=== PATIENT | female | born 1940 | race Caucasian/White ===

== ENCOUNTER 2017-08-01 09:17 | Outpatient (CLI) | payer MEDICARE | END 2017-08-01 09:18 | disposition home or self-care (01) | LOC: BICMAMMO 09:17 | PROVIDERS: ATTEND Obstetrics & Gynecology | DX: Z12.31 Encounter for screening mammogram for malignant neoplasm of breast (principal); Z80.3 Family history of malignant neoplasm of breast; R92.1 Mammographic calcification found on diagnostic imaging of breast | CPT/HCPCS: 77063; 77067 ==

== ENCOUNTER 2018-01-22 16:10 | Inpatient (IN) | payer MEDICARE ==
[2018-01-22 17:01] LABS: Hemoglobin 14.6 g/dL (12.0-16.0); Mean Corpuscular HGB CONC 33.3 g/dL (32.0-36.0); Mean Corpuscular Hemoglobin 35.1 pg (27.0-31.0); Mean Platelet Volume 9.1 fL (7.4-10.4); Platelet Count 270 thou/uL (130-400); RBC Distribution Width 11.9 % (11.5-14.5); Red Blood Cell (RBC) Count 4.16 mill/uL (4.20-5.40); White Blood Cell (WBC) Count 9.6 thou/uL (4.8-10.8)
[2018-01-22 17:21] LABS: #Basophils 0.1 thou/uL (0.0-0.2); #Eosinphils 0.1 thou/uL (0.0-0.7); #Lymphocytes 1.8 thou/uL (1.20-3.40); #Monocytes 0.8 thou/uL (0.11-0.59); #Neutrophils 6.8 thou/uL (1.40-6.50); %Basophils 0.6 % (0.0-1.0); %Eosinophils 1.2 % (0.0-10.0); %Lymphocytes 18.6 % (21.0-51.0); %Monocytes 8.7 % (0.0-10.0); %Neutrophils 70.9 % (42.0-75.0); MDiff Complete? YES; Macrocytosis SLIGHT = 6-15 cells (100X) (0-5/hpf); PLT Morphology Comment Appears Adequate
[2018-01-22 17:29] LABS: ALT (SGPT) 20 U/L (8-55); AST (SGOT) 30 U/L (5-34); Albumin 4.2 g/dL (3.4-4.8); Alkaline Phosphatase 70 U/L (40-150); Anion Gap 12 mmol/L (10-20); BUN (Urea Nitrogen) 19 mg/dL (9.8-20.1); Bilirubin, Total 0.3 mg/dL (0.2-1.2); CK (CPK) 67 U/L (29-168); Calc. Creatinine Clearance 0 mL/min (70-130); Carbon Dioxide 27 mmol/L (23-31); Chloride 101 mmol/L (98-107); Estimated GFR-MDRD 58; Globulin 4.3 g/dL (2.4-3.5); Glucose 136 mg/dL (83-110); Lipase 39 U/L (8-78); Potassium 3.9 mmol/L (3.5-5.1); Protein, Total 8.5 g/dL (6.0-8.3); Sodium 136 mmol/L (136-145)
[2018-01-22 17:33] LABS: CKMB 1.6 ng/mL (0-6.6); Troponin I 0.011 ng/mL (< 0.028)
[2018-01-22] MEDS ORDERED: Metoprolol Tartrate 5 MG/5 ML VIAL ONE (17:43)
[2018-01-22] MEDS ORDERED: Digoxin 0.5 MG/2 ML AMP ONE (18:31)
[2018-01-22 22:18] VITALS: BMI 28.3
[2018-01-22] MEDS ORDERED: Ondansetron PF 4 MG/2 ML Vial IVP PRN (23:36)
[2018-01-22] MEDS ORDERED: Acetaminophen 325 MG TAB PO PRN (23:36)
[2018-01-22] MEDS ORDERED: Diltiazem 125 MG in Sodium Chloride 0.9% 100 ML IVPB SCH (23:45)
[2018-01-22] MEDS ORDERED: Enoxaparin Sodium 80 MG/0.8 ML SYRINGE SC SCH (23:45)
--- NOTE | 2018-01-23 00:13 | HP ---
PRIMARY CARE PROVIDER: Kesha Scott M.D. CHIEF COMPLAINT: Palpitations. HISTORY OF PRESENT ILLNESS: Ms. Fleming is a pleasant 77-year-old lady who was seen at [facility] on 01/22/2018. She reports that over the last month, she has had on and off episodes of palpitations. She denies an y chest pain. She denies any lightheadedness. She denies any fevers or chills. The episodes usually last about 5 minutes. The latest episode started today when she was sewing. It was continuous. She came to the emergency room because of ongoing palpitations. REVIEW OF SYSTEMS: All other systems reviewed and found to be negative. PAST MEDICAL HISTORY: Dyslipidemia and hypertension. PAST SURGICAL HISTORY: None. SOCIAL HISTORY: The patient denies tobacco use, alcohol use or recreational drug use. CODE STATUS: She is FULL CODE. ALLERGIES: No known drug allergies. CURRENT MEDICATIONS: Lisinopril/hydrochlorothiazide 20/25 mg daily, simvastatin 20 mg daily, metopro lol tartrate 50 mg 2 times a day, lisinopril 20 mg daily, and omeprazole 20 mg daily. PHYSICAL EXAMINATION: GENERAL: On examination, Ms. Fleming is awake and alert, not in acute distress. VITAL SIGNS: Blood pressure is 140/88, pulse 115, respiratory rate 16, and oxygen saturation 96% on room air. She is afebrile. EYES: No scleral icterus, no conjunctival pallor. ENT: Moist mucosal membranes, no oropharyngeal erythema or exudates. NECK: Supple, nontender. Trachea is midline. RESPIRATORY: Accessory muscles of breathing are not active. Chest wall movements are symmetric bila terally. LUNGS: Clear to auscultation without wheeze, rhonchi or crepitations. CARDIOVASCULAR: S1 and S2 are heard, tachycardic and irregular. Peripheral pulses palpable. No car otid bruit, no pericardial rub. ABDOMEN: Soft, nontender, bowel sounds heard, no hepatomegaly, no splenomegaly. NEUROLOGIC: Cranial nerves II-XII are intact, deep tendon reflexes 2+. MUSCULOSKELETAL: Power is 5/5 in all 4 extremities. Normal range of movement at all major extremity joints. SKIN: No rashes or subcutaneous nodules. LYMPHATIC: No cervical lymphadenopathy. PSYCHIATRIC: Normal mood, normal affect, patient is oriented to person, place, and time. LABORATORY DATA: Ms. Fleming's labs and investigations were reviewed. I reviewed her electrocardiogr am, which shows atrial fibrillation with rapid ventricular response. I also reviewed her chest x-ray done at [place], which does not show any pulmonary infiltrates. She has normal white count, no rmal hemoglobin, normal platelet count, normal electrolytes, normal creatinine, elevated serum total protein of 8.5, elevated globulin of 4.3, normal albumin, normal troponin I and normal lipase. ASSESSMENT AND PLAN: Ms. Fleming is a pleasant 77-year-old lady who was seen at [facility] on 01/22/2018. Her problem list includes: 1. Atrial fibrillation with rapid ventricular response: Ms. Fleming is presenting with atrial fibril lation with rapid ventricular response. She actually initially presented to the emergency room at [facility] earlier today. She was discharged home from [place], but started having symptoms pierre rtly after going home. She was then advised to go to the emergency room at [facility]. Her e, she has been started on a Cardizem drip. She will be on the Cardizem drip for now. We will consu lt Cardiology Service. We will also start her on therapeutic Lovenox. We will also check TSH. 2. Hypertension: We will monitor vital signs, titrate antihypertensives as needed. 3. Dyslipidemia: We will resume her statin. 4. Gastroesophageal reflux disease: Continue omeprazole, stable. Many thanks for allowing me to participate in your patient's care. Please feel free to contact me wi th any questions or concerns. LEVEL OF RISK: High. LEVEL OF COMPLEXITY: High.
[2018-01-23] MEDS ORDERED: Digoxin 0.5 MG/2 ML AMP SLOW IVP SCH ×4 (03:30→14:30)
[2018-01-23 05:24] LABS: #Basophils 0.1 thou/uL (0.0-0.2); #Eosinphils 0.3 thou/uL (0.0-0.7); #Monocytes 0.9 thou/uL (0.11-0.59); #Neutrophils 5.5 thou/uL (1.40-6.50); %Basophils 0.6 % (0.0-1.0); %Eosinophils 3.4 % (0.0-10.0); %Lymphocytes 22.6 % (21.0-51.0); %Monocytes 10.6 % (0.0-10.0); %Neutrophils 62.7 % (42.0-75.0); Hemoglobin 13.3 g/dL (12.0-16.0); Mean Corpuscular HGB CONC 31.8 g/dL (32.0-36.0); Mean Corpuscular Hemoglobin 33.9 pg (27.0-31.0); Mean Platelet Volume 9.5 fL (7.4-10.4); Platelet Count 267 thou/uL (130-400); RBC Distribution Width 11.9 % (11.5-14.5); Red Blood Cell (RBC) Count 3.93 mill/uL (4.20-5.40); White Blood Cell (WBC) Count 8.7 thou/uL (4.8-10.8)
[2018-01-23 05:44] LABS: Anion Gap 16 mmol/L (10-20); BUN (Urea Nitrogen) 16 mg/dL (9.8-20.1); Calc. Creatinine Clearance 74 mL/min (70-130); Calcium 10.4 mg/dL (7.8-10.44); Carbon Dioxide 26 mmol/L (23-31); Chloride 101 mmol/L (98-107); Estimated GFR-MDRD 70; Glucose 106 mg/dL (83-110); Potassium 3.5 mmol/L (3.5-5.1); Sodium 139 mmol/L (136-145)
[2018-01-23] MEDS ORDERED: Sodium Chloride 0.9% 500 ML IV SCH (07:30)
[2018-01-23] MEDS ORDERED: Potassium Chloride 10 MEQ TAB PO SCH ×2 (08:00→17:00)
[2018-01-23] MEDS: Metoprolol Tartrate 50 MG TAB PO SCH ×3 (08:30→21:30)
[2018-01-23] MEDS ORDERED: Enoxaparin Sodium 80 MG/0.8 ML SYRINGE SC SCH (09:00)
[2018-01-23] MEDS ORDERED: Nitroglycerin 0.4 MG TAB (25 Tab Bottle) PO PRN (09:22)
[2018-01-23] MEDS ORDERED: Diltiazem 125 MG in Sodium Chloride 0.9% 100 ML IVPB SCH (09:30)
[2018-01-23] MEDS ORDERED: Metoprolol Tartrate 25 MG TAB PO SCH ×2 (09:30→21:00)
[2018-01-23] MEDS ORDERED: Magnesium 2 GM/50 ML 2 GM in Premix Bag 1 BAG IVPB SCH (09:45)
[2018-01-23 11:07] LABS: Troponin I 0.024 ng/mL (< 0.028)
[2018-01-23] MEDS: NS 0.9% w/ 40 MEQ KCL 1,000 ML IV SCH (12:54)
[2018-01-23] MEDS ORDERED: diphenhydrAMINE 25 MG CAP PO PRN (14:38)
[2018-01-23] MEDS ORDERED: Melatonin 3 MG TAB PO PRN (14:38)
--- NOTE | 2018-01-23 17:27 | CON ---
DATE OF CONSULTATION: 01/23/2018 HISTORY OF PRESENT ILLNESS. The patient is a 77-year-old woman who presents for evaluation of palpit ations. The patient states for several months she has had brief palpitations these usually last a fe w minutes. She went to the [facility] was noted be in irregular heart rhythm. She received IV metoprolol and was subsequently released. She went back. She developed again recurrent palpitations that would not resolve and came to the [facility]. The patient denies patel ving any chest discomfort. She denies any chest discomfort or dyspnea. The patient reports having d yspnea only with significant exertion. She denies any PND or orthopnea. PAST MEDICAL HISTORY: Significant for; 1. Hypertension. 2. Dyslipidemia. PAST SURGICAL HISTORY: She had a hysterectomy and she has had skin surgery. SOCIAL HISTORY: Nonsmoker. ALLERGIES: No known drug allergies. MEDICATIONS ON ADMISSION: Lisinopril/HCTZ 20/25 daily, Zocor 20 at bedtime, metoprolol 50 b.i.d., li sinopril 20 every day, Prilosec 20 daily. FAMILY HISTORY: There is a positive family history of father had a myocardial infarction. PHYSICAL EXAMINATION: GENERAL: This is an obese woman, in no acute distress. VITAL SIGNS: Blood pressure was 107/61. NECK: Showed no jugular distention. LUNGS: Clear to auscultation. HEART: Regular rate and rhythm, normal S1, S2, no murmurs. ABDOMEN: Distended. EXTREMITIES: No edema. VASCULAR: Radial pulses 2+. LABORATORY DATA: White blood cell count 8.7, hemoglobin 13.3, hematocrit 41.9. Her platelets are 26 7. Sodium 139, potassium 3.5, chloride 101, bicarbonate 26, BUN 16, creatinine is 0.8, troponin 0.01 1. TSH was 1.07. Her EKG revealed her to have atrial tachycardia with a rapid ventricular response. IMPRESSION: 1. Atrial tachycardia. 2. Hypertension. 3. Dyslipidemia. 4. Obesity. This patient presents with atrial tachycardia. The patient has received IV Cardizem and digoxin. Sh e remains with a rapid heart rate. We will give the patient for supplemental IV digoxin. We will as k EP to evaluate. She may benefit from electrocardioversion. We will follow this patient with you t hrough her hospitalization.
--- NOTE | 2018-01-23 18:22 | CON ---
DATE OF SERVICE: 01/23/2018 REFERRING PHYSICIAN: Gaetano Reilly M.D. I am seeing Ms. Fleming at our [facility] as electrophysiology business process consultant. Her problem s are: 1. Paroxysmal atrial arrhythmias. 1A. Paroxysmal palpitations with admission today with persistent atrial flutter with rapid ventricul ar rates. 1B. The patient spontaneously transitioned to atrial fibrillation on IV diltiazem and digoxin alone. 1C. Dizziness, palpitation, high symptomatic rhythm present. 2. No prior history of heart disease or heart attacks. Cardiac workup pending. 3. Coronary artery risk factors including hypertension and dyslipidemia. ALLERGIES: None noted. MEDICATIONS AT HOME: Include lisinopril/hydrochlorothiazide 20/25 mg daily, simvastatin 20 mg daily, metoprolol tartrate 50 mg 2 times a day, lisinopril 20 mg a day, omeprazole 20 mg daily. SUBJECTIVE: Ms. Fleming is here with rapid palpitations. This happened over the last month on and of . She had mild lightheadedness and not feeling well while these episodes occurred. They were usual ly self terminating but eventually sustained since yesterday. She has rapid palpitations. She came to the ER, was evaluated initially, sent home, but then her palpitations recurred and she came back t o the hospital again. She was eventually admitted for rate control. She was placed on diltiazem. I V digoxin administered, and her rate has slowed down some but atrial flutter then continued. Later, she spontaneously converted into atrial fibrillation with now controlled rates at 70 beats per minute . Currently denies angina, CHF. No PND or orthopnea. No stroke-like symptoms. No neurological defici ts. REVIEW OF SYSTEMS: Twelve-point review of systems otherwise unremarkable. . PAST MEDICAL HISTORY: As above. She has no prior history of heart disease or heart attacks. SOCIAL HISTORY: The patient denies smoking, ETOH, or drug abuse. FAMILY HISTORY: Significant for stent placement of a sister. OBJECTIVE DATA: VITAL SIGNS: Blood pressure is 133/68, heart rate 116, respirations 16, temperature 98.3 degrees Fah renheit. GENERAL: She is alert and oriented woman, in no apparent distress. NECK: Supple. Jugular veins not distended. CHEST: Coarse without crackles. CARDIAC: Heart sounds are irregularly irregular. S1 is variable. No murmur or gallop. ABDOMEN: Benign. Bowel sounds positive. EXTREMITIES: Without edema, clubbing, or cyanosis. Pulses are adequate. NEUROLOGIC: Patient nonfocal. MUSCULOSKELETAL: No joint swelling or deformity. SKIN: Without rash. DATABASE: EKGs reviewed initially revealing an atrial flutter with 2:1 AV conduction. The telemetry strips also reviewed with better rate control and typical isthmus-dependent flutter waves are clearl y visible. Subsequently a followup EKG at 2:27 p.m. reveals atrial fibrillation and not typical for atrial flutter anymore. LABORATORY DATA: White count is 8.7, hemoglobin , platelet count is 267. Sodium 139, potassium 3.5, BUN is 16, creatinine 0.8. The chest x-ray from 10:44 a.m. reveals no acute process. ASSESSMENT AND PLAN: Ms. Fleming is a pleasant 77-year-old woman without prior cardiac disease. She has intermittent rapid palpitations which has eventually sustained, and she was admitted with 2:1 con ducted atrial flutter, appears to be typical isthmus-dependent. She received IV diltiazem and digoxi n for successfully rate controlling her and her symptoms have improved with that. Though later, she developed true atrial fibrillation. We discussed the mechanism of both atrial fibrillation and flutter with her. We also detailed the po tential treatment options which could include KECIA-guided cardioversion and possible antiarrhythmic th erapy in addition to that. We also detailed the pros and cons about both approaches and chances of p roarrhythmia and strokes were detailed. On the other hand, I think overall me and the patient both w ould prefer rhythm control over rate control at this time. We also detailed the option of future ablation procedure as well. After discussion with Dr. Reilly , we are planning to do KECIA guided cardioversion today, possibly starting flecainide if no intracardi ac thrombus is present and significant structural heart disease is present. I would like to see her back in the office in 4-6 weeks. In the meantime, she would benefit from oral anticoagulation. Thank you for allowing me to participate in the care of this patient.
--- NOTE | 2018-01-23 19:51 | PDOC.PN ---
- Subjective Encounter Start Date: 01/23/18 Encounter Start Time: 10:30 Patient seen and examined for new onset Afib with RVR. Off Cardizem drip due to hypotension. No new complaints. No overnight events - Objective Resuscitation Status: Resuscitation Status FULL:Full Resuscitation MAR Reviewed: Yes Vital Signs & Weight: Vital Signs (12 hours) Temp Pulse Resp BP Pulse Ox 01/23/18 16:18 98 F 105 H 16 160/73 H 95 01/23/18 14:37 118 H 01/23/18 12:55 118 H 01/23/18 12:00 98.3 F 116 H 16 133/68 95 01/23/18 08:27 118 H 107/61 01/23/18 08:00 94 L Weight Weight 170 lb 4.8 oz Result Diagrams: 01/23/18 04:48 01/23/18 04:48 Radiology Reviewed by me: Yes (CXR - Neg) EKG Reviewed by me: Yes (Tele Afib/Aflutter) Phys Exam - Physical Examination Constitutional: NAD Respiratory: no wheezing, no rales, no rhonchi, clear to auscultation bilateral Cardiovascular: no rub, irregular S1S2 +, No heaves/pulsations Gastrointestinal: soft, non-tender, no distention, positive bowel sounds Musculoskeletal: no edema, pulses present Neurological: non-focal, normal sensation, moves all 4 limbs Psychiatric: normal affect, A&O x 3 Dx/Plan - Plan DVT proph w/SCDs 1. New onset Afib/Aflutter with RVR 2. HTN 3. HLD 4. GERD 5. Chronic hypercalcemia - PCP to follow 6. Hypomagnesemia PLAN: Cont Anticoag - She understands the risk of anticoag Resume Metoprolol at low dose Restart Cardizem drip at 2.5 mg/hr Hold Lisinopril AM labs Replace Magnessium Cont other meds as below Review of Systems - Review of Systems Respiratory: negative: Cough, Dry, Shortness of Breath, Hemoptysis, SOB with Excertion, Pleuritic Pain, Sputum, Wheezing Cardiovascular: negative: chest pain, palpitations, orthopnea, paroxysmal nocturnal dyspnea, edema, light headedness, other - Medications/Allergies Allergies/Adverse Reactions: Allergies Allergy/AdvReac Type Severity Reaction Status Date / Time No Known Allergies Allergy Verified 01/22/18 23:54 Medications: Current Medications Acetaminophen (Tylenol) 650 mg PO Q4H PRN PRN Reason: Headache/Fever/Mild Pain (1-3) Apixaban (Eliquis) 5 mg PO BID [facility] Atorvastatin Calcium (Lipitor) 10 mg PO HS [facility] Diphenhydramine HCl (Benadryl) 25 mg PO Q6H PRN PRN Reason: Itching & Insomnia Flecainide Acetate (Tambocor) 50 mg PO Q12HR [facility] Potassium Chloride/Sodium Chloride (Ns 0.9% W/ 40 Meq Kcl) 1,000 mls @ 50 mls/ hr IV .Q20H [facility] Last Admin: 01/23/18 12:54 Dose: 1,000 mls Lisinopril (Zestril) 20 mg PO HS [facility] Melatonin (Melatonin) 3 mg PO HS PRN PRN Reason: Insomnia Metoprolol Tartrate (Lopressor) 50 mg PO BID [facility] Nitroglycerin (Nitrostat) 0.4 mg PO Q5MIN PRN PRN Reason: Chest Pain Ondansetron HCl (Zofran) 4 mg IVP Q6H PRN PRN Reason: Nausea/Vomiting Pantoprazole Sodium (Protonix) 40 mg PO DAILY [facility] Last Admin: 01/23/18 08:30 Dose: 40 mg Potassium Chloride (Klor-Con 10) 10 meq PO BID-[facility] Last Admin: 01/23/18 16:23 Dose: Not Given Sodium Chloride (Flush - Normal Saline) 10 ml IVF PRN PRN PRN Reason: Saline Flush
[2018-01-23] MEDS ORDERED: Atorvastatin Calcium 10 MG TAB PO SCH (21:00)
[2018-01-23] MEDS ORDERED: Lisinopril 20 MG TAB PO SCH (21:00)
[2018-01-23] MEDS: Apixaban 5 MG TAB PO SCH (21:29)
[2018-01-23] MEDS: Flecainide 50 MG TAB PO SCH (21:29)
[2018-01-24 05:46] LABS: Hemoglobin 11.9 g/dL (12.0-16.0); Platelet Count 240 thou/uL (130-400)
[2018-01-24 06:13] LABS: Anion Gap 11 mmol/L (10-20); BUN (Urea Nitrogen) 18 mg/dL (9.8-20.1); Calc. Creatinine Clearance 74 mL/min (70-130); Calcium 9.6 mg/dL (7.8-10.44); Carbon Dioxide 25 mmol/L (23-31); Chloride 107 mmol/L (98-107); Estimated GFR-MDRD 70; Glucose 90 mg/dL (83-110); Potassium 4.4 mmol/L (3.5-5.1); Sodium 139 mmol/L (136-145)
[2018-01-24] MEDS: NS 0.9% w/ 40 MEQ KCL 1,000 ML IV SCH (06:44)
[2018-01-24] MEDS: Metoprolol Tartrate 50 MG TAB PO SCH (08:59)
[2018-01-24] MEDS: Flecainide 50 MG TAB PO SCH (08:59)
[2018-01-24] MEDS: Apixaban 5 MG TAB PO SCH (08:59)
[2018-01-24] MEDS ORDERED: Enoxaparin Sodium 40 MG/0.4 ML SYRINGE SC SCH (09:00)
[2018-01-24 10:13] LABS: Hemoglobin 13.4 g/dL (12.0-16.0)
--- NOTE | 2018-01-24 13:01 | DIS ---
DATE OF ADMISSION: 01/22/2018 DATE OF DISCHARGE: 01/24/2018 DISCHARGE DISPOSITION: Home. FOLLOWUP: 1. Follow up with primary care physician, Dr. Kesha Scott in 1 week. 2. Follow up with Cardiology, Dr. Gaetano Reilly in 2 weeks. The patient was seen and examined on the day of discharge. Denies any new complaints, no chest pain, shortness of breath, palpitations reported. DISCHARGE MEDICATIONS: 1. Eliquis 5 mg b.i.d. 2. Flecainide 50 mg b.i.d. 3. All other home medications were left, unchanged. MEDICATION DISCONTINUED THIS ADMISSION: Lisinopril/HCTZ. However, the patient will continue taking Lisinopril 20 mg at bedtime. ALLERGIES: No known drug allergies. BRIEF HOSPITAL COURSE: The patient is a 77-year-old female with hypertension and hyperlipidemia who presented to the emergency room with palpitations. Her workup was consistent with atrial fibrillatio n with rapid ventricular response. She was admitted to the telemetry unit. She was started on antic oagulation along with Cardizem drip. Cardizem drip was later discontinued. She was scheduled for TE E cardioversion; however, prior to cardioversion, the patient converted to sinus rhythm without any i ntervention. She has been started on flecainide. Lovenox has been changed to Eliquis. Due to blood pressure in the lower range, lisinopril/HCTZ will be discontinued for now. Primary care physician a dvised to follow. She had brief period of hypotension while on Cardizem drip that improved. She has been cleared by Cardiology for discharge. FINAL DIAGNOSES: 1. New onset atrial flutter/fibrillation with rapid ventricular response. The patient converted to sinus rhythm without any intervention. The patient has been started on anticoagulation. Risks not l imited to life threatening bleeding has been discussed with the patient. She stated understanding. 2. Hypertension. 3. Hyperlipidemia. 4. Gastroesophageal reflux disease. 5. Chronic hypercalcemia with normal phosphorus. 6. Hypomagnesemia. Plan of care was discussed with the patient in detail. She stated understanding. DIAGNOSTIC TESTS: 1. TSH was 1.07. 2. Echocardiogram has been done, report pending at this time. Troponin negative.
[2018-01-24 14:31] VITALS: BP 120/59; TEMP 98
--- NOTE | 2018-01-26 16:57 | EKG ---
Test Reason : Blood Pressure : / mmHG Vent. Rate : 065 BPM Atrial Rate : 065 BPM P-R Int : 180 ms QRS Dur : 094 ms QT Int : 420 ms P-R-T Axes : 078 009 048 degrees QTc Int : 436 ms Normal sinus rhythm Normal ECG When compared with ECG of 23-JAN-2018 17:47, (Unconfirmed) Nonspecific T wave abnormality no longer evident in Inferior leads Confirmed by DR. Montez HERNANDEZ (3) on 01/26/2018 4:57:40 PM Referred By: GRISEL Confirmed By:DR. Montez HERNANDEZ
--- NOTE | 2018-01-26 16:57 | EKG ---
Test Reason : Blood Pressure : / mmHG Vent. Rate : 071 BPM Atrial Rate : 071 BPM P-R Int : 178 ms QRS Dur : 088 ms QT Int : 384 ms P-R-T Axes : 059 -26 027 degrees QTc Int : 417 ms Normal sinus rhythm Nonspecific ST-T changes Confirmed by DR. Montez HERNANDEZ (3) on 01/26/2018 4:56:51 PM Referred By: LORIN Confirmed By:DR. Montez HERNANDEZ
== END 2018-01-24 14:57 | disposition home or self-care (01) | DRG 310 ==
LOC: ERS 16:10 → 2NO 19:00
PROVIDERS: ADMIT Internal Medicine; ATTEND Internal Medicine
DX: I48.91 Unspecified atrial fibrillation (principal); E78.5 Hyperlipidemia, unspecified; I10 Essential (primary) hypertension; K21.9 Gastro-esophageal reflux disease without esophagitis; E83.52 Hypercalcemia; E83.42 Hypomagnesemia; I95.9 Hypotension, unspecified; I48.92 Unspecified atrial flutter; E66.9 Obesity, unspecified; Z68.28 Body mass index [BMI] 28.0-28.9, adult; Z82.49 Family history of ischemic heart disease and other diseases of the circulatory system
CPT/HCPCS: 36415; 80048; 83690; 83735; 84100; 84443; 84484; 85014; 85018; 85025; 85049; 93005; 93010; 93306; 94760; 96365; 96366; 96375; 96376; J1160; J1650; J7050

== ENCOUNTER 2018-02-28 12:40 | Emergency (ER) | payer MEDICARE ==
[2018-02-28 13:34] LABS: #Eosinphils 0.1 thou/uL (0.0-0.7); #Monocytes 0.6 thou/uL (0.11-0.59); %Basophils 0.7 % (0.0-1.0); %Eosinophils 1.5 % (0.0-10.0); %Lymphocytes 28.9 % (21.0-51.0); %Monocytes 9.4 % (0.0-10.0); %Neutrophils 59.5 % (42.0-75.0); Hemoglobin 13.6 g/dL (12.0-16.0); Mean Corpuscular HGB CONC 34.4 g/dL (32.0-36.0); Mean Platelet Volume 8.9 fL (7.4-10.4); Platelet Count 238 thou/uL (130-400); RBC Distribution Width 12.1 % (11.5-14.5); Red Blood Cell (RBC) Count 3.78 mill/uL (4.20-5.40); White Blood Cell (WBC) Count 6.8 thou/uL (4.8-10.8)
[2018-02-28 13:55] LABS: ALT (SGPT) 18 U/L (8-55); AST (SGOT) 26 U/L (5-34); Albumin 4.1 g/dL (3.4-4.8); Alkaline Phosphatase 58 U/L (40-150); Anion Gap 16 mmol/L (10-20); BUN (Urea Nitrogen) 21 mg/dL (9.8-20.1); Bilirubin, Total 0.4 mg/dL (0.2-1.2); CK (CPK) 65 U/L (29-168); Calc. Creatinine Clearance 0 mL/min (70-130); Carbon Dioxide 23 mmol/L (23-31); Chloride 101 mmol/L (98-107); Estimated GFR-MDRD 64; Glucose 108 mg/dL (83-110); Lipase 44 U/L (8-78); Potassium 3.7 mmol/L (3.5-5.1); Protein, Total 8.1 g/dL (6.0-8.3); Sodium 136 mmol/L (136-145)
--- NOTE | 2018-02-28 14:19 | RAD ---
SINGLE VIEW CHEST: Date: 02/28/18 COMPARISON: 01/22/18. HISTORY: Chest pain. FINDINGS: Single view of the chest shows a normal sized cardiomediastinal silhouette with atherosclerotic calci fications in the aorta. There is no evidence of consolidation, mass, or pleural effusion. Scoliotic c urvature and degenerative changes are seen in the spine. IMPRESSION: 1. No evidence of acute cardiopulmonary disease. 2. Atherosclerotic disease. POS: [facility]
--- NOTE | 2018-03-03 13:33 | EKG ---
Test Reason : TACHYCARDIA Blood Pressure : / mmHG Vent. Rate : 094 BPM Atrial Rate : 094 BPM P-R Int : 108 ms QRS Dur : 112 ms QT Int : 382 ms P-R-T Axes : 064 -33 027 degrees QTc Int : 477 ms Sinus rhythm with sinus arrhythmia with short VA Left axis deviation Nonspecific ST abnormality Abnormal ECG Confirmed by ELSA RUSSELL, TEO ([id number]), telegraph editor LAZ SILVA ([id number]) on 03/03/2018 1:32:55 PM Referred By: Confirmed By:TEO HUNTER MD
== END 2018-02-28 15:40 | disposition home or self-care (01) ==
LOC: ERS 12:40
DX: R00.0 Tachycardia, unspecified (principal); I48.91 Unspecified atrial fibrillation; E78.5 Hyperlipidemia, unspecified; I10 Essential (primary) hypertension; Z79.899 Other long term (current) drug therapy
CPT/HCPCS: 36415; 71045; 80053; 82550; 83690; 84484; 85025; 93005

== ENCOUNTER 2018-04-13 05:44 | Inpatient (IN) | payer MEDICARE ==
[2018-04-10 12:36] VITALS: BMI 26.1
[2018-04-13] MEDS ORDERED: Heparin 10,000 UNITS/1 ML VIAL ONE ×2 (06:54→09:02)
[2018-04-13 06:55] LABS: #Basophils 0.1 thou/uL (0.0-0.2); #Eosinphils 0.1 thou/uL (0.0-0.7); #Lymphocytes 2.2 thou/uL (1.20-3.40); #Monocytes 0.6 thou/uL (0.11-0.59); %Basophils 1.1 % (0.0-1.0); %Eosinophils 1.4 % (0.0-10.0); %Lymphocytes 37.1 % (21.0-51.0); %Monocytes 9.3 % (0.0-10.0); %Neutrophils 51.1 % (42.0-75.0); Hemoglobin 13.5 g/dL (12.0-16.0); Mean Corpuscular HGB CONC 33.9 g/dL (32.0-36.0); Mean Corpuscular Hemoglobin 36.4 pg (27.0-31.0); Mean Platelet Volume 8.5 fL (7.4-10.4); Platelet Count 217 thou/uL (130-400); RBC Distribution Width 12.2 % (11.5-14.5); White Blood Cell (WBC) Count 5.9 thou/uL (4.8-10.8)
[2018-04-13 06:59] LABS: INR-International Normal Ratio 1.2; Prothrombin Time 15.1 SEC (12.0-14.7)
[2018-04-13 07:00] LABS: PTT 35.1 SEC (22.9-36.1)
[2018-04-13 07:12] LABS: Anion Gap 19 mmol/L (10-20); BUN (Urea Nitrogen) 16 mg/dL (9.8-20.1); Calc. Creatinine Clearance 75 mL/min (70-130); Calcium 11.2 mg/dL (7.8-10.44); Carbon Dioxide 23 mmol/L (23-31); Chloride 102 mmol/L (98-107); Estimated GFR-MDRD 75; Glucose 97 mg/dL (83-110); Potassium 3.5 mmol/L (3.5-5.1); Sodium 140 mmol/L (136-145)
[2018-04-13] MEDS ORDERED: Heparin 25,000 units/D5W 500 ML ONE (10:13)
[2018-04-13] MEDS ORDERED: Isoproterenol 0.2 MG/1 ML AMP ONE (10:14)
[2018-04-13] MEDS ORDERED: Fentanyl 100 MCG/2 ML VIAL ONE (10:54)
[2018-04-13] MEDS ORDERED: Protamine Sulfate 50 MG/5 ML VIAL ONE (11:43)
[2018-04-13] MEDS ORDERED: Amlodipine 5 MG TAB PO PRN (12:27)
[2018-04-13] MEDS ORDERED: Furosemide 20 MG TAB PO PRN (12:28)
[2018-04-13] MEDS ORDERED: Acetaminophen/Codeine 30-300mg Tablet PO PRN (12:30)
[2018-04-13] MEDS ORDERED: Ondansetron PF 4 MG/2 ML Vial ONE (12:33)
[2018-04-13] MEDS ORDERED: Rocuronium Bromide 10 MG/ML (10ML VIAL) ONE (13:58)
[2018-04-13] MEDS ORDERED: PROPOFOL 200 MG/20 ML VIAL ONE (13:58)
[2018-04-13] MEDS ORDERED: Lidocaine 1% PF 5 ML VIAL ONE (13:58)
[2018-04-13] MEDS: Sucralfate 1 GM TAB PO SCH ×2 (18:19→23:55)
--- NOTE | 2018-04-13 20:09 | EKG ---
Test Reason : PREOP Blood Pressure : / mmHG Vent. Rate : 076 BPM Atrial Rate : 076 BPM P-R Int : 188 ms QRS Dur : 098 ms QT Int : 428 ms P-R-T Axes : 051 -14 021 degrees QTc Int : 481 ms Normal sinus rhythm Normal ECG When compared with ECG of 28-FEB-2018 12:51, No significant change was found Confirmed by BRENDA RUSSELL, SSamaria ([id number]) on 04/13/2018 8:08:56 PM Referred By: [facility] Confirmed By:DR. Olamide GUTIERREZ MD
--- NOTE | 2018-04-13 20:22 | EKG ---
Test Reason : POST ABLATION Blood Pressure : / mmHG Vent. Rate : 082 BPM Atrial Rate : 082 BPM P-R Int : 202 ms QRS Dur : 094 ms QT Int : 418 ms P-R-T Axes : 086 -04 020 degrees QTc Int : 488 ms Normal sinus rhythm Nonspecific T wave abnormality Prolonged QT Abnormal ECG When compared with ECG of 13-APR-2018 06:53, (Unconfirmed) No significant change was found Confirmed by BRENDA RUSSELL, DR. S. (4) on 04/13/2018 8:22:33 PM Referred By: ASMITA Confirmed By:DR. Olamide GUTIERREZ MD
[2018-04-13] MEDS: Metoprolol Tartrate 25 MG TAB PO SCH (20:44)
[2018-04-13] MEDS: Atorvastatin Calcium 10 MG TAB PO SCH (20:44)
[2018-04-13] MEDS: Calcium Carbonate + Vit D 1 TAB PO SCH (20:44)
[2018-04-13] MEDS: Apixaban 5 MG TAB PO SCH (20:44)
[2018-04-13] MEDS: Acetaminophen ER (8hr) 650 MG TAB PO PRN (20:44)
[2018-04-14] MEDS ORDERED: Diltiazem HCl 125 MG, Admixture Fee 1 EACH in Sodium Chloride 0.9% 100 ML IVPB SCH (04:00)
[2018-04-14] MEDS: Sucralfate 1 GM TAB PO SCH ×3 (06:05→18:52)
[2018-04-14 06:25] LABS: Platelet Count 202 thou/uL (130-400)
[2018-04-14] MEDS: Ascorbic Acid 500 mg Chewable Tablet PO SCH (09:07)
[2018-04-14] MEDS: Calcium Carbonate + Vit D 1 TAB PO SCH ×2 (09:07→20:28)
[2018-04-14] MEDS: Metoprolol Tartrate 25 MG TAB PO SCH ×2 (09:07→20:28)
[2018-04-14] MEDS: Ubidecarenone 50 MG CAP PO SCH (09:08)
[2018-04-14] MEDS: Loratadine 10 MG TAB PO SCH (09:08)
[2018-04-14] MEDS: Magnesium Oxide 250 MG TAB PO SCH (09:08)
[2018-04-14] MEDS: Apixaban 5 MG TAB PO SCH ×2 (09:09→20:34)
[2018-04-14] MEDS: Lisinopril/Hydrochlorothiazide 20/25 mg Tablet PO SCH (10:07)
--- NOTE | 2018-04-14 11:14 | OP ---
DATE OF PROCEDURE: 04/13/2018 ELECTROPHYSIOLOGY STUDY AND RADIOFREQUENCY ABLATION REPORT REFERRING PHYSICIAN: Dr. Reilly. REASON FOR PROCEDURE: Ms. Fleming is a 77-year-old woman, who has history of paroxysmal atrial fibrillation, hypertension, prior negative stress test, LVEF 52%. She had episodes of bradycardia on flecainide with prolonged pauses. Flecainide was stopped. She is here for a pulmonary venous isolation procedure and the EP study. DESCRIPTION OF PROCEDURE: The patient received propofol general anesthesia as per Anesthesia specialist. The right femoral venous area was prepped, draped, and anesthetized using subcutaneous lidocaine and both sites were accessed under ultrasound guidance x2. On the left side, an 11-Mohawk sheath was used to advance the ICE catheter, which was used to monitor the transseptal procedure as well as any effusion development throughout the case. Also on the left side, a Preface sheath was introduced which was used to advance a DuoDeca catheter in the right atrium and eventually CS position. From the right femoral veins, initially a ThermoCool SFST catheter was advanced to the right atrium and 3D map with right atrium was obtained. His bundle, CS, was delineated. Following that, the 8-Mohawk sheath on the right was exchanged to 2 SL1 transseptal sheaths, which were used with [employer] transseptal needle to perform transseptal puncture x2 under ICE catheter monitoring. At this point, heparin was introduced and heparin was monitored to keep the ACT over 350 throughout the case. Through the left atrial sheaths, a 20-pole deflectable Lasso catheter and the ThermoCool SFST catheter were advanced. The 3D map of the left atrium, left atrial appendage, and all four veins were obtained and pulmonary venous isolation procedures of all four veins were performed. High amount of scar was noted in the beginning of the procedure. The right-sided veins required relatively small amount of ablation for isolation. Left-sided veins were also isolated. The posterior wall was also isolated with the superior and an inferior line. During the case, the patient developed atrial fibrillation with catheter manipulation, but during ablation, we were able to terminate atrial fibrillation. Basic EP study was performed at this point with the following finding. Baseline cycle length 830 milliseconds, LA 210, QRS duration 112 milliseconds, QT 385 milliseconds, AH 72 milliseconds, HV 50 milliseconds. Sinus node recovery time was 1336 milliseconds. Corrected sinus node recovery time was 500 milliseconds, it is prolonged. The AV Wenckebach cycle length was 360 milliseconds. The ablation catheter was advanced through the LV and LV pacing was performed, yielding retrograde Wenckebach cycle length of 400 milliseconds. Concentric retrograde VA conduction was seen ruling out significant accessory pathway with 400/[address] and extrastimuli testing. We were able to reach ERP at 400/200ms. No dual AV laura physiology was seen. Isuprel was administered up to 10 mcg. The pulmonary veins were all checked as was a posterior wall checked for reconnection. No reconnection was seen. Burst atrial pacing induced atrial tachycardia, which appears a left atrial tachycardia. Cautery in the inferior portion of left atrium over CS roof was performed, which changed the morphology. Throughout the case, an esophageal temperature probe was used to monitor and avoid excessive heating of the esophagus. At this point, an atrial flutter with cycle length about 260 milliseconds with activation typical for the right atrial flutter was seen. The catheter was withdrawn to the right atrium and cavotricuspid isthmus ablation was performed. During the ablation, the morphology of the flutter changed, eventually atypical left-sided flutters were again seen and at this point, the cardioversion was performed. Following that, the patient maintained sinus rhythm. Total of 30 min ablation performend at 40W. At the end of the case, the KYRGYZ cardiac silhouette did not change significantly and ICE catheter revealed only trivial effusion. The patient remained stable throughout the case. No complications noted. Protamine 4 mg was administered, and the sheaths were removed in the laborer pullet farm. CONCLUSION: 1. Inducible atrial fibrillation as well as typical appearing atrial flutter during the case as well as atypical atrial flutter circuits also seen. 2. Successful pulmonary venous isolation and posterior wall isolation were performed. 3. Additional lesions basal left atrial at the CS roof were delivered. 4. Cavotricuspid isthmus ablation performed. 5. Abnormal sinus node recovery time with corrected SNRT is 500 milliseconds. 6. Normal AV laura and His-Purkinje function. 7. No evidence of accessory pathway with left ventricular pacing. PLAN: Resume anticoagulation. Monitor for recurrent arrhythmias. Consider pacing if symptomatic abimbola arrhtyhmias occur. Job ID: [id number] [facility]
--- NOTE | 2018-04-14 15:11 | PRG ---
DATE OF SERVICE: 04/14/2018 ELECTROPHYSIOLOGY FOLLOWUP NOTE SUBJECTIVE: Ms. Fleming had some palpitations last night around midnight, then she needed to be placed on diltiazem drip. She had a conversion pause, almost 8 seconds in duration, which she felt sitting on the side of a bed. She got near syncopal , but did not pass out completely. She had no PND or orthopnea. Blood pressure was slightly on the borderline in the morning, but has improved since then. Mild nausea occurred this morning. Occasional atypical pleuritic chest discomforts are felt. OBJECTIVE: VITAL SIGNS: Blood pressure is 103/72, heart rate 83, respirations 16, temperature is 97.5 degrees Fahrenheit. GENERAL: Reveals alert and oriented woman, in no apparent distress. NECK: Neck veins have minimal distention. CHEST: Coarse without crackles. HEART: Heart sounds are regular with ectopy. No murmur or gallop. ABDOMEN: Benign. Bowel sounds positive. EXTREMITIES: Lower extremities without edema, clubbing, or cyanosis. DATABASE: The telemetry strips reviewed, revealed an episode of atrial fibrillation/atypical flutter overnight. Subsequently, development of sinus rhythm with PACs are seen. There is up to 8-second pauses noted. Since then, sinus rhythm with PACs are seen. LABORATORY DATA: Hemoglobin 13 and platelet count is 202 this morning. ASSESSMENT AND PLAN: Ms. Fleming is a pleasant 77-year-old woman with prior history of sinus node disease and atrial fibrillation. She underwent an extensive left atrial and right atrial ablation procedure yesterday, but she still had episodes of recurrence of atrial fibrillation/atypical atrial flutter overnight. She also has more manifestation of sinus node disease while on diltiazem drip up to 8-second pause. Again, we discussed the treatment options. 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 I discussed with her the option of pacing and subsequent antiarrhythmic therapy. Pros and cons discussed. She will likely need to continue Eliquis and to a pacemaker and then resume OAC after that. Will start antiarrhythmic therapy with tikosyn. Risks and benefits discussed. She understands and willing to proceed. We will schedule her for possibly tomorrow. Job ID: [id number] [facility]
[2018-04-14] MEDS: Atorvastatin Calcium 10 MG TAB PO SCH (20:28)
[2018-04-14] MEDS: Dofetilide 0.125 MG CAP PO SCH (20:28)
[2018-04-14] MEDS ORDERED: Dofetilide 0.25 MG CAP PO SCH (21:00)
--- NOTE | 2018-04-14 21:33 | EKG ---
Test Reason : Blood Pressure : / mmHG Vent. Rate : 098 BPM Atrial Rate : 153 BPM P-R Int : 000 ms QRS Dur : 092 ms QT Int : 362 ms P-R-T Axes : 181 -17 -35 degrees QTc Int : 462 ms Unusual P axis, possible ectopic atrial tachycardia with 2nd degree A-V block (Mobitz I) Nonspecific ST and T wave abnormality Abnormal ECG When compared with ECG of 13-APR-2018 12:53, Ectopic atrial rhythm has replaced Sinus rhythm Confirmed by BRENDA RUSSELL, DR. Quiñonez (4) on 04/14/2018 9:32:46 PM Referred By: [facility] Confirmed By:DR. Olamide GUTIERREZ MD
[2018-04-15] MEDS: Sucralfate 1 GM TAB PO SCH ×5 (00:35→23:18)
[2018-04-15] MEDS: Acetaminophen ER (8hr) 650 MG TAB PO PRN (04:09)
[2018-04-15] MEDS: Apixaban 5 MG TAB PO SCH ×2 (09:02→20:35)
[2018-04-15] MEDS: Magnesium Oxide 250 MG TAB PO SCH (09:02)
[2018-04-15] MEDS: Calcium Carbonate + Vit D 1 TAB PO SCH ×2 (09:02→20:35)
[2018-04-15] MEDS: Ubidecarenone 50 MG CAP PO SCH (09:02)
[2018-04-15] MEDS: Ascorbic Acid 500 mg Chewable Tablet PO SCH (09:02)
[2018-04-15] MEDS: Potassium Chloride 8 MEQ TAB PO SCH (09:02)
[2018-04-15] MEDS: Lisinopril/Hydrochlorothiazide 20/25 mg Tablet PO SCH (09:17)
[2018-04-15] MEDS: Loratadine 10 MG TAB PO SCH (09:20)
[2018-04-15] MEDS: Metoprolol Tartrate 25 MG TAB PO SCH ×2 (09:21→20:35)
[2018-04-15] MEDS: Dofetilide 0.125 MG CAP PO SCH ×2 (09:23→20:36)
[2018-04-15] MEDS ORDERED: Fentanyl 100 MCG/2 ML VIAL ONE (14:12)
[2018-04-15] MEDS ORDERED: Midazolam HCl 2 mg/2 ml Vial ONE (14:12)
[2018-04-15] MEDS ORDERED: CEFAZOLIN 1 GM VIAL ONE (14:16)
[2018-04-15] MEDS ORDERED: Lidocaine 1% (PF) 30 ML VIAL ONE (14:44)
--- NOTE | 2018-04-15 16:02 | EKG ---
Test Reason : PRE TIKOSYN Blood Pressure : / mmHG Vent. Rate : 073 BPM Atrial Rate : 073 BPM P-R Int : 188 ms QRS Dur : 096 ms QT Int : 436 ms P-R-T Axes : 065 -03 023 degrees QTc Int : 480 ms Normal sinus rhythm Normal ECG When compared with ECG of 14-APR-2018 06:42, Sinus rhythm has replaced Ectopic atrial rhythm Nonspecific T wave abnormality, improved in Inferior leads Nonspecific T wave abnormality no longer evident in Anterior leads Confirmed by BRENDA RUSSELL, DR. Quiñonez (4) on 04/15/2018 4:01:23 PM Referred By: [facility] Confirmed By:DR. Olamide GUTIERREZ MD
[2018-04-15] MEDS: Acetaminophen/Codeine 30-300mg Tablet PO PRN ×2 (17:02→21:26)
[2018-04-15] MEDS: Atorvastatin Calcium 10 MG TAB PO SCH (20:35)
[2018-04-16] MEDS: Acetaminophen/Codeine 30-300mg Tablet PO PRN (03:10)
[2018-04-16] MEDS: Sucralfate 1 GM TAB PO SCH ×4 (05:17→23:53)
[2018-04-16] MEDS: Cephalexin 250 MG CAP PO SCH ×4 (05:17→23:53)
[2018-04-16 06:33] LABS: Hemoglobin 11.2 g/dL (12.0-16.0); Platelet Count 161 thou/uL (130-400)
[2018-04-16 06:51] LABS: Anion Gap 14 mmol/L (10-20); BUN (Urea Nitrogen) 8 mg/dL (9.8-20.1); Calc. Creatinine Clearance 84 mL/min (70-130); Calcium 10.1 mg/dL (7.8-10.44); Carbon Dioxide 26 mmol/L (23-31); Chloride 101 mmol/L (98-107); Estimated GFR-MDRD 83; Glucose 106 mg/dL (83-110); Potassium 3.3 mmol/L (3.5-5.1); Sodium 138 mmol/L (136-145)
--- NOTE | 2018-04-16 08:18 | RAD ---
CHEST 1 VIEW: Date: 04/16/18 INDICATION: Pacemaker placement. COMPARISON: Prior exam dated 02/28/18. FINDINGS: There is a new dual lead pacemaker overlying the left chest wall. Leads project in the expected posit ion. There is mild cardiomegaly. Pericardial fat pad along the right heart border is stable. Chronic lung changes are similar appearing. Osseous structures are unchanged. No pneumothorax is grossly evid ent. IMPRESSION: Pacemaker placement. No pneumothorax. POS: [facility]
[2018-04-16] MEDS: Ubidecarenone 50 MG CAP PO SCH (09:36)
[2018-04-16] MEDS: Potassium Chloride 8 MEQ TAB PO SCH (09:37)
[2018-04-16] MEDS: Lisinopril/Hydrochlorothiazide 20/25 mg Tablet PO SCH (09:37)
[2018-04-16] MEDS: Calcium Carbonate + Vit D 1 TAB PO SCH ×2 (09:37→20:18)
[2018-04-16] MEDS: Magnesium Oxide 250 MG TAB PO SCH (09:37)
[2018-04-16] MEDS: Ascorbic Acid 500 mg Chewable Tablet PO SCH (09:37)
[2018-04-16] MEDS: Apixaban 5 MG TAB PO SCH ×2 (09:37→20:18)
[2018-04-16] MEDS: Dofetilide 0.125 MG CAP PO SCH ×2 (09:38→20:18)
[2018-04-16] MEDS: Loratadine 10 MG TAB PO SCH (09:38)
[2018-04-16] MEDS: Metoprolol Tartrate 25 MG TAB PO SCH ×2 (09:39→20:17)
[2018-04-16] MEDS: Acetaminophen ER (8hr) 650 MG TAB PO PRN ×2 (10:21→15:35)
--- NOTE | 2018-04-16 13:16 | EKG ---
Test Reason : Blood Pressure : / mmHG Vent. Rate : 074 BPM Atrial Rate : 074 BPM P-R Int : 220 ms QRS Dur : 102 ms QT Int : 424 ms P-R-T Axes : 026 -12 008 degrees QTc Int : 470 ms Electronic atrial pacemaker When compared with ECG of 15-APR-2018 11:19, Electronic atrial pacemaker has replaced Sinus rhythm Confirmed by BRENDA RUSSELL, DR. Quiñonez (4) on 04/16/2018 1:16:47 PM Referred By: [facility] Confirmed By:DR. Olamide GUTIERREZ MD
--- NOTE | 2018-04-16 17:09 | EKG ---
Test Reason : 2 HR POST TIKOSYN Blood Pressure : / mmHG Vent. Rate : 075 BPM Atrial Rate : 075 BPM P-R Int : 192 ms QRS Dur : 096 ms QT Int : 418 ms P-R-T Axes : 000 -12 024 degrees QTc Int : 466 ms Electronic atrial pacemaker When compared with ECG of 16-APR-2018 08:36, (Unconfirmed) Electronic atrial pacemaker has replaced Sinus rhythm Confirmed by BRENDA RUSSELL, SSamaria (4) on 04/16/2018 5:09:32 PM Referred By: [facility] Confirmed By:DR. Olamide GUTIERREZ MD
[2018-04-16] MEDS: Atorvastatin Calcium 10 MG TAB PO SCH (20:18)
[2018-04-17] MEDS: Acetaminophen ER (8hr) 650 MG TAB PO PRN ×2 (00:10→09:12)
[2018-04-17] MEDS: Sucralfate 1 GM TAB PO SCH ×2 (06:08→12:33)
[2018-04-17] MEDS: Cephalexin 250 MG CAP PO SCH ×2 (06:08→12:33)
[2018-04-17 08:18] VITALS: TEMP 98.3
[2018-04-17] MEDS: Dofetilide 0.125 MG CAP PO SCH (09:12)
[2018-04-17] MEDS: Magnesium Oxide 250 MG TAB PO SCH (09:12)
[2018-04-17] MEDS: Ubidecarenone 50 MG CAP PO SCH (09:12)
[2018-04-17] MEDS: Apixaban 5 MG TAB PO SCH (09:13)
[2018-04-17] MEDS: Potassium Chloride 8 MEQ TAB PO SCH (09:13)
[2018-04-17] MEDS: Lisinopril/Hydrochlorothiazide 20/25 mg Tablet PO SCH (09:13)
[2018-04-17] MEDS: Ascorbic Acid 500 mg Chewable Tablet PO SCH (09:13)
[2018-04-17] MEDS: Loratadine 10 MG TAB PO SCH (09:14)
[2018-04-17] MEDS: Calcium Carbonate + Vit D 1 TAB PO SCH (09:14)
[2018-04-17] MEDS: Metoprolol Tartrate 25 MG TAB PO SCH (09:14)
[2018-04-17 11:07] VITALS: BP 144/65
--- NOTE | 2018-04-17 12:22 | EKG ---
Test Reason : ROUTINE Blood Pressure : / mmHG Vent. Rate : 075 BPM Atrial Rate : 075 BPM P-R Int : 208 ms QRS Dur : 098 ms QT Int : 428 ms P-R-T Axes : 059 -16 014 degrees QTc Int : 477 ms Atrial-paced rhythm Cannot rule out Anterior infarct , age undetermined Abnormal ECG When compared with ECG of 16-APR-2018 11:51, Minimal criteria for Anterior infarct are now Present Confirmed by BRENDA RUSSELL, SSamaria (4) on 04/17/2018 12:21:56 PM Referred By: [facility] Confirmed By:DR. Olamide GUTIERREZ MD
--- NOTE | 2018-04-17 12:30 | EKG ---
Test Reason : Blood Pressure : / mmHG Vent. Rate : 075 BPM Atrial Rate : 075 BPM P-R Int : 202 ms QRS Dur : 090 ms QT Int : 432 ms P-R-T Axes : 000 -14 007 degrees QTc Int : 482 ms Electronic atrial pacemaker When compared with ECG of 17-APR-2018 07:22, (Unconfirmed) No significant change was found Confirmed by BRENDA RUSSELL, SSamaria (4) on 04/17/2018 12:30:18 PM Referred By: [facility] Confirmed By:DR. Olamide GUTIERREZ MD
--- NOTE | 2018-04-20 09:40 | DIS ---
DATE OF ADMISSION: 04/17/2018 DATE OF DISCHARGE: 04/17/2018 SURGEON: Mariusz Bermudez MD DIAGNOSES: Paroxysmal atrial fibrillation, sinus node dysfunction, tachy-abimbola syndrome, near syncope and collapse. PROCEDURES PERFORMED: Comprehensive 3D mapping electrophysiology study with radiofrequency ablation for atrial fibrillation and dual-chamber pacemaker implantation. SUBJECTIVE: Ms. Fleming is a very pleasant 77-year-old woman with a prior history of hypertension and high cholesterol, who was noted to have atrial fibrillation during a hospitalization in January. At that point, she spontaneously converted back to sinus rhythm and was placed on Eliquis and flecainide in addition to metoprolol. She subsequently had near syncopal spells and monitor showed up to a 5-second pause. Her negative chronotropic agents were discontinued as was flecainide, which was contributing to her sinus node dysfunction. Ultimately, opting for pulmonary venous isolation in an attempt to eliminate future atrial arrhythmias and in the hopes of avoiding pacemaker. She underwent PVAI on 04/13/2018. At that time, she received a total of 30 minutes of RF energy delivered at 40 delgadillo. She was inducible for atrial fibrillation as well as for typical atrial flutter with atypical atrial flutter circuit seen as well. There was successful pulmonary venous isolation and posterior wall isolation performed. Additional lesions were placed at the basal left atria of the CS roof. Cavotricuspid isthmus ablation was performed. She had an abnormal sinus node recovery time with an SNRT of 500 milliseconds. She had normal AV laura and His-Purkinje function. There was no evidence of accessory pathway with LV pacing. Recommendation was for continued anticoagulation and for monitoring for arrhythmias and consider a pacemaker if symptomatic bradycardic arrhythmias occur. She was doing well postablation, but unfortunately began having palpitations postablation around midnight and was placed on a diltiazem drip. She had a conversion pause of nearly 8 seconds, in which she was near syncopal, but did not completely pass out. She had a clear presentation for tachy-abimbola syndrome with sinus node dysfunction worsened by necessary medical treatment for tachyarrhythmias and it was decided to move forward with a dual-chamber pacemaker implantation to avoid future bradycardic issues and she was also started on Tikosyn for arrhythmia suppression during her ablation recovery. Her baseline QTc was 440 milliseconds. On Tikosyn 250 mcg b.i.d., her QTc is stable at 466 milliseconds. Ms. Fleming is feeling well today. She is not having any cardiac concerns or complaints. Her only complaint today is she is having some mild tenderness at the pacemaker implant site where there is minimal bruising and no significant swelling. She also has chronic knee pain, which she feels has somewhat worsened since she has been mostly resting for this week. REVIEW OF SYSTEMS: Negative for heart racing, palpitations, chest pain, pressure, syncope, near syncope, stroke, or stroke-like symptoms. Tolerating p.o. intake. She is voiding normally. OBJECTIVE: VITAL SIGNS: Temperature 98.3, pulse 75, blood pressure is 135/60, respirations 16, and oxygen is 94% on room air. GENERAL: The patient is alert and oriented. Speech is clear. Affect is appropriate. NECK: Supple without jugular venous distention. LUNGS: Clear to auscultation bilaterally. HEART: Heart rate is regularly regular without murmur, rub, or gallop. CHEST: Incision to the left infraclavicular fossa is seen from the newly placed dual-chamber pacemaker. There is very mild bruising noted immediately surrounding the incision, but edges are well approximated without any oozing or drainage present. There is very minimal swelling present. PELVIC: Bilateral groin sites from her ablation are stable and do not show any signs of hematoma or bleeding complication. ABDOMEN: Hepatojugular reflux is negative. NEUROLOGIC: Grossly intact and nonfocal and her gait is stable. DIAGNOSTIC STUDIES: Telemetry and EKG, all reflect sinus rhythm. Baseline QTc 440 milliseconds. QTc on 04/17/2018 and 12-lead EKG 466 milliseconds. DISCHARGE INSTRUCTIONS: She is provided with Keflex post pacemaker implant to be taken for 7 days. She will also have the normal postablation discharge instructions of no lifting more than 5 to 10 pounds for 1 week. No soaking baths for 1 week. Contact [facility] with any postablation questions. Monitor for signs of fluid overload. She has p.r.n. Lasix at home that she may take for any sudden weight gain, shortness of breath, or swelling of the extremities. She is currently on omeprazole and was given a prescription for sucralfate for one additional week as she has been on this for the past week in the hospital. HOME MEDICATIONS: Resuming home medications as previously taken. She will monitor her blood pressure at home. If the systolic blood pressure drops below 110 mmHg, she is not to take her lisinopril/hydrochlorothiazide combination medication. Prescription was also sent in for Tikosyn 250 mcg p.o. b.i.d. to be continued during her postablation recovery course. Home medications include: 1. Simvastatin 20 mg q.p.m. 2. Potassium 99 mg daily. 3. Omeprazole 20 mg daily. 4. Metoprolol tartrate 25 mg b.i.d. 5. Magnesium 500 mg daily. 6. Loratadine 10 mg daily. 7. Lisinopril/hydrochlorothiazide 20/25 half tab daily. 8. Calcium with vitamin D p.o. b.i.d. 9. Ascorbic acid daily. 10. Apixaban 5 mg b.i.d. 11. Amlodipine 5 mg daily. 12. Acetaminophen 2 mg as directed. 13. Furosemide one tab as directed. 14. CoQ10 200 mg daily. New prescriptions; sucralfate 1 g p.o. q.6 x28 doses, Dofetilide 0.25 mg p.o. b.i.d., and cephalexin 500 mg p.o. q.6 x7 days were electronically submitted. CONDITION AT DISCHARGE: Stable. Job ID: [id number]
[2018-04-20] MEDS ORDERED: Iopamidol 370 76% 50 ML VIAL FS ONE (16:55)
== END 2018-04-17 13:04 | disposition home or self-care (01) | DRG 244 ==
LOC: CCL 05:44 → 2SW 14:16 → OBSVTOIN 04-17 11:05
PROVIDERS: ADMIT Internal Medicine Cardiovascular Disease; ATTEND Internal Medicine Cardiovascular Disease
PROC: 02583ZZ Destruction of Conduction Mechanism, Percutaneous Approach (ICD-10-PCS; principal; 2018-04-17)
PROC: 0JH606Z Insertion of Pacemaker, Dual Chamber into Chest Subcutaneous Tissue and Fascia, Open Approach (ICD-10-PCS; 2018-04-17)
PROC: 02HK3JZ Insertion of Pacemaker Lead into Right Ventricle, Percutaneous Approach (ICD-10-PCS; 2018-04-17)
PROC: 02H63JZ Insertion of Pacemaker Lead into Right Atrium, Percutaneous Approach (ICD-10-PCS; 2018-04-17)
PROC: 02K83ZZ Map Conduction Mechanism, Percutaneous Approach (ICD-10-PCS; 2018-04-17)
PROC: 4A023FZ Measurement of Cardiac Rhythm, Percutaneous Approach (ICD-10-PCS; 2018-04-17)
PROC: 4A0234Z Measurement of Cardiac Electrical Activity, Percutaneous Approach (ICD-10-PCS; 2018-04-17)
DX: I48.0 Paroxysmal atrial fibrillation (principal); I49.5 Sick sinus syndrome; I48.3 Typical atrial flutter; R55 Syncope and collapse; I10 Essential (primary) hypertension; E78.00 Pure hypercholesterolemia, unspecified; Z79.01 Long term (current) use of anticoagulants
CPT/HCPCS: 33208; 36005; 36415; 71045; 75820; 76942; 80048; 82565; 85014; 85018; 85025; 85049; 85347; 85610; 85730; 92960; 93005; 93010; 93306; 93613; 93623; 93655; 93656; 93662; 93798; 99152; 99153; C1730; C1731; C1732; C1759; C1769; C1785; C1898; J0690; J1644; J2001; J2250; J2405; J2704; J2720; J3010; J3490; J7050; J8499

== ENCOUNTER 2018-05-04 02:37 | Inpatient (IN) | payer MEDICARE ==
[2018-05-04] MEDS ORDERED: Adenosine 6 MG/2 ML VIAL ONE (03:03)
[2018-05-04] MEDS ORDERED: Metoprolol Tartrate 5 MG/5 ML VIAL ONE ×3 (03:32→04:21)
[2018-05-04 03:33] LABS: #Eosinphils 0.1 thou/uL (0.0-0.7); #Lymphocytes 2.3 thou/uL (1.20-3.40); #Monocytes 0.8 thou/uL (0.11-0.59); #Neutrophils 4.7 thou/uL (1.40-6.50); %Basophils 0.4 % (0.0-1.0); %Eosinophils 1.5 % (0.0-10.0); %Lymphocytes 28.4 % (21.0-51.0); %Monocytes 10.3 % (0.0-10.0); %Neutrophils 59.5 % (42.0-75.0); Hemoglobin 12.8 g/dL (12.0-16.0); Mean Corpuscular HGB CONC 32.9 g/dL (32.0-36.0); Mean Corpuscular Hemoglobin 35.6 pg (27.0-31.0); Mean Platelet Volume 8.1 fL (7.4-10.4); Platelet Count 264 thou/uL (130-400); RBC Distribution Width 12.2 % (11.5-14.5); Red Blood Cell (RBC) Count 3.59 mill/uL (4.20-5.40); White Blood Cell (WBC) Count 7.9 thou/uL (4.8-10.8)
[2018-05-04 03:54] LABS: ALT (SGPT) 20 U/L (8-55); AST (SGOT) 27 U/L (5-34); Albumin 3.7 g/dL (3.4-4.8); Alkaline Phosphatase 63 U/L (40-150); Anion Gap 18 mmol/L (10-20); BUN (Urea Nitrogen) 16 mg/dL (9.8-20.1); Bilirubin, Total 0.2 mg/dL (0.2-1.2); CK (CPK) 45 U/L (29-168); Calc. Creatinine Clearance 0 mL/min (70-130); Calcium 10.7 mg/dL (7.8-10.44); Carbon Dioxide 21 mmol/L (23-31); Chloride 105 mmol/L (98-107); Estimated GFR-MDRD 74; Globulin 4.1 g/dL (2.4-3.5); Glucose 118 mg/dL (83-110); Magnesium 1.8 mg/dL (1.6-2.6); Potassium 3.9 mmol/L (3.5-5.1); Protein, Total 7.8 g/dL (6.0-8.3); Sodium 140 mmol/L (136-145)
[2018-05-04] MEDS ORDERED: Esmolol 2,500 MG/250 ML 250 ML IVPB SCH (05:45)
[2018-05-04] MEDS ORDERED: Esmolol 100 MG/10 ML VIAL IVP SCH (05:45)
[2018-05-04] MEDS ORDERED: Acetaminophen 325 MG TAB PO PRN (07:45)
[2018-05-04] MEDS ORDERED: Zolpidem Tartrate 5 MG TAB PO PRN (07:45)
[2018-05-04] MEDS ORDERED: Ondansetron ODT 4 MG TAB PO PRN (07:45)
--- NOTE | 2018-05-04 08:09 | RAD ---
SINGLE VIEW CHEST: Date: 05/04/18 COMPARISON: 02/28/18. HISTORY: Atrial fibrillation and chest pain. FINDINGS: Single view of the chest shows normal sized cardiomediastinal silhouette with atherosclerotic calcifi cations in the aorta. There is a pacemaker with its leads in the right atrium and ventricle. Increase d interstitial markings are present. There is no evidence of consolidation, mass, or pleural effusion . IMPRESSION: No evidence of acute cardiopulmonary disease. POS: [facility]
--- NOTE | 2018-05-04 08:23 | HP ---
PRIMARY CARE PROVIDER: Kesha Scott MD. HISTORY OF PRESENT ILLNESS: The patient is post recent ablation and biventricular pacemaker, who presents with heart pounding. She noted about 1 o'clock that she had a pulse of 150. She took an extra metoprolol. She stated she was lightheaded and wobbly, but had no shortness of breath. No chest pain. No sweats. PAST MEDICAL HISTORY: Pertinent for atrial fibrillation first noted in January of 2018. She has been hospitalized 3 times with it. Most recently, she was in [place], discharged 04/17/2018 after radiofrequency ablation and pacemaker placement. She also has hypertension, dyslipidemia. CURRENT MEDICATIONS: Reviewed. 1. Lisinopril and hydrochlorothiazide 20/25 half tablet once a day. 2. Zocor 20 mg a day. 3. Metoprolol 25 mg twice a day. 4. Omeprazole 20 mg a day. 5. Eliquis 5 mg twice a day. 6. Furosemide 20 mg a day p.r.n. 7. Tikosyn 250 mcg daily and [id number] supplements. ALLERGIES: SHE HAS NO KNOWN DRUG ALLERGIES. PAST SURGICAL HISTORY: None other than the above mentioned ablation and pacemaker placement. SOCIAL HISTORY: . at bedside. Full code status. Next of kin for decision making. No tobacco, alcohol, or illicit drug use. FAMILY HISTORY: No family history of coronary artery disease or arrhythmias. REVIEW OF SYSTEMS: GENERAL: She has had the aforementioned lightheadedness, but no fainting, no fever, no chills. VISION: No double vision, blurred vision, or flashing lights. EARS, NOSE, AND THROAT: No ear pain or drainage. No nasal bleeding. No trouble swallowing. No dental pain. CARDIAC: No pressure, chest pain. No tightness in her chest. No dyspnea on exertion. No paroxysmal nocturnal dyspnea. No orthopnea. RESPIRATORY: No history of asthma or cough. GASTROINTESTINAL: She had some nausea riding over here in the ambulance, she noted that it was a very rough ride. No vomiting. No abdominal pain, diarrhea, or melena. GENITOURINARY: No hematuria or dysuria. MUSCULOSKELETAL: No pain in her joints or muscles. No swelling. NEUROLOGICAL: No stroke, seizures, or focal weakness. PSYCHIATRIC: No anxiety or depression. SKIN: Despite being on Eliquis, she has had no bruises, bleeding. HEME/LYMPH: No tender or swollen lymph nodes in the axilla, inguinal, or cervical area. No history of any petechial rash, etc. PHYSICAL EXAMINATION: GENERAL: She is alert, pleasant, cooperative lady, in no acute distress. VITAL SIGNS: Her blood pressure has been as high as 189/139, currently she was 186/96. She has had blood pressures as low as in the 130 to 140 systolics. She is on IV esmolol drip. HEAD, EYES, EARS, NOSE, AND THROAT: Revealed pupils are equal, round, and reactive. Extraocular movements are intact. Sclerae are white. Tympanic membranes are clear. Nose is clear. Oral mucous membranes are wet. Dental hygiene is good. NECK: No jugular venous distention, adenopathy, or thyromegaly. CHEST: Clear to auscultation and percussion in all garcia. HEART: Hyperdynamic, tachycardic. First and second heart sounds are consistent. There are no murmurs, no gallops. ABDOMEN: Soft. Bowel sounds are normal. There is no hepatosplenomegaly. No masses. No rebound. No bruits. EXTREMITIES: Reveal no cyanosis, clubbing, or edema. Pulses; carotid, radial, femoral, and dorsalis pedis pulses intact. Brisk and symmetric. SKIN: Warm and dry without bruises or rash. HEME/LYMPH: No tender or swollen lymph nodes in the axilla inguinal, or cervical area. She had no petechial hemorrhages on mucous membranes or nail beds. NEUROLOGICAL: Cranial nerves 2 through 12 are intact. Deep tendon reflexes symmetric. Sensations intact. DIAGNOSTIC DATA: EKG reviewed by myself revealed a supraventricular tachycardia at approximately [address]-T abnormality. Chest x-ray reviewed by myself reveals no cardiomegaly, no CHF, no infiltrate. Pacemaker in the left upper chest. LABORATORY DATA: CBC; white count 7.9, hemoglobin 12.8, platelet count 264,000. Cardiac enzymes normal x2. BNP 150. Comprehensive metabolic profile reveals a CO2 of 21, calcium of 10.7, blood sugar of 118, otherwise normal. ADMITTING DIAGNOSES: 1. Supraventricular tachycardia refractory to therapy. 2. Hypertensive urgency. 3. Post radiofrequency ablation for atrial fibrillation, post biventricular pacemaker, chronic anticoagulation, dyslipidemia. PLAN: The patient will be moved to [facility]. Dr. Bermudez and Dr. Reilly will be contacted as soon as possible for consultation. Job ID: [id number]
--- NOTE | 2018-05-04 08:48 | CT ---
PRELIMINARY REPORT/[facility]/EMERGENTY AFTER-HOURS PROCEDURE CT Angiography Chest With Contrast EXAM DATE/TIME: 05/04/2018 4:41 AM CLINICAL HISTORY: 77 years old, female; Signs and symptoms; Dyspnea; Patient HX: F77 presents to ed for afib/rvr. PT wo ke around midnight with palpitations, feeling lightheaded. Hx- afib, pacemaker placed apr 15, ablat ion on apr 13; Additional info: PT unable to raise lt arm above her head to due recent pacemaker placement TECHNIQUE: Axial computed tomographic angiography images of the chest with intravenous contrast using CT angiogr aphy protocol. MIP reconstructed images were created and reviewed. COMPARISON: No relevant prior studies available. FINDINGS: Tubes, catheters and devices: A pacemaker device is present, and its leads are in appropriate positio n. Pulmonary arteries: There is no evidence of peripheral filling defects within the pulmonary arterial circulation to suggest pulmonary embolism. Aorta: Normal. No aortic aneurysm. No aortic dissection. Lungs: Normal. No consolidation. No masses. Pleural space: Normal. No pneumothorax. No pleural effusion. Heart: Normal. No cardiomegaly. No pericardial effusion. Gallbladder and bile ducts: Multiple calcified gallstones are present. Lymph nodes: Unremarkable. No enlarged lymph nodes. Bones/joints: There is age-indeterminate compression fracture at T11, probably chronic. Soft tissues: Unremarkable. IMPRESSION: 1. There is no CT evidence of acute pulmonary embolism. 2. There is age-indeterminate compression fracture at T11, probably chronic. Correlate with clinical history and physical exam. Thank you for allowing us to participate in the care of your patient. Dictated and Authenticated by: Real Joyce MD 05/04/2018 5:21 AM Central Time ([place] & [place]) FINAL REPORT EMERGENCY AFTER HOURS CTA OF THE CHEST WITH CONTRAST: Date: 05/04/18 TECHNIQUE: Multiple contiguous axial images were obtained in a CTA of the chest with contrast per pulmonary embo lism protocol. 3D oblique MIP reformats and direct coronal reformats were performed. FINDINGS/IMPRESSION: I agree with the findings and impression given in the preliminary report per [facility] physician. 1. No evidence of pulmonary thromboembolism. 2. Cholelithiasis. POS: [facility]
[2018-05-04] MEDS ORDERED: Dofetilide 0.125 MG CAP PO SCH (09:00)
[2018-05-04] MEDS ORDERED: Apixaban 5 MG TAB PO SCH (09:00)
[2018-05-04 09:09] VITALS: BMI 25.9
[2018-05-04 09:48] VITALS: BP 154/85
--- NOTE | 2018-05-04 10:38 | PDOC.PULCN ---
Pulmonology Consult: HPI - Date of Consult Date: 05/04/18 Time: 10:00 - Consult Details Reason for Consult: tachycardia, htn urgency Requesting Physician: sagar - History of Present Illness HPI: ROBERTO SORIA is a 77 year-old F who had an ablation and pacemaker placement 3 weeks ago, d/c'd on 04/17/18. The patient states that last night about midnight she could feel her heart "pounding." She checked her pulse at home and it was 150 so she decided to come into the ED. In the ED she was found to have bp 180/45 and pulse 146. EKG showed supraventricular tachycardia. The patient denies sob, fevers, chills, sweats, or cough. She denies diarrhea or blood in the stool. Denies nausea/vomiting. Denies leg pain or swelling. Pulmonology Consult: ROS - Review of Systems All systems: reviewed and no additional remarkable complaints except as stated Constitutional: negative: fever, chills, sweats Cardiovascular: palpitations. negative: chest pain, orthopnea, edema, light headedness Respiratory: negative: cough, productive cough, short of breath, wheezing Pulmonology Consult: [facility] Source: patient Past Medical History: atrial fibrillation HTN HLD GERD - Family History Family history: reviewed and not pertinent - Social History Smoking Status: Never smoker Alcohol Use: none Drug Use History: none Living Situation: independent Pulmonology Consult: Meds - Medications MAR Reviewed: Yes Medications: Current Medications Acetaminophen (Tylenol) 650 mg PO Q4H PRN PRN Reason: Headache/Fever/Mild Pain (1-3) Apixaban (Eliquis) 5 mg PO BID COUNT INCLUDES THE [facility] Last Admin: 05/04/18 10:26 Dose: 5 mg Dofetilide (Tikosyn) 0.25 mg PO BID COUNT INCLUDES THE [facility] Last Admin: 05/04/18 10:26 Dose: 0.25 mg Esmolol HCl/Sodium Chloride (Brevibloc Rtu) 250 mls @ 0 mls/hr IVPB INF SILVIO; Protocol Last Admin: 05/04/18 10:25 Dose: 250 mls Ondansetron HCl (Zofran Odt) 4 mg PO Q6H PRN PRN Reason: Nausea/Vomiting Sodium Chloride (Flush - Normal Saline) 10 ml IVF Q12HR SILVIO Sodium Chloride (Flush - Normal Saline) 10 ml IVF PRN PRN PRN Reason: Saline Flush Zolpidem Tartrate (Ambien) 5 mg PO HSPRN PRN PRN Reason: Insomnia - Allergies Allergies/Adverse Reactions: Allergies Allergy/AdvReac Type Severity Reaction Status Date / Time adhesive Allergy "takes my Verified 04/13/18 20:03 skin off" Pulmonology Consult: PE - Physical Exam Constitutional: NAD HEENT: PERRLA, moist MMs Neck: no nodes, full ROM Cardiovascular: RRR, no significant murmur Respiratory: clear to auscultation anteriorly, clear to auscultation bilaterally. negative: decreased breath sounds, respiratory distress Gastrointestinal: soft, non-tender, no distention, positive bowel sounds Musculoskeletal: no edema, pulses present Neurological: non-focal, moves all 4 limbs Psychiatric: normal affect, A&O x 3 Skin: no rash, cap refill <2 seconds Pulmonology Consult: Results - Labs Result Diagrams: 05/04/18 03:24 05/04/18 03:24 Pulmonology Consult: A/P - Problem (1) Hypertensive urgency Current Visit: Yes Code(s): I16.0 - HYPERTENSIVE URGENCY Status: Acute (2) Atrial fibrillation with RVR Current Visit: No Code(s): I48.91 - UNSPECIFIED ATRIAL FIBRILLATION Status: Acute - Time Time: 50% of the time was spent in coordination of care (as documented) at patient's floor/unit and/or counseling patient. - Plan Plan: 77 yo F admitted w/ supraventricular tachycardia, htn urgency 3 weeks s/p ablation/pacemaker # Supraventricular tachycardia - pacemaker re-programmed by Dr. Uriarte this AM - increased metoprolol to 50mg - ok to go home and f/u in 3 weeks w/ Dr. Bermudez per Dr. Uriarte - no in regular paced rhythm in 70s, asx - d/c'd esmolol drip # HTN urgency - restarted home meds - will monitor throughout the day - anticipate d/c this pm - trop 0.01-> 0.022 - BNP 150 PPx: eliquis Dispo: anticipate d/c this PM
[2018-05-04] MEDS ORDERED: ISOVUE-370 76%-LOCM 1 ML ONE (10:55)
[2018-05-04] MEDS ORDERED: Lisinopril/Hydrochlorothiazide 20/25 mg Tablet PO SCH (14:00)
--- NOTE | 2018-05-04 14:32 | CON ---
DATE OF CONSULTATION: HISTORY OF PRESENT ILLNESS: Ms. Fleming is a very pleasant 77-year-old lady, who was by her report diagnosed with atrial fibrillation in January. She ultimately was seen by Dr. Bermudez, who took her in for invasive electrophysiologic study and ablation of atrial fibrillation within the last 6 weeks. She was noted to have profound sinus node dysfunction and symptomatic bradycardia and she had a dual-chamber Medtronic Orrum pacemaker placed around that time as well. She has done reasonably well postablation. Last night, she developed a sense of tachycardia or heart pounding in her chest. She described it as being tight and not feeling comfortable. She ultimately elected to come to the hospital for further evaluation and was admitted through the emergency room with a narrow complex tachycardia with a rate of 145 beats per minute. She had no michaelle orthopnea or paroxysmal nocturnal dyspnea. She denied anginal type chest pain. She had no near syncope or syncope. She was placed on an esmolol drip and felt more comfortable subsequently. This morning, I am asked to see her by Dr. Reilly. She is on oral anticoagulation with Eliquis. She reports good diligence with that medication without having missed any recent doses and she is also on Tikosyn 250 mcg twice daily for atrial rhythm control. PAST MEDICAL HISTORY: Notable for history of hypertension, she has no significant lung disease. FAMILY HISTORY: Negative for idiopathic cardiomyopathy, sudden cardiac . SOCIAL HISTORY: No current tobacco, alcohol, or illicit drug use. SYSTEMS REVIEW: No fever, chills, or night sweats. No change in vision or hearing. No TIA, stroke, paresthesia, dysarthria, dysphasia. No recent cough or upper respiratory infection, wheezing, or asthma. Denies claudication. Denies melena or hematochezia. No frequency or dysuria. No significant arthritis or arthralgia. No rashes. No skin cancer. No depression or anxiety. No other autoimmune disease. PHYSICAL EXAMINATION: GENERAL: She is a well-developed and well-nourished lady, in no acute distress. VITAL SIGNS: Heart rate was approximately 140, blood pressure in the 145/90 range, respiratory rate is 14, saturations 97%. HEENT: She is normocephalic and atraumatic. Pupils are equally round and reactive. Extraocular muscles are intact. Sclerae anicteric. Conjunctivae clear. Mucous membranes pink and moist. Dentition adequate. NECK: Supple. There is no jugular venous distension. Carotids have good upstroke. No adenopathy or thyromegaly. CHEST: Clear. Respiratory effort is normal. CARDIAC: Pacemaker is located in the left infraclavicular fossa and is well healed. She has a regular tachycardia without heaves and rubs. MUSCULOSKELETAL: No significant kyphoscoliosis. ABDOMEN: Soft, benign, and nontender. No organomegaly. Bowel sounds are present. The abdominal aorta is not palpable. EXTREMITIES: Femoral pulses are 2+ and symmetric. Dorsalis pedis and posterior tibialis and radial pulses are symmetric. Skin is warm and dry. No clubbing, cyanosis, or edema. LABORATORY DATA: EKG today reveals a regular rhythm around 145 beats per minute, appears to be 1:1 tachycardia. However, 2:1 atypical flutter cannot be fully excluded. Pacemaker was interrogated today. The device was placed on April 15, 2018, it was Medtronic Orrum. On the initial interrogation of device, it appears that she is in 1:1 either atrial tachycardia or atypical atrial flutter with intact conduction. The onset of arrhythmia last night shows a similar cycle length. A full interrogation and assessment of leads were performed. Impedances and thresholds in both atrium and ventricle appeared to be stable. Sensing is good and the atrial tachycardia pacing was performed. This resulted in the induction of numerous atypical atrial flutter of various cycle length, but ultimately successful antitachycardia pace termination was able to be achieved and she was restored back to an atrially paced rhythm with intrinsic ventricular conduction, evident sinus node dysfunction is clearly at present. Her EKG demonstrates no significant QT prolongation. The Tikosyn dose appears to be appropriate from that standpoint. IMPRESSION: Atrial tachycardia/slow atypical atrial flutter with 1:1 conduction seen postablation. No evidence of atrial fibrillation is seen. This is highly encouraging that we have not seen any atrial fibrillation. At a minimum, a pulmonary vein antral isolation has been performed successfully without reconnection evidence at this point. The typical atrial flutter rhythm can be an inflammatory substrate following ablation and are known to potentially extinguish themselves given a longer period of time, that can be generally up to 3 months of postablation, sometimes a little longer. The permanent pacemaker demonstrating normal function. Antitachycardia pacing functions are enabled on the device. At this point, the leads appear to be stable. I would recommend that we increase her metoprolol to 50 mg b.i.d. It appears her blood pressure is sterilely robust enough to be able to tolerate it. She does have antibradycardia pacing available on her device. She is on Tikosyn, and I think that is the reasonable for the time being that help quiet these arrhythmias. The patient was instructed that she has recurring episodes that potentially she can take an extra dose of metoprolol. A large dose was instructed to her to be 100 mg twice a day and that she can call the office and attempted antitachycardia pace termination can be performed there without potentially requiring the emergency room; however, she feels very poorly, has chest pain with some other issues of course, that would require emergency room evaluation potentially. The patient was discussed with Dr. Reilly today as well. Initially I had recommended before seeing the patient that a cardioversion could be performed, but being that she was antitachycardia pace terminated through a device, no further interventions required for the time being. Job ID: [id number]
--- NOTE | 2018-05-04 15:31 | CON ---
DATE OF CONSULTATION: HISTORY OF PRESENT ILLNESS: The patient is a 77-year-old woman with a history of atrial fibrillation, who presented with rapid palpitations. The patient has a history of hypertension and atrial fibrillation. She recently underwent a radiofrequency ablation for atrial fibrillation. The patient developed marked bradycardia and had placement of electronic pacemaker. The patient was started on Tikosyn. The patient was in her usual state of health when she developed acute onset of rapid palpitations. She was noted in the emergency room to have her rapid heart rate and started on esmolol. The patient felt extremely weak and dizzy. She denied having any chest discomfort. PAST MEDICAL HISTORY: 1. Atrial fibrillation. 2. Hypertension. 3. Dyslipidemia. PAST SURGICAL HISTORY: She has had hysterectomy and skin surgery. SOCIAL HISTORY: Nonsmoker. ALLERGIES: NO KNOWN DRUG ALLERGIES. MEDICATIONS: Include; 1. Tikosyn 0.25 mg p.o. b.i.d. 2. Eliquis 5 b.i.d. 3. Lisinopril-HCTZ half a tablet daily. 4. Lopressor 25 b.i.d. 5. Magnesium 500 daily. 6. Zocor 20 at bedtime. 7. Potassium 99 mEq daily. PHYSICAL EXAMINATION: GENERAL: Well-developed woman, in no acute distress. VITAL SIGNS: Blood pressure 146/77. NECK: No jugular venous distention. LUNGS: Clear to auscultation. HEART: Regular rate and rhythm. Normal S1 and S2. No murmurs. ABDOMEN: Nondistended. EXTREMITIES: Showed no edema. LABORATORY DATA: Sodium 140, potassium 3.9, chloride 105, bicarbonate 21, BUN 16, creatinine 0.76, glucose 118. Troponin less than 0.01. Her EKG revealed atrial fibrillation with a rapid ventricular response. IMPRESSION: 1. Recurrent atrial fibrillation. 2. History of pacemaker placement. 3. Hypertension. This patient developed rapid atrial fibrillation. I have recommended electrocardioversion. I have scheduled her to undergo this procedure. I will also consult EP to see if they have recommendations or plan on overdrive pacing. PLAN: 1. Increase Lopressor to 50 b.i.d. 2. Restart Tikosyn and Eliquis. 3. Possible electrocardioversion. 4. EP consultation. Critical care note time 30 minutes. Job ID: [id number]
[2018-05-04 16:14] VITALS: TEMP 98.1
--- NOTE | 2018-05-04 17:37 | DIS ---
DATE OF ADMISSION: 05/04/2018 DATE OF DISCHARGE: 05/04/2018 PRIMARY CARE PROVIDER: Kesha Scott MD ADMITTING DIAGNOSES: 1. Atrial tachycardia. 2. Hypertensive urgency. 3. Dyslipidemia. 4. Anticoagulation. 5. Status post atrial fibrillation ablation. DISCHARGE MEDICATIONS: 1. Eliquis 5 mg p.o. b.i.d. 2. Tikosyn 0.25 mg b.i.d. 3. Lisinopril/hydrochlorothiazide 20/25 one-half tablet daily. 4. Lasix 20 mg tablet daily p.r.n. 5. Zocor 20 mg a day. 6. Potassium 99 mg a day. 7. Omeprazole 20 mg a day. 8. Coenzyme Q10 of 200 mg a day. 9. Metoprolol 50 mg b.i.d. ALLERGIES: NONE. CODE STATUS: Full. PENDING AT TIME OF DISCHARGE: Nothing. DIET: Heart healthy. HOSPITAL COURSE: The patient admitted out of the ER. She had a rapid rate with an atrial tachycardia at approximately 140 to 150. She did notice profound palpitations. Her blood pressures in the emergency room ranged from 180/145 down to 135/105. She was put on esmolol in the emergency room. Her CBC was essentially normal. Comprehensive metabolic profile showed a calcium of 10.7, glucose 118, and CO2 of 21. Cardiac enzymes were normal. She was seen in consultation by Dr. Jim Uriarte, Electrophysiology and Dr. Gaetano Reilly, Cardiology. During her consultations, Dr. Uriarte, found that she had a 1:1 atrial tachycardia. She was given an extra dose of metoprolol. She has antitachycardia paced terminated through her pacemaker. After that, her blood pressure resumed its normal range. She was without palpitations. She was monitored for several hours and discharged home on her home medicines plus the increased dose of metoprolol. She has been instructed to follow up with EP per Dr. Uriarte as an outpatient. Job ID: [id number]
[2018-05-04] MEDS ORDERED: Metoprolol Tartrate 25 MG TAB PO SCH (21:00)
[2018-05-04] MEDS ORDERED: Metoprolol Tartrate 50 MG TAB PO SCH (21:00)
[2018-05-05] MEDS ORDERED: Lisinopril/Hydrochlorothiazide 20/25 mg Tablet PO SCH (09:00)
== END 2018-05-04 16:33 | disposition home or self-care (01) | DRG 310 ==
LOC: ERS 02:37 → CCU 06:00
PROVIDERS: ADMIT Hospitalist; ATTEND Hospitalist
DX: I47.1 Supraventricular tachycardia (principal); I48.4 Atypical atrial flutter; I16.0 Hypertensive urgency; I10 Essential (primary) hypertension; E78.5 Hyperlipidemia, unspecified; Z79.01 Long term (current) use of anticoagulants; Z79.899 Other long term (current) drug therapy; Z95.0 Presence of cardiac pacemaker
CPT/HCPCS: 36415; 71045; 71275; 80053; 82550; 83735; 83880; 84484; 85025; 93005; 94760; J0153; J8499; Q9966

== ENCOUNTER 2018-08-05 10:20 | Outpatient (CLI) | payer MEDICARE ==
--- NOTE | 2018-08-05 11:11 | MMO ---
Bilateral MAMMO Bilat Screen [facility]. CLINICAL HISTORY: Patient is 77 years old and is seen for screening. The patient has the following family history of breast cancer: mother; daughter and maternal grandmother. The patient has a history of Skin cancer. VIEWS: The views performed were: bilateral craniocaudal with tomosynthesis and bilateral mediolateral oblique with tomosynthesis. FILMS COMPARED: The present examination has been compared to prior imaging studies performed at [facility] on 01/26/2015, 04/12/2016, 04/23/2016 and 08/01/2017. MAMMOGRAM FINDINGS: There are scattered fibroglandular densities. There are stable benign appearing calcifications seen in both breasts. There are no suspicious masses, suspicious calcifications, or new areas of architectural distortion. IMPRESSION: THERE IS NO MAMMOGRAPHIC EVIDENCE OF MALIGNANCY. A ROUTINE FOLLOW-UP MAMMOGRAM IN 1 YEAR IS RECOMMENDED. THE RESULTS OF THIS EXAM WERE SENT TO THE PATIENT. ACR BI-RADS Category 2 - Benign finding MAMMOGRAPHY NOTE: 1. A negative mammogram report should not delay a biopsy if a dominant of clinically suspicious mass is present. 2. Approximately 10% to 15% of breast cancers are not detected by mammography. 3. Adenosis and dense breasts may obscure an underlying neoplasm.
== END 2018-08-05 10:21 | disposition home or self-care (01) ==
LOC: BICMAMMO 10:20
PROVIDERS: ATTEND Obstetrics & Gynecology
DX: Z12.31 Encounter for screening mammogram for malignant neoplasm of breast (principal); Z80.3 Family history of malignant neoplasm of breast; Z85.828 Personal history of other malignant neoplasm of skin
CPT/HCPCS: 77063; 77067

== ENCOUNTER 2019-07-22 05:49 | Outpatient (CLI) | payer MEDICARE, OTHER ==
[2019-07-22 13:37] LABS: Hemoglobin 13.2 g/dL (12.0-16.0); Mean Corpuscular HGB CONC 33.7 g/dL (32.0-36.0); Mean Corpuscular Hemoglobin 36.6 pg (27.0-31.0); Mean Platelet Volume 8.9 fL (7.4-10.4); Platelet Count 241 thou/uL (130-400); RBC Distribution Width 12.3 % (11.5-14.5); Red Blood Cell (RBC) Count 3.61 mill/uL (4.20-5.40); White Blood Cell (WBC) Count 7.4 thou/uL (4.8-10.8)
[2019-07-22 13:54] LABS: ALT (SGPT) 13 U/L (8-55); AST (SGOT) 24 U/L (5-34); Albumin 4.1 g/dL (3.4-4.8); Alkaline Phosphatase 64 U/L (40-110); Anion Gap 16 mmol/L (10-20); BUN (Urea Nitrogen) 17 mg/dL (9.8-20.1); Bilirubin, Total 0.5 mg/dL (0.2-1.2); Calc. Creatinine Clearance 0 mL/min (70-130); Calcium 11.2 mg/dL (7.8-10.44); Carbon Dioxide 28 mmol/L (23-31); Cardiac Risk 4.7 (Less than 4.5); Chloride 99 mmol/L (98-107); Cholesterol 216 mg/dl (< 200 Desired); Estimated GFR-MDRD 61; Globulin 3.9 g/dL (2.4-3.5); Glucose 94 mg/dL (83-110); HDL Cholesterol 46 mg/dL (>60 Neg Risk); LDL Cholesterol, Calculated 140 mg/dL; Potassium 3.6 mmol/L (3.5-5.1); Sodium 139 mmol/L (136-145); Triglycerides 152 mg/dL (Less than 150)
[2019-07-22 14:00] LABS: INR-International Normal Ratio 1.2; PTT 36.9 SEC (22.9-36.1); Prothrombin Time 15.3 sec (12.0-14.7)
[2019-07-22 17:18] LABS: SARS-CoV-2 MS2 Positive; SARS-CoV-2 N Gene Negative; SARS-CoV-2 S Gene Negative; SARS-CoV-2 orf1ab Negative
== END 2019-07-22 05:50 | disposition home or self-care (01) ==
LOC: LABBT 05:49
PROVIDERS: ATTEND Internal Medicine Cardiovascular Disease
DX: Z01.812 Encounter for preprocedural laboratory examination (principal); Z11.59 Encounter for screening for other viral diseases; I48.91 Unspecified atrial fibrillation
CPT/HCPCS: 80053; 80061; 85027; 85610; 85730; U0002; 87635; U0003

== ENCOUNTER 2019-07-26 08:02 | Observation (INO) | payer MEDICARE ==
[2019-07-22 11:14] VITALS: BMI 26.4
[2019-07-26] MEDS ORDERED: Heparin 25,000 units/D5W 500 ML ONE (09:38)
[2019-07-26] MEDS ORDERED: Heparin 10,000 UNITS/1 ML VIAL ONE ×2 (09:38→12:34)
[2019-07-26] MEDS ORDERED: Midazolam HCl 2 mg/2 ml Vial ONE (11:22)
[2019-07-26] MEDS ORDERED: Fentanyl 100 MCG/2 ML VIAL ONE ×2 (11:22→17:08)
[2019-07-26] MEDS ORDERED: Famotidine/PF 20 mg/2ml Vial ONE (11:22)
[2019-07-26] MEDS ORDERED: Ondansetron PF 4 MG/2 ML Vial ONE (11:25)
[2019-07-26] MEDS ORDERED: Dexamethasone 20 MG/5 ML VIAL ONE (11:25)
[2019-07-26] MEDS ORDERED: Lidocaine 1% PF 5 ML VIAL ONE (11:25)
[2019-07-26] MEDS ORDERED: PROPOFOL 200 MG/20 ML VIAL ONE (11:25)
[2019-07-26] MEDS ORDERED: Rocuronium Bromide 10 MG/ML (10ML VIAL) ONE (11:25)
[2019-07-26] MEDS ORDERED: Metoclopramide HCl 10 MG/2 ML VIAL ONE (11:25)
[2019-07-26] MEDS ORDERED: Isoproterenol 0.2 MG/1 ML AMP ONE (14:06)
--- NOTE | 2019-07-26 16:09 | EKG ---
Test Reason : PREOP Blood Pressure : / mmHG Vent. Rate : 076 BPM Atrial Rate : 076 BPM P-R Int : 228 ms QRS Dur : 094 ms QT Int : 408 ms P-R-T Axes : 000 004 018 degrees QTc Int : 459 ms Electronic atrial pacemaker When compared with ECG of 04-MAY-2018 02:50, Electronic atrial pacemaker has replaced Sinus rhythm Vent. rate has decreased BY 69 BPM Confirmed by BRENDA RUSSELL, SSamaria (4) on 07/26/2019 4:08:46 PM Referred By: [facility] Confirmed By:DR. Olamide GUTIERREZ MD
[2019-07-26] MEDS ORDERED: Ondansetron HCl/PF 4 MG/2 ML Vial IVP PRN (16:54)
[2019-07-26] MEDS ORDERED: Promethazine HCl 25 MG/ML VIAL IM PRN (16:54)
[2019-07-26] MEDS ORDERED: Promethazine HCl 25 MG/ML VIAL SLOW IVP PRN (16:54)
[2019-07-26] MEDS ORDERED: Protamine Sulfate 50 MG/5 ML VIAL ONE (17:08)
[2019-07-26] MEDS ORDERED: Ketorolac Tromethamine 30 MG/ML VIAL IVP PRN (20:06)
[2019-07-26] MEDS ORDERED: Acetaminophen ER (8hr) 650 MG TAB PO PRN (20:08)
[2019-07-26] MEDS ORDERED: Atorvastatin Calcium 10 MG TAB PO SCH (21:00)
[2019-07-26] MEDS ORDERED: GLUCOSAMINE CHONDROITIN COMPLEX PO SCH (21:00)
[2019-07-26] MEDS: Apixaban 5 MG TAB PO SCH (22:04)
[2019-07-26] MEDS: Calcium Carbonate 600 MG + Vit D TAB PO SCH (22:04)
[2019-07-26] MEDS: Metoprolol Tartrate 25 MG TAB PO SCH (22:04)
[2019-07-27 03:38] VITALS: TEMP 97.9
--- NOTE | 2019-07-27 07:19 | OP ---
DATE OF PROCEDURE: 07/26/2019 PROCEDURES PERFORMED: Electrophysiology study and radiofrequency ablation. REASON FOR PROCEDURE: Ms. Fleming is a 78-year-old lady with history of paroxysmal atrial fibrillation. She underwent a pulmonary venous isolation procedure on April 05, 2018. Atrial tachycardia noted post PVI response with ATP therapy for pacemaker, later recurrences are seen and flecainide was initiated. She is here for a redo ablation. DESCRIPTION OF PROCEDURE: The patient received general anesthesia by Anesthesia specialist. The right and left femoral venous areas were prepped, draped, and anesthetized with subcutaneous lidocaine. After adequate level of sedation achieved, the left and right femoral vein was cannulated x2 under ultrasound guidance. On the left side, an 11-Sami sheath was used to advance the intracardiac echocardiogram probe to the right atrium, which was used to monitor the pericardial space catheter manipulation, as well as the transseptal puncture. On the left femoral vein, a Preface sheath was used to advance a duo-Deca catheter to the right atrium and CS positions. On the right femoral vein, two 8-Sami short sheaths were introduced through which a ThermoCool SFST catheter was advanced to the right atrium and 3D map of the right atrium was obtained. Careful attention was paid to the pre-existing pacemaker leads to avoid dislodgement. At this point, IV heparin was administered in a bolus and drip fashion which was created to recheck ACT and adjust it to keep ACT levels over 350. Following that, burst atrial pacing induced a slow atrial tachycardia/atypical flutter at 360 milliseconds cycle length. This was on occasions after The CS activation was initially not typical appearing. The overdrive pacing and mapping attempts were hampered by poor capture in multiple locations. At this point, transseptal punctures were performed using two SL1 sheaths for the right femoral vein with a powered Managed by Q catheter. Through the SL1 sheaths, a 20-pole Lasso catheter and a ThermoCool SFST catheter advanced to the left atrium. 3D map of the left atrium was constructed and scar map was performed. All 4 pulmonary veins as well as posterior wall were well isolated from prior procedure. There was additional activation in the right venous sisi area was noted, which was re-ablated. Additional lesions were placed in the inferior wallover thew cs roof, intra atrial septum and also in the anterior roof close to the right superior pulmonary vein. These maneuvers have changed the cycle length of the original flutter nad the morphology changed into a into a typical appearing left atrial flutter. Following that, the catheter was moved to the right side and cavotricuspid isthmus ablation was performed. We were able to prolong the transisthmus time to 160 milliseconds with the CR pole activation pattern and also the longus transisthmus time was measured by the ablation line suggestive of transisthmus block. At this point, Isuprel was administered and the pulmonary veins and posterior wall were again rechecked and no conduction reconnections were seen. No significant PACs were noted from nonpulmonary venous foci. During isuprel burst atrial pacing was again reattempted and we were able to induce an atrial flutter, which was eventually cardioverted to sinus rhythm. At the end of the case, cardiac silhouette did not change significantly and also the pericardial space by intracardiac echo did not change. The long sheaths were exchanged for short sheaths. The IV heparin was stopped and reversed with protamine, and the pacemaker function was rechecked. The femoral venous sites were closed with Vascade closure under ultrasound guidance. Total ablation olivia was 23 min @ 40 W. The patient tolerated the procedure well. CONCLUSION: 1. Adequate isolation of the pulmonary veins and posterior wall is seen from prior ablation. 2. Atypical left atrial flutter was also noted with termination in the anterior roof area close to the right pulmonary vein. 3. Typical isthmus dependent atrial flutter was seen and cavotricuspid isthmus ablation was performed. 4.On isuprel residual atrial fibrillation/atypical atrial flutter is seen, which was not consistent with the presenting arrhythmia. PLAN: Resume anticoagulation and/or flecainide. Monitor for recurrent arrhythmias. Monitor routine pacemaker function. Job ID: [id number] [facility]
[2019-07-27 08:47] VITALS: BP 141/69
[2019-07-27] MEDS: Metoprolol Tartrate 25 MG TAB PO SCH (08:48)
[2019-07-27] MEDS: Apixaban 5 MG TAB PO SCH (08:49)
[2019-07-27] MEDS: Calcium Carbonate 600 MG + Vit D TAB PO SCH (08:49)
[2019-07-27] MEDS ORDERED: Furosemide 20 MG TAB PO SCH (09:00)
[2019-07-27] MEDS ORDERED: POTASSIUM 99 MG TAB PO SCH (09:00)
[2019-07-27] MEDS ORDERED: Stress 600 With Zinc 1 TAB PO SCH (09:00)
[2019-07-27] MEDS ORDERED: Lisinopril/Hydrochlorothiazide 10 mg/12.5 mg Tablet PO SCH (09:00)
[2019-07-27] MEDS ORDERED: Fish Oil 1,000 MG CAP PO SCH (09:00)
[2019-07-27] MEDS ORDERED: Magnesium Oxide 250 MG TAB PO SCH (09:00)
[2019-07-27] MEDS ORDERED: Loratadine 10 MG TAB PO SCH (09:00)
[2019-07-27] MEDS ORDERED: Ubidecarenone 50 MG CAP PO SCH (09:00)
[2019-07-27] MEDS ORDERED: ESTER C 1000 MG PO SCH (09:00)
--- NOTE | 2019-07-27 16:30 | DIS ---
DATE OF ADMISSION: 07/26/2019 DATE OF DISCHARGE: 07/27/2019 DIAGNOSIS: Atrial fibrillation. PROCEDURES PERFORMED: Include three dimensional mapping, electrophysiology ,and radiofrequency ablation for atrial fibrillation. HISTORY OF PRESENT ILLNESS: Ms. Fleming is a pleasant 78-year-old woman with a history of recurrent atrial arrhythmias. She also has a dual-chamber Medtronic pacemaker in place that has been used to pace terminate her atrial arrhythmias. However, her atrial tachycardia is relatively slow at 100 or below detect rate for her atrial ATPs. She has previously required flecainide for arrhythmia suppression. She was taken to the EP lab for electrophysiology study. It was seen that her four pulmonary veins remained isolated from a prior ablation. She had an atypical atrial flutter mapped to the left anterior roof close to the right pulmonary vein that was ablated. She was inducible for typical isthmus dependent atrial flutter. A cavotricuspid isthmus ablation was performed. On Isuprel, there is residual atrial fibrillation/atrial flutter. Atypical atrial flutter seen, which was not consistent with presenting arrhythmia. No complications. Total ablation time was 23 minutes. SUBJECTIVE: Ms. Fleming feels well. She has not had any heart racing, palpitations, chest pain, pressure, syncope, near syncope, stroke, stroke-like symptoms, bleeding at the groin site, or difficulty urinating after her procedure yesterday. She is feeling well and eager to discharge home. OBJECTIVE: VITAL SIGNS: Temperature 97.9, pulse 76, blood pressure 141/69, respirations 16, and oxygen 96% on room air. GENERAL: The patient is alert and oriented. Speech is clear. She is in no apparent distress. HEART: Rate is irregularly irregular with crisp S1 and S2. LUNGS: Clear to auscultation throughout. ABDOMEN: Soft and nontender. Hepatojugular reflux is negative. Groin sites are stable bilaterally with no hematoma or bleeding complications evident. EXTREMITIES: Peripheral pulses are strong. There is no edema in her extremities neurologic exam is grossly intact and nonfocal. Gait was steady, ambulating throughout the ivey. DATABASE: Telemetry and EKG shows sinus rhythm. CONDITION AT DISCHARGE: Stable. DISCHARGE MEDICATIONS: Include; 1. Vitamin D daily. 2. Eliquis 5 mg b.i.d. 3. Tylenol as needed. 4. Zyrtec 10 mg daily. 5. Calcium with vitamin D b.i.d. 6. Prinzide 1 tablet daily. 7. Glucosamine complex b.i.d. 8. Zocor 20 mg at bedtime. 9. Potassium 99 mg daily. 10. Omeprazole 20 mg daily. 11. Metoprolol tartrate 75 mg b.i.d. 12. Magnesium 500 mg daily. 13. CoQ10 daily. New prescriptions provided for; 1. Sucralfate 1 g p.o. q.i.d. x2 weeks. 2. Protonix 40 mg daily x30 days. 3. Lasix is taken at home. She may take 40 mg daily p.o. p.r.n. edema with her home potassium dose. DISCHARGE INSTRUCTION: Refer to [facility] postablation packet and contact [facility] office with any concerns, returning in 6 weeks or sooner if symptoms dictate. Job ID: [id number] [facility]
--- NOTE | 2019-07-27 20:11 | EKG ---
Test Reason : Blood Pressure : / mmHG Vent. Rate : 077 BPM Atrial Rate : 078 BPM P-R Int : 232 ms QRS Dur : 102 ms QT Int : 456 ms P-R-T Axes : 070 016 -08 degrees QTc Int : 516 ms Atrial-paced rhythm with prolonged AV conduction T wave abnormality, consider anterior ischemia Prolonged QT Abnormal ECG When compared with ECG of 26-JUL-2019 08:35, T wave inversion now evident in Anterior leads QT has lengthened Confirmed by BRENDA RUSSELL, SSamaria (4) on 07/27/2019 8:10:54 PM Referred By: [facility] Confirmed By:DR. Olamide GUTIERREZ MD
--- NOTE | 2019-07-27 20:19 | EKG ---
Test Reason : Blood Pressure : / mmHG Vent. Rate : 075 BPM Atrial Rate : 075 BPM P-R Int : 232 ms QRS Dur : 092 ms QT Int : 424 ms P-R-T Axes : 000 001 006 degrees QTc Int : 473 ms Electronic atrial pacemaker When compared with ECG of 26-JUL-2019 16:57, (Unconfirmed) T wave inversion no longer evident in Anterior leads Confirmed by BRENDA RUSSELL, DR. Quiñonez (4) on 07/27/2019 8:19:18 PM Referred By: [facility] Confirmed By:DR. Olamide GUTIERREZ MD
== END 2019-07-27 10:20 | disposition home or self-care (01) ==
LOC: CCL 08:02 → 2NO 11:30
PROVIDERS: ADMIT Internal Medicine Cardiovascular Disease; ATTEND Internal Medicine Cardiovascular Disease
PROC: 4A023FZ Measurement of Cardiac Rhythm, Percutaneous Approach (ICD-10-PCS; principal; 2019-07-26)
PROC: 4A0234Z Measurement of Cardiac Electrical Activity, Percutaneous Approach (ICD-10-PCS; 2019-07-26)
PROC: 02583ZZ Destruction of Conduction Mechanism, Percutaneous Approach (ICD-10-PCS; 2019-07-26)
DX: I48.0 Paroxysmal atrial fibrillation (principal); I48.4 Atypical atrial flutter; Z79.01 Long term (current) use of anticoagulants; Z79.899 Other long term (current) drug therapy; Z88.0 Allergy status to penicillin; Z91.048 Other nonmedicinal substance allergy status; Z88.1 Allergy status to other antibiotic agents
CPT/HCPCS: 36005; 75820; 76942; 85347 ×2; 93005 ×3; 93613; 93622; 93623; 93655; 93662; C1731; C1732 ×3; C1759; C1769; G0378 ×2; 93010; J1100; J1644; J2001; J2250; J2405; J2704; J2720; J2765; J3010; S0028

== ENCOUNTER 2019-08-16 | Outpatient (CLI) | payer MEDICARE | END 2019-08-16 13:22 | disposition home or self-care (01) | DX: Z12.31 Encounter for screening mammogram for malignant neoplasm of breast (principal); Z85.828 Personal history of other malignant neoplasm of skin; Z80.3 Family history of malignant neoplasm of breast ==

== ENCOUNTER 2019-11-24 15:00 | Inpatient (IN) | payer MEDICARE, OTHER ==
[2019-11-24] MEDS ORDERED: Furosemide 40 MG/4 ML VIAL ONE (15:55)
[2019-11-24] MEDS ORDERED: Aspirin Chewable 81 MG TAB ONE ×2 (15:55→15:56)
[2019-11-24] MEDS ORDERED: Nitroglycerin 2% Ointment 1 INCH/1 GM Packet ONE (15:56)
[2019-11-24 16:49] LABS: CKMB 2.4 ng/mL (0-6.6)
[2019-11-24] MEDS ORDERED: Potassium Chloride 20 MEQ TAB PO SCH (18:15)
[2019-11-24 19:45] LABS: Troponin I 0.035 ng/mL (< 0.028)
[2019-11-24] MEDS: Apixaban 5 MG TAB PO SCH (20:49)
[2019-11-24] MEDS: Atorvastatin Calcium 10 MG TAB PO SCH (20:49)
--- NOTE | 2019-11-24 20:49 | HP ---
CHIEF COMPLAINT: Shortness of breath. HISTORY OF PRESENT ILLNESS: The patient is a very pleasant 78-year-old female, with a history of atrial fibrillation and hypertension, who presents to the hospital with complaints of shortness of breath x1 day. The patient states that she for the past few days have been noticing her heart rate being in the 130s. She is a Dr. Bermudez's patient and has had extensive issues with rate control. She has had two ablations and also has a pacemaker. She stated that she saw Dr. Bermudez on Friday and her rate was adjusted in her pacemaker. Her flecainide was also increased from 75 mg twice a day to 100 mg twice a day. She stated that the last night around 8 p.m., she took her flecainide and at 10:30, she started being very short of breath. She stated that she was unable to sleep all night. She felt fullness in her abdomen area. Denied any chest pressure or any fevers or chills. She stated that she came into the ER for further evaluation. She initially presented to [facility] and then was transferred here. PAST MEDICAL HISTORY: She has a history of atrial fibrillation. History of pulmonary hypertension, this is per documentation. Hypertension and hyperlipidemia. PAST SURGICAL HISTORY: She has had a pacemaker placed and she has had couple ablations. ALLERGIES: SHE HAS NO KNOWN DRUG ALLERGIES. MEDICATIONS: 1. She is on flecainide 100 mg twice a day. 2. She is on lisinopril and hydrochlorothiazide 1 p.o. daily. 3. She is also on Eliquis 5 mg twice a day. FAMILY HISTORY: No history of heart disease or strokes. REVIEW OF SYSTEMS: All negative except for the ones mentioned above in the HPI. PHYSICAL EXAMINATION: VITAL SIGNS: As of the following; temperature 97.9, heart rate 78, respiratory rate 16, 96% on room air, and blood pressure 141/69. GENERAL: She is awake, alert, and oriented x3. Does not appear in distress. CV: S1 and S2 present. No murmurs, rubs, or gallops. ABDOMEN: Soft and nontender. Bowel sounds are present x2. EXTREMITIES: Mild lower extremity 1+ edema. NEUROVASCULAR: No focal deficits noted. SKIN: No cuts, lesions, or bruises noted. LABORATORY RESULTS: As of the following; her WBCs of 14.5, hemoglobin of 12.4, hematocrit of 38.7, and her platelets are 384. Chemistry; sodium of 140, potassium of 3.9, BUN of 20, and creatinine 0.99. Her lactic was mildly elevated at 2.5. Her calcium was 10.5. Her BNP was 327. Her troponin initially was negative. TSH was normal. She did have a chest x-ray, which appear to be volume overloaded upon my interpretation. ASSESSMENT AND PLAN: The patient is a very pleasant 78-year-old female, who presents to the hospital with shortness of breath. 1. Shortness of breath, most likely from acute on chronic diastolic heart failure, most likely secondary to her atrial fibrillation since she has uncontrolled rate. I believe that is probably what caused her to be mildly volume overload. She got Lasix in the ER. We will continue the Lasix. We will get EP to see her. I spoke with EP. Given her prolonged QTc on the EKG, we will hold the flecainide for tonight and re-evaluate her in the morning. We will get a repeat EKG in the morning. We will continue her Eliquis for tonight. 2. Mildly elevated leukocytosis. The patient did get antibiotics in the ER. However, I do not think she has any acute infectious etiology. 3. Hypercalcemia. Upon reviewing her chart, she has had significant hypercalcemia throughout her previous hospital stay. We will get a vitamin D and a PTH and will go from there. 4. Deep venous thrombosis prophylaxis. The patient is already on Eliquis. Job ID: [id number]
[2019-11-24] MEDS: Acetaminophen 325 MG TAB PO PRN (20:50)
[2019-11-24] MEDS ORDERED: Metoprolol Tartrate 50 MG TAB PO SCH (21:00)
[2019-11-24 22:41] VITALS: BMI 27.8
[2019-11-25 05:02] LABS: #Eosinphils 0.1 thou/uL (0.0-0.7); #Lymphocytes 1.5 thou/uL (1.20-3.40); #Monocytes 0.7 thou/uL (0.11-0.59); #Neutrophils 5.6 thou/uL (1.40-6.50); %Basophils 0.4 % (0.0-1.0); %Eosinophils 1.7 % (0.0-10.0); %Lymphocytes 18.9 % (21.0-51.0); %Monocytes 9.2 % (0.0-10.0); %Neutrophils 69.8 % (42.0-75.0); Hemoglobin 11.1 g/dL (12.0-16.0); Mean Corpuscular HGB CONC 32.7 g/dL (32.0-36.0); Mean Corpuscular Hemoglobin 35.8 pg (27.0-31.0); Mean Platelet Volume 9.2 fL (7.4-10.4); Platelet Count 210 thou/uL (130-400); RBC Distribution Width 12.2 % (11.5-14.5); Red Blood Cell (RBC) Count 3.11 mill/uL (4.20-5.40)
[2019-11-25 05:13] LABS: Anion Gap 16 mmol/L (10-20); BUN (Urea Nitrogen) 22 mg/dL (9.8-20.1); Calc. Creatinine Clearance 66 mL/min (70-130); Calcium 10.1 mg/dL (7.8-10.44); Carbon Dioxide 25 mmol/L (23-31); Chloride 105 mmol/L (98-107); Estimated GFR-MDRD 63; Glucose 102 mg/dL (83-110); Potassium 3.8 mmol/L (3.5-5.1); Sodium 142 mmol/L (136-145)
[2019-11-25] MEDS ORDERED: Magnesium 2 GM/50 ML 2 GM in Premix Bag 1 BAG IVPB SCH (07:45)
[2019-11-25] MEDS: Apixaban 5 MG TAB PO SCH ×2 (08:50→20:42)
[2019-11-25] MEDS: Magnesium Oxide 250 MG TAB PO SCH (08:50)
[2019-11-25] MEDS: Stress 600 With Zinc 1 TAB PO SCH (08:50)
[2019-11-25] MEDS: Calcium Carbonate 600 MG + Vit D TAB PO SCH ×2 (08:51→20:42)
[2019-11-25] MEDS: Metoprolol Tartrate 50 MG TAB PO SCH ×2 (08:51→20:42)
[2019-11-25] MEDS ORDERED: Furosemide 40 MG/4 ML VIAL SLOW IVP SCH (09:00)
[2019-11-25] MEDS ORDERED: Enoxaparin Sodium 40 MG/0.4 ML SYRINGE SC SCH (09:00)
[2019-11-25] MEDS: Acetaminophen 325 MG TAB PO PRN ×2 (10:01→20:42)
[2019-11-25 12:30] LABS: SARS-CoV-2 MS2 Positive; SARS-CoV-2 N Gene Negative; SARS-CoV-2 S Gene Negative; SARS-CoV-2 by NAA Not Detected (NotDetected); SARS-CoV-2 orf1ab Negative
--- NOTE | 2019-11-25 14:47 | PDOC.HOSPP ---
- Subjective Encounter Date: 11/25/19 Encounter Time: 10:00 Subjective: pt up in bed no complains - Objective Vital Signs & Weight: Vital Signs (12 hours) Temp Pulse Resp BP Pulse Ox 11/25/19 12:00 98.3 F 79 18 113/62 11/25/19 08:00 97.9 F 78 18 134/60 11/25/19 04:30 97.4 F L 79 16 102/54 L 94 L Weight Weight 167 lb 8.821 oz I&O: 11/24/19 11/25/19 11/26/19 06:59 06:59 06:59 Intake Total 240 Output Total 300 Balance -60 Result Diagrams: 11/25/19 04:39 11/25/19 04:39 Hospitalist ROS - Review of Systems Cardiovascular: denies: chest pain, palpitations, orthopnea, paroxysmal noc. dyspnea, edema, light headedness, other Gastrointestinal: denies: nausea, vomiting, abdominal pain, diarrhea, constipation, melena, hematochezia, other Genitourinary: denies: dysuria, frequency, incontinence, hematuria, retention, other - Medication Medications: Active Medications Generic Name Dose Route Start Last Admin Trade Name Freq PRN Reason Stop Dose Admin Acetaminophen 650 mg 11/24/19 15:52 11/25/19 10:01 Tylenol PO 650 mg Q4H PRN Administration Headache/Fever/Mild Pain (1-3) Apixaban 5 mg 11/24/19 21:00 11/25/19 08:50 Eliquis PO 5 mg BID SILVIO Administration Atorvastatin Calcium 10 mg 11/24/19 21:00 11/24/19 20:49 Lipitor PO 10 mg HS SILVIO Administration Calcium/Vitamin D 1 tab 11/25/19 09:00 11/25/19 08:51 Caltrate 600 + Vit D PO 1 tab BID SILVIO Administration Furosemide 40 mg 11/25/19 09:00 11/25/19 08:50 Lasix SLOW IVP 40 mg DAILY SILVIO Administration Magnesium Oxide 500 mg 11/25/19 09:00 11/25/19 08:50 Magnesium Oxide PO 500 mg DAILY SILVIO Administration Metoprolol Tartrate 50 mg 11/25/19 09:00 11/25/19 08:51 Lopressor PO 50 mg BID SILVIO Administration Multivitamins/Zinc 1 tab 11/25/19 09:00 11/25/19 08:50 Stress 600 With Zinc PO 1 tab DAILY SILVIO Administration Pantoprazole Sodium 40 mg 11/25/19 09:00 11/25/19 08:50 Protonix PO 40 mg DAILY SILVIO Administration - Exam Neck: negative: supple, symmetric, no JVD, no thyromegaly, no lymphadenopathy, no carotid bruit, JVD Heart: negative: RRR, no murmur, no gallops, no rubs, normal peripheral pulses, irregular, diminshed peripheral pulses, murmur present, II/IV, III/IV Respiratory: negative: CTAB, no wheezes, no rales, no ronchi, normal chest expansion, no tachypnea, normal percussion, rales, rhonchi, tachypneic, wheezes Hosp A/P (1) Elevated troponin Code(s): R79.89 - OTHER SPECIFIED ABNORMAL FINDINGS OF BLOOD CHEMISTRY Status : Acute (2) Atrial fibrillation with RVR Code(s): I48.91 - UNSPECIFIED ATRIAL FIBRILLATION Status: Acute (3) Chronic anticoagulation Code(s): Z79.01 - PENITENTIARY (CURRENT) USE OF ANTICOAGULANTS Status: Acute (4) Dyslipidemia Code(s): E78.5 - HYPERLIPIDEMIA, UNSPECIFIED Status: Acute - Plan will change lasix to oral. cardiology consulted. pt's flecanide has been decreased.
--- NOTE | 2019-11-25 15:17 | CON ---
DATE OF CONSULTATION: HISTORY OF PRESENT ILLNESS: The patient is a 78-year-old woman, who presented with increasing dyspnea. The patient was seen in January 2018 with new-onset atrial tachycardia. She underwent an EP evaluation. The patient underwent electrical cardioversion. The patient was subsequently placed on flecainide. She was seen in April of 2018 again with rapid atrial fibrillation. The patient was placed on Tikosyn. She subsequently has been followed primarily by EP. She has undergone placement of an electronic ventricular pacemaker. The patient previously underwent a PET scan in February of 2018, which revealed normal left ventricular ejection fraction with no evidence of ischemia. The patient has been on flecainide. The dose was increased when she noticed having increasing dyspnea. She also has been treated for bronchitis and has been on azithromycin. The patient presented with increasing dyspnea. She denied having any chest discomfort. The patient denied having any fevers or chills. She just presented with increasing dyspnea. PAST MEDICAL HISTORY: 1. Atrial hypertension. 2. Dyslipidemia. 3. Osteoporosis. 4. GE reflux. PAST SURGICAL HISTORY: None. SOCIAL HISTORY: Nonsmoker. ALLERGIES: ADHESIVE TAPE, PENICILLIN, CEFDINIR. FAMILY HISTORY: Positive family history of heart disease. Sister had coronary artery disease. MEDICATIONS: 1. Metoprolol 50 b.i.d. 2. Flecainide 100 b.i.d. 3. Prilosec 20 daily. 4. Prinzide one tablet daily. 5. Zyrtec 10 daily. 6. Lasix 40 daily. 7. Eliquis 5 b.i.d. 8. Zocor 20 at bedtime. REVIEW OF SYSTEMS: Ten-point system otherwise unremarkable. No history of easy bruising or bleeding. PHYSICAL EXAMINATION: GENERAL: Well-developed woman, in no acute distress. VITAL SIGNS: Blood pressure 113/62. NECK: No jugular venous distention. LUNGS: Clear to auscultation. HEART: Regular rate and rhythm. Normal S1 and S2. No murmurs. ABDOMEN: Nondistended. EXTREMITIES: Showed no edema. VASCULAR: Radial pulses are 2+. LABORATORY RESULTS: Troponin is 0.04. Sodium 142, potassium 3.8, chloride 105, bicarbonate 25, BUN 22, creatinine 0.87, glucose is 63. White blood cell count 8.0, hemoglobin 11.1, hematocrit 34.1, and her platelets are 210. EKG revealed ab electronic pacemaker with a markedly prolonged ST-T wave abnormality suggestive of ischemia with a prolonged QT interval. IMPRESSION: 1. Congestive heart failure. 2. Atrial fibrillation. 3. Hypertension. 4. Dyslipidemia. 5. Prolonged QT interval. 6. History of pacemaker placement. PLAN: This patient presented with congestive heart failure. She was diuresed with IV Lasix. This has developed previously when she is on high dose of flecainide. The dose of this medication has been decreased. From a cardiac standpoint, she needs to avoid prolonged QT interval medications such as antibiotics and high-dose flecainide. The patient will undergo outpatient stress testing. We will follow this patient with you through her hospitalization. Job ID: [id number]
[2019-11-25] MEDS: Atorvastatin Calcium 10 MG TAB PO SCH (20:42)
--- NOTE | 2019-11-25 23:45 | EKG ---
Test Reason : Blood Pressure : / mmHG Vent. Rate : 076 BPM Atrial Rate : 076 BPM P-R Int : 258 ms QRS Dur : 104 ms QT Int : 462 ms P-R-T Axes : 036 -04 069 degrees QTc Int : 519 ms Electronic atrial pacemaker Prolonged QT Abnormal ECG When compared with ECG of 24-NOV-2019 16:18, (Unconfirmed) ST no longer depressed in Lateral leads Nonspecific T wave abnormality has replaced inverted T waves in Inferior leads T wave inversion no longer evident in Lateral leads Confirmed by Lul ENCISO ([id number]) on 11/25/2019 11:45:09 PM Referred By: KERRY Confirmed By:Lul ENCISO
[2019-11-26] MEDS ORDERED: Furosemide 40 MG TAB PO SCH (07:30)
[2019-11-26] MEDS: Apixaban 5 MG TAB PO SCH (08:49)
[2019-11-26] MEDS: Stress 600 With Zinc 1 TAB PO SCH (08:49)
[2019-11-26] MEDS: Calcium Carbonate 600 MG + Vit D TAB PO SCH (08:50)
[2019-11-26] MEDS: Magnesium Oxide 250 MG TAB PO SCH (08:50)
[2019-11-26] MEDS: Metoprolol Tartrate 50 MG TAB PO SCH (08:50)
[2019-11-26] MEDS: Acetaminophen 325 MG TAB PO PRN (08:51)
--- NOTE | 2019-11-26 09:26 | CON ---
DATE OF CONSULTATION: 11/25/2019 HISTORY OF PRESENT ILLNESS: I am seeing Ms. Fleming at our [facility] as an Electrophysiology employee relations consultant for the following problems; 1. Recurrent atrial arrhythmias. a. Paroxysmal atrial fibrillation prompting pulmonary venous isolation procedures on April 05, 2018. b. Recurrent atrial tachycardia 2 weeks post PVI, responds to ATP therapy. c. Status post redo PVI on July 26, 2019. d. Subsequent atrial tachycardia episodes, on flecainide suppression. 2. History of sinus node dysfunction with up to 5.5 second pause at night prompting a dual-chamber pacemaker implantation with a [employer] device. 3. History of pulmonary hypertension. 4. History of negative stress test on 02/19/2018 with LVEF 52%. 5. History of diastolic heart failure with acute exacerbation. 6. Prolonged QT on presentation. ALLERGIES: ADHESIVE, CEFDINIR, PENICILLINS. MEDICATIONS: At home include; 1. Tylenol p.r.n. 2. Apixaban. 3. Calcium. 4. Vitamin D. 5. Zyrtec. 6. Super B-complex. 7. Tambocor 75 mg twice a day just increased to 100 mg twice a day 2 days ago. 8. Lasix. 9. Glucosamine Chondroitin. 10. Magnesium. 11. Lopressor. 12. Dixon-3 fatty acid. 13. Prilosec. 14. Zocor. 15. Coenzyme Q10. 16. Breann-C oral. 17. Zestoretic. SUBJECTIVE: Ms. Fleming is here with progressive dyspnea. She was recently seen in my office due to prolonged atrial tachycardia, which was relatively slow in the 120 to 130 range. Unfortunately, it fell below the pacemaker's atrial tachycardia detection zone. Otherwise, she has been well responsive to atrial over-riding therapy. She came to our office and we over-ride pace terminated the arrhythmia there. Her flecainide was increased from 75 mg to 100 mg twice a day. Since then, she has been progressively more short of breath, eventually came to the ER. In the ER, she was noted to have BNP of 327. An x-ray was suggestive of fluid overload. She was IV diuresed and now she is feeling better. Her rhythm remained stable and atrially paced. Initial EKG does show some ventricular pacing as well. There is some QT prolongation noted. At this point, the patient denies PND or orthopnea. No fever, chills, or cough. No neurological deficit. No stroke-like symptoms. Denies angina-like discomfort, and rest of 12-point system is unremarkable. PAST MEDICAL HISTORY: As above. She also has history of pulmonary hypertension, hyperlipidemia, and atrial arrhythmias. PAST SURGICAL HISTORY: Sinus surgeries and pacemaker implantation in the past. SOCIAL HISTORY: The patient denies smoking, EtOH, or drug abuse. Her sister is a nurse. FAMILY HISTORY: Noncontributory. OBJECTIVE: VITAL SIGNS: Blood pressure is 134/60, heart rate 78, respiratory rate is 18, temperature 97.9 degrees Fahrenheit currently. On admission, her blood pressure was 142/86, heart rate 75. GENERAL: Alert and oriented woman, in no apparent distress. Elevated BMI. NECK: Supple. Jugular veins not distended. CHEST: Coarse without crackles. HEART: Sounds have regular rate and rhythm. No murmur or gallop. Left ventricular pacemaker insertion site is well healed. ABDOMEN: Benign. Bowel sounds are positive. EXTREMITIES: Lower extremities without edema, clubbing, or cyanosis. Pulses are adequate. NEUROLOGIC: The patient is nonfocal. MUSCULOSKELETAL: Without joint swelling or deformity. SKIN: Without rash. DATABASE: EKG is reviewed. Initial EKG revealed again atrially and ventricularly paced rhythm. Subsequent EKGs showed atrially paced rhythm with prolonged QT at 75 beats per minute, QTc is 544 milliseconds. Subsequent EKG this morning is similar with QTc 519 milliseconds. LABORATORY DATA: White blood cell count 8, hemoglobin 11.1, platelet count is 210. Sodium 142, potassium 3.8, BUN is 23, creatinine 0.87. Troponin-I 0.04. BNP was 327. AST and ALT are in normal range of 30 and 25. Telemetry strips revealed no atrial arrhythmias or ventricular arrhythmias. ASSESSMENT AND PLAN: Ms. Fleming is a pleasant 78-year-old woman with prior history of pulmonary hypertension, preserved LVEF, negative stress test, sinus node disease with dual-chamber pacemaker in place, also recurrent atrial arrhythmias requiring repeated ablations and still flecainide suppression, relatively slow atrial tachycardia. Her flecainide has just been increased a couple of days ago to 100 mg twice a day. She seems to have responded well to the IV diuresis. Diastolic heart failure exacerbation is suspected, although she was also given Zithromax by ER. No typical symptoms of bronchitis present at this time. 1. Regarding her diastolic heart failure, continued diuresis recommended. I would recheck echocardiogram to ensure no change in LV systolic function is noted. 2. Recurrent atrial arrhythmias. At this point, I will decrease flecainide as she has a prolonged QT to back to previously well tolerated 50 mg twice a day. We will also reassess pacemaker to evaluate for efficacy of flecainide therapy as well as the potential pacing in the ventricles, which could contribute to diastolic heart failure. We discussed again potential options for repeat ablation. 3. Dual chamber pacing, although has adequate function. 4. Further management of diastolic heart failure and pulmonary hypertension will be referred to Dr. Reilly in or outpatient. 5. Chronic oral anticoagulation with history of elevated CHADS-VASc score due to age and gender, hypertension, heart failure. Job ID: [id number]
[2019-11-26 11:16] VITALS: BP 129/61; TEMP 98.2
[2019-11-26] MEDS: UBIDECARENONE 120 MG PO SCH (17:12)
[2019-11-26] MEDS: Non-Formulary Item 1 EACH (Potassium [Potassium] 99 MG) PO SCH ×2 (17:12→17:13)
--- NOTE | 2019-11-26 18:04 | PRG ---
DATE OF SERVICE: 11/26/2019 SUBJECTIVE: Ms. Fleming seems to be doing well. Denies PND, orthopnea. No palpitations. No dizziness, loss of consciousness. OBJECTIVE: VITAL SIGNS: Blood pressure is 129/61, heart rate 75, respiratory rate is 17, temperature 98.2 degrees Fahrenheit. Oxygen saturation 98%. General: Alert, oriented woman, elevated BMI, in no apparent distress. NECK: Supple. Jugular veins not distended. CHEST: Coarse, no crackles. HEART: Sounds are regular to rate and rhythm, 2/6 holosystolic murmur is heard precordially. Left precordial pacemaker insertion site is well healed. ABDOMEN: Benign. Bowel sounds positive. EXTREMITIES: Lower extremities without edema, clubbing, or cyanosis. Pulses are adequate. NEUROLOGIC: The patient is nonfocal. MUSCULOSKELETAL: Without joint swelling or deformity. SKIN: Without rash. DATABASE: Lab data, none new. Telemetry strips reviewed, revealing atrially paced rhythm. No atrial tachyarrhythmias. EKG is reviewed, revealing atrial paced rhythm, [place] AV conduction. The QTc is reduced to 479 milliseconds. ASSESSMENT AND PLAN: 1. Ms. Fleming is a 78-year-old woman with prior history of recurrent atrial arrhythmias. She underwent repeated ablations, most recently on July 26, 2019. She had residual slow atrial tachycardia, which was difficult to suppress with antiarrhythmic agents. Flecainide has been gradually increased to 100 mg twice a day, but has been held on admission, has prolonged QT interval. QT has been improved and we reduced the flecainide dose maintenance to 50 mg twice a day which she has tolerated well in the past. Her pacemaker was able to pace terminate the arrhythmias in the past. Reprogramming the device to avoid atrial tachyarrhythmias is performed. Currently, no further SVT seen for the last couple of days since last reprogramming. 2. Diastolic heart failure, seems to have improved. A 2D echo evaluated by Dr. Reilly revealed preserved LVEF, but marked biatrial enlargement. The patient was having moderate to severe MR, which likely contributes to her diastolic heart failure. She clearly cannot tolerate atrial arrhythmias. PLAN: At this point, continue flecainide therapy. Should that fail and her renal function remains stable, QTc normalizes, Tikosyn could be a potential option, but with the current QT levels, this is not a good option. Alternatively, amiodarone therapy could be considered or reablation. We reiterated these options. Will follow up with her in the next 6 to 8 weeks. Job ID: [id number]
--- NOTE | 2019-11-27 01:54 | DIS ---
DATE OF ADMISSION: 11/24/2019 DATE OF DISCHARGE: 11/26/2019 DISCHARGE DIAGNOSES: 1. Shortness of breath, most likely secondary to volume overload from her atrial fibrillation. 2. Hypertension. 3. Atrial fibrillation, rate controlled, currently on anticoagulation. 4. Possible shortness of breath from acute on chronic diastolic heart failure. HOSPITAL COURSE: The patient is a 78-year-old female, who initially presented to the hospital with complaints of shortness of breath. A few days prior to that, she was found to be tachycardic, in AFib with RVR and her pacemaker was re-evaluated by her jig operator, Dr. Bermudez. The patient, at this time, was initially brought into the hospital. She was given some IV diuretics. She was also seen by Cardiology and Electrophysiology. She initially was on flecainide 100 mg twice a day, which was then reduced to 50 mg twice a day. She did have some prolonged QTc; however, that improved. The patient now will be discharged to home. She will follow up with her primary and also with Cardiology. She will require a stress test as an outpatient per Cardiology. She had a repeat echocardiogram, which indicated an EF of 55% to 60% with severely dilated left atrium. She had some localized left pericardial effusion DISCHARGE MEDICATIONS: Her home medications will be: 1. Flecainide 50 mg twice a day. 2. Simvastatin 20 mg daily. 3. Eliquis 5 mg twice a day. 4. Lasix 20 mg daily. I have told her to go up on the dose if she feels short of breath or if she feels bloating from the fluid; because this time she was admitted to the hospital, she felt she had some abdominal bloating; she attributes it whenever her heart rate goes up. 5. Magnesium 500 mg daily. 6. Omeprazole 20 mg daily. 7. Metoprolol 50 mg b.i.d. PHYSICAL EXAMINATION: VITAL SIGNS: At discharge, temperature of 98.2, heart rate 75, respiratory rate 17, 98% on room air, blood pressure 129/61. GENERAL: She is awake, alert, and oriented x3. Does not appear in distress. CV: S1, S2 present. No murmurs, rubs, or gallops. DISPOSITION: Again, she will be discharged to home, and she will follow up with Primary and Cardiology. Job ID: [id number]
--- NOTE | 2019-11-27 14:23 | EKG ---
Test Reason : Blood Pressure : / mmHG Vent. Rate : 075 BPM Atrial Rate : 075 BPM P-R Int : 268 ms QRS Dur : 110 ms QT Int : 488 ms P-R-T Axes : 000 -34 -02 degrees QTc Int : 544 ms Atrial-paced rhythm with prolonged AV conduction Left axis deviation Prolonged QT Abnormal ECG Confirmed by BEN RUSSELL, EVAN ([id number]), multimedia editor LAZ SILVA ([id number]) on 11/27/2019 2:22:43 PM Referred By: Confirmed By:EVAN CONTRERAS MD
--- NOTE | 2019-11-28 16:08 | EKG ---
Test Reason : Blood Pressure : / mmHG Vent. Rate : 076 BPM Atrial Rate : 076 BPM P-R Int : 250 ms QRS Dur : 096 ms QT Int : 426 ms P-R-T Axes : 025 -10 062 degrees QTc Int : 479 ms Electronic atrial pacemaker Prolonged QT Abnormal ECG When compared with ECG of 25-NOV-2019 07:16, No significant change was found Confirmed by Lul ENCISO ([id number]) on 11/28/2019 4:08:03 PM Referred By: LORIN Confirmed By:Lul ENCISO
== END 2019-11-26 15:35 | disposition home or self-care (01) | DRG 308 ==
LOC: ERS 15:00 → 2NO 20:12
PROVIDERS: ADMIT Internal Medicine; ATTEND Internal Medicine
PROC: 4B02XSZ Measurement of Cardiac Pacemaker, External Approach (ICD-10-PCS; principal; 2019-11-25)
DX: I48.0 Paroxysmal atrial fibrillation (principal); I50.33 Acute on chronic diastolic (congestive) heart failure; Z20.828 Contact with and (suspected) exposure to other viral communicable diseases; I11.0 Hypertensive heart disease with heart failure; I45.81 Long QT syndrome; I27.20 Pulmonary hypertension, unspecified; D72.829 Elevated white blood cell count, unspecified; E83.52 Hypercalcemia; M81.0 Age-related osteoporosis without current pathological fracture; K21.9 Gastro-esophageal reflux disease without esophagitis; E78.5 Hyperlipidemia, unspecified; Z79.01 Long term (current) use of anticoagulants; Z95.0 Presence of cardiac pacemaker; Z79.899 Other long term (current) drug therapy; Z88.0 Allergy status to penicillin; Z88.8 Allergy status to other drugs, medicaments and biological substances; Z91.048 Other nonmedicinal substance allergy status
CPT/HCPCS: 36415; 80048; 82553; 82565; 83735; 85025; 87635; 93005; 93010; 93306; 96374; 97139; J1940; J3475; U0003

== ENCOUNTER 2020-09-12 13:55 | Outpatient (CLI) | payer MEDICARE | END 2020-09-12 13:56 | disposition home or self-care (01) | LOC: BICMAMMO 13:55 | PROVIDERS: ATTEND Family Medicine | DX: Z12.31 Encounter for screening mammogram for malignant neoplasm of breast (principal); Z80.3 Family history of malignant neoplasm of breast; Z85.828 Personal history of other malignant neoplasm of skin | CPT/HCPCS: 77063; 77067 ==

== ENCOUNTER 2021-01-04 13:57 | Outpatient (CLI) | payer MEDICARE ==
[2021-01-04 15:03] LABS: #Eosinphils 0.1 10x3/uL (0.0-0.5); #Monocytes 0.9 10x3/uL (0.0-1.1); #Neutrophils 4.8 10x3/uL (1.5-8.4); %Basophils 0.2 % (0.0-2.0); %Eosinophils 1.5 % (0.0-6.0); %Lymphocytes 28.4 % (18.0-47.0); %Monocytes 11.4 % (0.0-10.0); %Neutrophils 58.1 % (40.0-75.0); Hemoglobin 9.4 g/dL (12.0-15.5); Mean Corpuscular HGB CONC 32.4 g/dL (32.0-36.0); Mean Corpuscular Hemoglobin 36.4 pg (27.0-33.0); Mean Corpuscular Volume 112.4 fl (81.6-98.3); Mean Platelet Volume 10.8 fl (7.4-10.4); Platelet Count 273 10x3/uL (150-450); Red Blood Cell (RBC) Count 2.58 10x6/uL (3.90-5.03); White Blood Cell (WBC) Count 8.3 10x3/uL (3.5-10.5)
[2021-01-04 15:21] LABS: Anion Gap 18 mmol/L (10-20); BUN (Urea Nitrogen) 23 mg/dL (9.8-20.1); Calc. Creatinine Clearance 0 mL/min (70-130); Calcium 10.5 mg/dL (7.8-10.44); Carbon Dioxide 28 mmol/L (23-31); Chloride 100 mmol/L (98-107); Glucose 97 mg/dL (83-110); Potassium 3.6 mmol/L (3.5-5.1); Sodium 142 mmol/L (136-145)
[2021-01-04 15:33] LABS: Macrocytosis SLIGHT = 6-15 cells (100X) (0-5/hpf); Small Platelets SLIGHT
[2021-01-05 12:08] LABS: SARS-CoV-2 PCR by NAA Not Detected (NotDetected)
== END 2021-01-04 13:58 | disposition home or self-care (01) ==
LOC: LABBT 13:57
PROVIDERS: ATTEND Specialist
DX: Z01.818 Encounter for other preprocedural examination (principal); K64.8 Other hemorrhoids; Z20.822 Contact with and (suspected) exposure to COVID-19
CPT/HCPCS: 80048; 85025; U0003; U0005

== ENCOUNTER 2021-01-09 10:28 | Day surgery (SDC) | payer MEDICARE ==
[2021-01-08 10:20] VITALS: BMI 26.8
[2021-01-09] MEDS ORDERED: Levofloxacin 500 mg/D5W 100 ml Premix Bag ONE (10:53)
[2021-01-09] MEDS ORDERED: Ketorolac Tromethamine 30 MG/ML VIAL ONE (10:53)
[2021-01-09] MEDS ORDERED: Acetaminophen 500 MG TAB ONE (10:53)
[2021-01-09] MEDS ORDERED: Fentanyl 100 MCG/2 ML VIAL ONE (12:14)
[2021-01-09] MEDS ORDERED: Phenylephrine 10 MG/ML VIAL ONE (12:14)
[2021-01-09] MEDS ORDERED: Lidocaine 1% w/Epinephrine 1:100K 20 ML VIAL ONE (12:16)
[2021-01-09] MEDS ORDERED: Bupivacaine 0.25% HCL 30 ML VIAL ONE (12:16)
[2021-01-09] MEDS ORDERED: Dexamethasone 20 MG/5 ML VIAL ONE (12:31)
[2021-01-09] MEDS ORDERED: Rocuronium Bromide 10 MG/ML (10ML VIAL) ONE (12:31)
[2021-01-09] MEDS ORDERED: Ondansetron PF 4 MG/2 ML Vial ONE (12:31)
[2021-01-09] MEDS ORDERED: Lidocaine 1% PF 5 ML VIAL ONE (12:31)
[2021-01-09] MEDS ORDERED: PROPOFOL 200 MG/20 ML VIAL ONE (12:31)
[2021-01-09] MEDS ORDERED: Bacitracin Zinc Ointment 30 gm TUBE ONE (13:00)
[2021-01-09] MEDS ORDERED: SUGAMMADEX SODIUM 200 MG/2 ML VIAL ONE (13:28)
[2021-01-09] MEDS ORDERED: HYDROcodone/Acetaminophen 5/325 mg Tablet ONE (14:46)
== END 2021-01-09 15:40 | disposition home or self-care (01) ==
LOC: SDC 10:28
PROVIDERS: ATTEND Specialist
PROC: 06BY0ZC Excision of Hemorrhoidal Plexus, Open Approach (ICD-10-PCS; principal; 2021-01-09)
DX: K64.8 Other hemorrhoids (principal); I10 Essential (primary) hypertension; E78.00 Pure hypercholesterolemia, unspecified; I48.91 Unspecified atrial fibrillation; I48.92 Unspecified atrial flutter; M81.0 Age-related osteoporosis without current pathological fracture; Z88.0 Allergy status to penicillin; Z88.1 Allergy status to other antibiotic agents; Z91.048 Other nonmedicinal substance allergy status; Z95.0 Presence of cardiac pacemaker; Z90.710 Acquired absence of both cervix and uterus; Z98.890 Other specified postprocedural states; Z79.01 Long term (current) use of anticoagulants; Z79.2 Long term (current) use of antibiotics; Z79.899 Other long term (current) drug therapy
CPT/HCPCS: J1100; J1885; J1956; J2370; J2405; J2704; J3010; S0020

== ENCOUNTER 2021-01-27 18:17 | Inpatient (IN) | payer MEDICARE ==
[2021-01-27 19:34] LABS: #Lymphocytes 1.9 thou/uL (1.20-3.40); #Monocytes 1.1 thou/uL (0.11-0.59); #Neutrophils 6.9 thou/uL (1.40-6.50); %Basophils 0.2 % (0.0-1.0); %Eosinophils 0.5 % (0.0-10.0); %Lymphocytes 18.6 % (21.0-51.0); %Monocytes 10.9 % (0.0-10.0); %Neutrophils 69.8 % (42.0-75.0); Hemoglobin 5.3 g/dL (12.0-16.0); Mean Corpuscular HGB CONC 34.4 g/dL (32.0-36.0); Mean Corpuscular Hemoglobin 37.6 pg (27.0-31.0); Mean Platelet Volume 8.6 fL (7.4-10.4); Platelet Count 250 thou/uL (130-400); RBC Distribution Width 13.3 % (11.5-14.5); Red Blood Cell (RBC) Count 1.41 mill/uL (4.20-5.40); White Blood Cell (WBC) Count 9.9 thou/uL (4.8-10.8)
[2021-01-27 19:42] LABS: INR-International Normal Ratio 1.1; Prothrombin Time 14.1 sec (12.0-14.7)
[2021-01-27 19:47] LABS: ALT (SGPT) 11 U/L (8-55); AST (SGOT) 22 U/L (5-34); Albumin 3.6 g/dL (3.4-4.8); Alkaline Phosphatase 42 U/L (40-110); Anion Gap 15 mmol/L (10-20); BUN (Urea Nitrogen) 20 mg/dL (9.8-20.1); Bilirubin, Total 0.3 mg/dL (0.2-1.2); Calc. Creatinine Clearance 0 mL/min (70-130); Carbon Dioxide 22 mmol/L (23-31); Chloride 105 mmol/L (98-107); Globulin 3.2 g/dL (2.4-3.5); Glucose 125 mg/dL (83-110); Magnesium 1.8 mg/dL (1.6-2.6); Potassium 3.8 mmol/L (3.5-5.1); Protein, Total 6.8 g/dL (5.8-8.1); Sodium 138 mmol/L (136-145)
[2021-01-27 20:03] LABS: Bilirubin Negative (Negative); Blood, Urine Negative (Negative); Clarity Clear (Clear); Glucose, Urine (Dipstick) Normal (Negative); Ketone, Urine Negative (Negative); Leukocyte 75 Leu/uL (Negative); Nitrite Negative (Negative); Protein, Urine (Dipstick) 10 mg/dL (Neg-Trace); RBC/HPF 0-3 HPF (0-3); Specific Gravity, Urine 1.026 (1.002-1.036); Squamous Epithelial 0-3 HPF (0-3); Urobilinogen Normal mg/dL (Less than 2)
[2021-01-27 20:04] LABS: Bacteria/HPF Rare-Few HPF (None Seen)
[2021-01-27] MEDS ORDERED: Pantoprazole 40 MG VIAL ONE (21:35)
[2021-01-27] MEDS ORDERED: Ondansetron PF 4 MG/2 ML Vial IVP PRN (22:54)
[2021-01-27 23:35] VITALS: BMI 27.1
[2021-01-27 23:54] LABS: Iron 369 ug/dL (50-170); Iron Binding Capacity, Total 358 mcg/dL (265-497)
[2021-01-28] MEDS ORDERED: Simethicone Chewable 80 MG TAB PO PRN (03:48)
[2021-01-28] MEDS ORDERED: Metoprolol Tartrate 50 MG TAB PO SCH (04:00)
[2021-01-28 05:24] LABS: #Eosinphils 0.1 thou/uL (0.0-0.7); #Lymphocytes 1.7 thou/uL (1.20-3.40); #Monocytes 0.9 thou/uL (0.11-0.59); %Basophils 0.5 % (0.0-1.0); %Eosinophils 1.2 % (0.0-10.0); %Lymphocytes 19.2 % (21.0-51.0); %Monocytes 10.4 % (0.0-10.0); %Neutrophils 68.7 % (42.0-75.0); Hemoglobin 7.6 g/dL (12.0-16.0); Mean Corpuscular HGB CONC 34.5 g/dL (32.0-36.0); Mean Corpuscular Hemoglobin 34.2 pg (27.0-31.0); Mean Corpuscular Volume 99.3 fL (78.0-98.0); Mean Platelet Volume 8.4 fL (7.4-10.4); Platelet Count 179 thou/uL (130-400); RBC Distribution Width 17.2 % (11.5-14.5); Red Blood Cell (RBC) Count 2.21 mill/uL (4.20-5.40); White Blood Cell (WBC) Count 8.7 thou/uL (4.8-10.8)
[2021-01-28 05:40] LABS: Anion Gap 13 mmol/L (10-20); BUN (Urea Nitrogen) 17 mg/dL (9.8-20.1); Calc. Creatinine Clearance 75 mL/min (70-130); Carbon Dioxide 23 mmol/L (23-31); Chloride 106 mmol/L (98-107); Glucose 100 mg/dL (83-110); Potassium 3.4 mmol/L (3.5-5.1); Sodium 139 mmol/L (136-145)
[2021-01-28] MEDS ORDERED: Potassium Chloride 10 MEQ in Premix Bag 1 BAG IVPB SCH (07:15)
[2021-01-28 08:33] LABS: Magnesium 1.7 mg/dL (1.6-2.6)
[2021-01-28 10:43] LABS: Hemoglobin 8.8 g/dL (12.0-16.0)
[2021-01-28] MEDS: Flecainide 50 MG TAB PO SCH ×2 (10:45→20:22)
[2021-01-28] MEDS: Furosemide 20 MG TAB PO SCH ×2 (10:45→15:30)
[2021-01-28] MEDS: Metoprolol Tartrate 50 MG TAB PO SCH ×2 (10:46→20:23)
[2021-01-28] MEDS ORDERED: GoLYTELY 4,000 ml Bottle PO SCH (12:45)
[2021-01-28 14:28] LABS: SARS-CoV-2 PCR by NAA Not Detected (NotDetected)
[2021-01-28] MEDS: Potassium Chloride 20 MEQ TAB PO SCH ×2 (17:39→20:23)
[2021-01-28] MEDS: Acetaminophen 325 MG TAB PO PRN (20:38)
[2021-01-29 00:47] LABS: Hemoglobin 9.2 g/dL (12.0-16.0)
[2021-01-29] MEDS: Potassium Chloride 20 MEQ TAB PO SCH (06:20)
[2021-01-29] MEDS: Flecainide 50 MG TAB PO SCH ×2 (09:45→20:13)
[2021-01-29] MEDS: Furosemide 20 MG TAB PO SCH (09:45)
[2021-01-29] MEDS: Metoprolol Tartrate 50 MG TAB PO SCH ×2 (09:45→20:12)
[2021-01-29] MEDS ORDERED: PROPOFOL 200 MG/20 ML VIAL ONE (10:15)
[2021-01-29] MEDS: Acetaminophen 325 MG TAB PO PRN ×2 (11:42→20:13)
[2021-01-29 13:35] LABS: #Eosinphils 0.1 thou/uL (0.0-0.7); #Monocytes 0.7 thou/uL (0.11-0.59); #Neutrophils 5.8 thou/uL (1.40-6.50); %Basophils 0.1 % (0.0-1.0); %Eosinophils 1.1 % (0.0-10.0); %Lymphocytes 13.3 % (21.0-51.0); %Monocytes 9.4 % (0.0-10.0); %Neutrophils 76.1 % (42.0-75.0); Hemoglobin 7.3 g/dL (12.0-16.0); Mean Corpuscular HGB CONC 34.7 g/dL (32.0-36.0); Mean Corpuscular Hemoglobin 34.7 pg (27.0-31.0); Mean Corpuscular Volume 99.9 fL (78.0-98.0); Mean Platelet Volume 8.4 fL (7.4-10.4); Platelet Count 182 thou/uL (130-400); RBC Distribution Width 17.8 % (11.5-14.5); Red Blood Cell (RBC) Count 2.09 mill/uL (4.20-5.40); White Blood Cell (WBC) Count 7.7 thou/uL (4.8-10.8)
[2021-01-29 13:57] LABS: Anion Gap 13 mmol/L (10-20); BUN (Urea Nitrogen) 10 mg/dL (9.8-20.1); Calc. Creatinine Clearance 70 mL/min (70-130); Calcium 9.7 mg/dL (7.8-10.44); Carbon Dioxide 25 mmol/L (23-31); Chloride 105 mmol/L (98-107); Glucose 115 mg/dL (83-110); Magnesium 1.5 mg/dL (1.6-2.6); Potassium 3.9 mmol/L (3.5-5.1); Sodium 139 mmol/L (136-145)
[2021-01-30 05:20] LABS: #Eosinphils 0.2 thou/uL (0.0-0.7); #Lymphocytes 1.3 thou/uL (1.20-3.40); #Monocytes 0.7 thou/uL (0.11-0.59); #Neutrophils 5.6 thou/uL (1.40-6.50); %Basophils 0.6 % (0.0-1.0); %Eosinophils 2.4 % (0.0-10.0); %Lymphocytes 16.1 % (21.0-51.0); %Monocytes 9.4 % (0.0-10.0); %Neutrophils 71.5 % (42.0-75.0); Hemoglobin 7.7 g/dL (12.0-16.0); Mean Corpuscular HGB CONC 34.7 g/dL (32.0-36.0); Mean Corpuscular Hemoglobin 35.7 pg (27.0-31.0); Mean Platelet Volume 8.5 fL (7.4-10.4); Platelet Count 168 thou/uL (130-400); RBC Distribution Width 18.7 % (11.5-14.5); Red Blood Cell (RBC) Count 2.15 mill/uL (4.20-5.40); White Blood Cell (WBC) Count 7.9 thou/uL (4.8-10.8)
[2021-01-30 05:38] LABS: Anion Gap 14 mmol/L (10-20); BUN (Urea Nitrogen) 5 mg/dL (9.8-20.1); Calc. Creatinine Clearance 73 mL/min (70-130); Calcium 9.6 mg/dL (7.8-10.44); Carbon Dioxide 22 mmol/L (23-31); Chloride 107 mmol/L (98-107); Glucose 91 mg/dL (83-110); Magnesium 1.6 mg/dL (1.6-2.6); Potassium 3.9 mmol/L (3.5-5.1); Sodium 139 mmol/L (136-145)
[2021-01-30] MEDS: Furosemide 20 MG TAB PO SCH (08:43)
[2021-01-30] MEDS: Metoprolol Tartrate 50 MG TAB PO SCH (08:43)
[2021-01-30] MEDS: Flecainide 50 MG TAB PO SCH (08:43)
[2021-01-30] MEDS: Acetaminophen 325 MG TAB PO PRN (08:55)
[2021-01-30 13:30] VITALS: BP 123/62; TEMP 97.9
== END 2021-01-30 13:20 | disposition home or self-care (01) | DRG 378 ==
LOC: ERS 18:17 → 2NO 21:17
PROVIDERS: ADMIT Internal Medicine; ATTEND Internal Medicine
PROC: 0W3P8ZZ Control Bleeding in Gastrointestinal Tract, Via Natural or Artificial Opening Endoscopic (ICD-10-PCS; principal; 2021-01-29)
DX: K31.811 Angiodysplasia of stomach and duodenum with bleeding (principal); I50.32 Chronic diastolic (congestive) heart failure; I48.20 Chronic atrial fibrillation, unspecified; D62 Acute posthemorrhagic anemia; K63.81 Dieulafoy lesion of intestine; Z20.822 Contact with and (suspected) exposure to COVID-19; K21.9 Gastro-esophageal reflux disease without esophagitis; M19.90 Unspecified osteoarthritis, unspecified site; J30.2 Other seasonal allergic rhinitis; I11.0 Hypertensive heart disease with heart failure; E78.5 Hyperlipidemia, unspecified; K57.30 Diverticulosis of large intestine without perforation or abscess without bleeding; Z95.0 Presence of cardiac pacemaker; Z79.01 Long term (current) use of anticoagulants; Z79.899 Other long term (current) drug therapy; Z88.1 Allergy status to other antibiotic agents; Z88.0 Allergy status to penicillin
CPT/HCPCS: 36415; 36430; 80048; 80053; 81003; 81015; 82728; 83540; 83550; 83735; 84443; 84484; 85025; 85610; 85730; 86850; 86900; 86901; 87086; 93005; C9113; J2704; J3480; P9016; U0003; U0005

== ENCOUNTER 2021-04-20 09:15 | Inpatient (IN) | payer MEDICARE ==
[2021-04-16 12:14] VITALS: BMI 27.3
[2021-04-23 15:38] LABS: Bilirubin Neg (Negative); Blood, Urine 25 (Negative); Clarity Clear (Clear); Glucose, Urine (Dipstick) Normal (Negative); Ketone, Urine Negative (Negative); Leukocyte 25 (Negative); Nitrite Negative (Negative); Protein, Urine (Dipstick) 30 mg/dl (Neg-Trace); Urobilinogen Normal mg/dL (Less than 2)
[2021-04-23 15:44] LABS: Hemoglobin 13.7 g/dL (12.0-15.5); Mean Corpuscular HGB CONC 32.8 g/dL (32.0-36.0); Mean Corpuscular Hemoglobin 35.8 pg (27.0-33.0); Mean Corpuscular Volume 109.1 fl (81.6-98.3); Mean Platelet Volume 11.2 fl (7.4-10.4); Platelet Count 237 10x3/uL (150-450); RBC Distribution Width 13.4 % (11.5-14.5); Red Blood Cell (RBC) Count 3.83 10x6/uL (3.90-5.03); White Blood Cell (WBC) Count 6.8 10x3/uL (3.5-10.5)
[2021-04-23 15:57] LABS: INR-International Normal Ratio 1.1; PTT 29.2 sec (22.0-33.0); Prothrombin Time 11.9 sec (9.5-12.1)
[2021-04-23 16:11] LABS: ALT (SGPT) 19 U/L (8-55); AST (SGOT) 29 U/L (5-34); Alkaline Phosphatase 67 U/L (40-110); Anion Gap 17 mmol/L (10-20); BUN (Urea Nitrogen) 20 mg/dL (9.8-20.1); Bilirubin, Total 0.4 mg/dL (0.2-1.2); Calc. Creatinine Clearance 0 mL/min (70-130); Calcium 11.2 mg/dL (7.8-10.44); Carbon Dioxide 27 mmol/L (23-31); Chloride 98 mmol/L (98-107); Glucose 105 mg/dL (83-110); Potassium 3.7 mmol/L (3.5-5.1); Sodium 138 mmol/L (136-145)
[2021-04-24 00:42] LABS: SARS-CoV-2 PCR by NAA Not Detected (NotDetected)
[2021-04-25] MEDS ORDERED: Iopamidol 370 76% 100 ML VIAL ONE (10:18)
[2021-04-25] MEDS ORDERED: Heparin 10,000 UNITS/ 10 ML VIAL ONE (13:10)
[2021-04-25] MEDS ORDERED: Lidocaine 1% (PF) 30 ML VIAL ONE (13:10)
[2021-04-25] MEDS ORDERED: Lidocaine 1% PF 5 ML VIAL ONE (13:47)
[2021-04-25] MEDS ORDERED: Labetalol HCl 100 MG/20 ML VIAL ONE (13:47)
[2021-04-25] MEDS ORDERED: Glycopyrrolate 0.2 MG/ML 5 ML SYRINGE ONE (13:47)
[2021-04-25] MEDS ORDERED: Ondansetron PF 4 MG/2 ML Vial ONE (13:47)
[2021-04-25] MEDS ORDERED: Rocuronium Bromide 10 MG/ML (10ML VIAL) ONE (13:47)
[2021-04-25] MEDS ORDERED: Dexamethasone 20 MG/5 ML VIAL ONE (13:47)
[2021-04-25] MEDS ORDERED: Ketorolac Tromethamine 30 MG/ML VIAL ONE (13:47)
[2021-04-25] MEDS ORDERED: PROPOFOL 200 MG/20 ML VIAL ONE (13:47)
[2021-04-25] MEDS ORDERED: Clindamycin/D5W 600 mg/50 ml Premix Bag ONE (14:29)
[2021-04-25] MEDS ORDERED: Protamine Sulfate 50 MG/5 ML VIAL ONE (15:04)
== END 2021-04-25 19:45 | disposition home or self-care (01) | DRG 274 ==
LOC: SURG A 04-25 09:59
PROVIDERS: ADMIT Internal Medicine Cardiovascular Disease; ATTEND Internal Medicine Cardiovascular Disease
PROC: 02L73DK Occlusion of Left Atrial Appendage with Intraluminal Device, Percutaneous Approach (ICD-10-PCS; principal; 2021-04-25)
PROC: B246ZZ4 Ultrasonography of Right and Left Heart, Transesophageal (ICD-10-PCS; 2021-04-25)
DX: I49.9 Cardiac arrhythmia, unspecified (principal); I50.32 Chronic diastolic (congestive) heart failure; Z20.822 Contact with and (suspected) exposure to COVID-19; J44.9 Chronic obstructive pulmonary disease, unspecified; I48.0 Paroxysmal atrial fibrillation; E78.5 Hyperlipidemia, unspecified; I49.5 Sick sinus syndrome; I27.20 Pulmonary hypertension, unspecified; M19.90 Unspecified osteoarthritis, unspecified site; Z88.1 Allergy status to other antibiotic agents; Z88.0 Allergy status to penicillin; Z91.048 Other nonmedicinal substance allergy status; Z78.1 Physical restraint status; Z79.01 Long term (current) use of anticoagulants; Z95.0 Presence of cardiac pacemaker; Z90.710 Acquired absence of both cervix and uterus; Z82.49 Family history of ischemic heart disease and other diseases of the circulatory system; Z80.9 Family history of malignant neoplasm, unspecified; Z90.49 Acquired absence of other specified parts of digestive tract; Z98.890 Other specified postprocedural states; Z98.42 Cataract extraction status, left eye; Z98.41 Cataract extraction status, right eye; Z85.828 Personal history of other malignant neoplasm of skin
CPT/HCPCS: 33340; 36430; 80053; 81003; 85027; 85347; 85610; 85730; 86850; 86900; 86901; 93005; 93010; 93306; 93312; 93662; C1759; J1100; J1644; J1885; J2001; J2405; J2704; J2720; J3490; Q9967; U0003; U0005

== ENCOUNTER 2021-04-23 13:58 | Outpatient (CLI) | payer MEDICARE | END 2021-04-23 13:59 | disposition home or self-care (01) | LOC: LABBT 13:58 | PROVIDERS: ATTEND Internal Medicine Cardiovascular Disease | DX: Z01.818 Encounter for other preprocedural examination (principal); I47.1 Supraventricular tachycardia; I48.0 Paroxysmal atrial fibrillation; Z20.822 Contact with and (suspected) exposure to COVID-19 | CPT/HCPCS: 80053; 81003; 85027; 85610; 85730; 86850; 86900; 86901; 86920; U0003; U0005; 93005; 93010 ==

== ENCOUNTER 2021-09-26 12:31 | Outpatient (CLI) | payer MEDICARE | END 2021-09-26 12:32 | disposition home or self-care (01) | LOC: BICMAMMO 12:31 | PROVIDERS: ATTEND Family Medicine | DX: Z12.31 Encounter for screening mammogram for malignant neoplasm of breast (principal); Z85.828 Personal history of other malignant neoplasm of skin; Z80.3 Family history of malignant neoplasm of breast | CPT/HCPCS: 77063; 77067 ==

== ENCOUNTER 2022-03-26 11:22 | Inpatient (IN) | payer MEDICARE ==
[2022-03-26 12:48] LABS: AST (SGOT) 46 U/L (5-34); Albumin 2.8 g/dL (3.4-4.8); Anion Gap 21 mmol/L (10-20); BUN (Urea Nitrogen) 83 mg/dL (9.8-20.1); Bilirubin, Total 0.8 mg/dL (0.2-1.2); Calc. Creatinine Clearance 0 mL/min (70-130); Carbon Dioxide 18 mmol/L (23-31); Chloride 94 mmol/L (98-107); Estimated GFR 11; Glucose 125 mg/dL (83-110); Potassium 3.6 mmol/L (3.5-5.1); Protein, Total 6.8 g/dL (5.8-8.1); Sodium 129 mmol/L (136-145)
[2022-03-26 13:06] LABS: Hemoglobin 12.8 g/dL (12.0-16.0); Mean Corpuscular HGB CONC 33.6 g/dL (32.0-36.0); RBC Distribution Width 12.4 % (11.5-14.5); Red Blood Cell (RBC) Count 3.37 mill/uL (4.20-5.40); White Blood Cell (WBC) Count 12.9 10x3/uL (4.8-10.8)
[2022-03-26 13:17] LABS: ALT (SGPT) 29 U/L (8-55); Alkaline Phosphatase 173 U/L (40-110); CK (CPK) 125 U/L (29-168)
[2022-03-26 13:26] LABS: Band 17 % (5-11); Dohle Bodies SLIGHT; Large Platelets SLIGHT; Lymphocytes 5 % (21-51); MDiff Complete? YES; Macrocytosis SLIGHT = 6-15 cells (100X) (0-5/hpf); Monocytes 5 % (0-10); Neutrophil 73 % (42-75); Platelet Count 39 10x3/uL (130-400); Platelet Morphology Comment Appears Decreased; Tear Drops SLIGHT = 2-5 cells (100X) (0-1/hpf); Toxic Granulation SLIGHT; Vacuoles SLIGHT
[2022-03-26] MEDS ORDERED: Fentanyl 100 MCG/2 ML VIAL ONE (13:31)
[2022-03-26] MEDS ORDERED: Aspirin Chewable 81 MG TAB ONE (15:02)
[2022-03-26] MEDS ORDERED: Cefepime 2 GM VIAL ONE (15:31)
[2022-03-26] MEDS ORDERED: Vancomycin 1.5 GRAM/300 ML BAG 1.5 GM in Premix Bag 1 BAG IVPB SCH (15:45)
[2022-03-26] MEDS ORDERED: Ondansetron ODT 4 MG TAB PO PRN (16:26)
[2022-03-26] MEDS ORDERED: Sodium Chloride 0.9% 1,000 ML IV SCH (16:26)
[2022-03-26] MEDS ORDERED: Ondansetron PF 4 MG/2 ML Vial IVP PRN (16:26)
[2022-03-26] MEDS ORDERED: Communication Order-Pharmacy FS ONE (16:26)
[2022-03-26 16:30] LABS: Bacteria/HPF 3+ HPF (None Seen); Bilirubin Negative (Negative); Blood, Urine 2+ (Negative); CAUTI Indications for Culture Alt mental st,lethar; Calcium Oxalate Crystals 2+ HPF (None Seen); Clarity Extra Turbid (Clear); Glucose, Urine (Dipstick) Normal (Negative); Ketone, Urine Negative (Negative); Leukocyte Negative Leu/uL (Negative); Nitrite Negative (Negative); Protein, Urine (Dipstick) 300 mg/dL (Neg-Trace); Specific Gravity, Urine 1.024 (1.002-1.036); Squamous Epithelial None Seen HPF (0-3); Urobilinogen Normal mg/dL (Less than 2); pH, Urine 5.5 (5.0-9.0)
[2022-03-26 16:31] LABS: Urine Culture Reflex No No
[2022-03-26 16:33] LABS: Actual Bicarbonate (HCO3v) 21 mEq/L (22-28); Analyzer IN Cardio ER; Base Excess -3.8 mEq/L (-2.0 to +3.0); Calcium, Ionized (venous) 0.96 mmol/L (1.16-1.32); Chloride (VBG) 98 mmol/L (98-106); Hemoglobin (Hb) 12.4 g/dL (11.7-16.1); Sodium 128.5 mmol/L (133-146); pH (venous) 7.39 (7.32-7.43)
[2022-03-26 16:48] LABS: Hemoglobin 11.6 g/dL (12.0-16.0); Mean Corpuscular HGB CONC 33.9 g/dL (32.0-36.0); Mean Corpuscular Hemoglobin 38.3 pg (27.0-31.0); Mean Platelet Volume 11.9 fL (7.4-10.4); Platelet Count 32 10x3/uL (130-400); RBC Distribution Width 12.4 % (11.5-14.5); Red Blood Cell (RBC) Count 3.03 mill/uL (4.20-5.40); White Blood Cell (WBC) Count 8.9 10x3/uL (4.8-10.8)
[2022-03-26 16:52] LABS: SARS-CoV-2 NAA Rapid Test Not Detected (NotDetected)
[2022-03-26 16:54] LABS: Creatinine, Urine 157.35 mg/dL (47-110)
[2022-03-26 17:00] LABS: Troponin I 0.027 ng/mL (< 0.028)
[2022-03-26 17:02] LABS: Band 4 % (5-11); Large Platelets SLIGHT; Lymphocytes 16 % (21-51); MDiff Complete? YES; Macrocytosis SLIGHT = 6-15 cells (100X) (0-5/hpf); Monocytes 5 % (0-10); Neutrophil 74 % (42-75); Platelet Morphology Comment Appears Decreased; Polychromasia SLIGHT = 2-3 cells (100X) (0-2/hpf); Reactive Lymphocytes 1 % (0-10)
[2022-03-26 17:08] LABS: Dohle Bodies SLIGHT; Toxic Granulation SLIGHT; Vacuoles SLIGHT
[2022-03-26] MEDS: Sodium Bicarbonate 150 MEQ in Dextrose 5% in Water 1,000 ML IV SCH (18:49)
[2022-03-26] MEDS ORDERED: NOREPINEPHRINE 8 MG/250 ML-D5W 250 ML ONE (19:21)
[2022-03-26] MEDS ORDERED: NOREPINEPHRINE 8 MG/250 ML-D5W 250 ML IVPB SCH (19:30)
[2022-03-26] MEDS ORDERED: Acetaminophen 650 MG Suppository PR PRN (19:50)
[2022-03-26 19:54] LABS: Lactic Acid 2.3 mmol/L (0.5-2.2)
[2022-03-26 19:58] LABS: Troponin I 0.052 ng/mL (< 0.028)
[2022-03-26] MEDS: Sodium Chloride 0.9% 1,000 ML IV SCH ×2 (20:00→23:56)
[2022-03-26] MEDS: Acetaminophen 500 MG TAB PO PRN (20:27)
[2022-03-26] MEDS: metroNIDAZOLE 500 MG in Premix Bag 1 BAG IVPB SCH (20:28)
[2022-03-26] MEDS ORDERED: Famotidine/PF 20 mg/2ml Vial SLOW IVP SCH (21:00)
[2022-03-26] MEDS ORDERED: Apixaban 5 MG TAB PO SCH (21:00)
[2022-03-26] MEDS ORDERED: Flecainide 50 MG TAB PO SCH (21:00)
[2022-03-27] MEDS: Sodium Bicarbonate 150 MEQ in Dextrose 5% in Water 1,000 ML IV SCH (04:54)
[2022-03-27] MEDS: metroNIDAZOLE 500 MG in Premix Bag 1 BAG IVPB SCH ×3 (04:56→22:53)
[2022-03-27] MEDS: Sodium Chloride 0.9% 1,000 ML IV SCH (06:26)
[2022-03-27] MEDS: Acetaminophen 500 MG TAB PO PRN ×2 (06:34→13:27)
[2022-03-27 08:08] LABS: Hemoglobin 10.9 g/dL (12.0-16.0); Mean Corpuscular HGB CONC 33.6 g/dL (32.0-36.0); Mean Corpuscular Hemoglobin 37.9 pg (27.0-31.0); Mean Platelet Volume 11.3 fL (7.4-10.4); Platelet Count 30 10x3/uL (130-400); RBC Distribution Width 12.5 % (11.5-14.5); Red Blood Cell (RBC) Count 2.89 mill/uL (4.20-5.40); White Blood Cell (WBC) Count 9.7 10x3/uL (4.8-10.8)
[2022-03-27 08:24] LABS: ALT (SGPT) 28 U/L (8-55); AST (SGOT) 53 U/L (5-34); Albumin 2.3 g/dL (3.4-4.8); Alkaline Phosphatase 132 U/L (40-110); Anion Gap 14 mmol/L (10-20); BUN (Urea Nitrogen) 79 mg/dL (9.8-20.1); Bilirubin, Total 0.5 mg/dL (0.2-1.2); Calc. Creatinine Clearance 16 mL/min (70-130); Calcium 8.2 mg/dL (7.8-10.44); Carbon Dioxide 28 mmol/L (23-31); Chloride 92 mmol/L (98-107); Estimated GFR 12; Globulin 3.5 g/dL (2.4-3.5); Glucose 190 mg/dL (83-110); Potassium 2.8 mmol/L (3.5-5.1); Protein, Total 5.8 g/dL (5.8-8.1); Sodium 131 mmol/L (136-145)
[2022-03-27] MEDS ORDERED: Potassium Chloride 40 MEQ in Premix Bag 1 BAG IVPB STA (08:39)
[2022-03-27] MEDS ORDERED: Famotidine/PF 20 mg/2ml Vial SLOW IVP SCH (09:00)
[2022-03-27] MEDS ORDERED: FLU VACC QS2022-23(65YR UP)/PF 240 MCG/0.7 ML SYRINGE IM ONE (09:00)
[2022-03-27] MEDS ORDERED: Flecainide 50 MG TAB PO SCH (09:00)
[2022-03-27 09:09] LABS: Magnesium 2.1 mg/dL (1.6-2.6); Phosphorus 2.7 mg/dL (2.3-4.7)
[2022-03-27] MEDS: Albumin 25% 25 GM/100 ML BOT IVPB SCH ×3 (09:20→20:43)
[2022-03-27] MEDS: Dextrose 5%-Lactated Ringers 1,000 ML IV SCH ×2 (09:20→20:00)
[2022-03-27] MEDS: Potassium Chloride 20 MEQ in Premix Bag 1 BAG IVPB SCH ×2 (09:21→11:32)
[2022-03-27 09:40] LABS: Band 10 % (5-11); Eosinophils 1 % (0-10); Lymphocytes 4 % (21-51); MDiff Complete? YES; Macrocytosis MODERATE=16-30 cells (100X) (0-5/hpf); Monocytes 11 % (0-10); Neutrophil 74 % (42-75); Platelet Morphology Comment Appears Decreased; Polychromasia SLIGHT = 2-3 cells (100X) (0-2/hpf)
[2022-03-27] MEDS ORDERED: BLUE EMU CREAM TOP PRN (10:33)
[2022-03-27] MEDS: Cefepime 1 GM in Sodium Chloride 0.9% 100 ML IVPB SCH (15:42)
[2022-03-27] MEDS: Morphine 4 MG/ML VIAL SLOW IVP PRN (20:37)
[2022-03-28 00:58] LABS: Potassium 2.9 mmol/L (3.5-5.1)
[2022-03-28] MEDS: Potassium Chloride 20 MEQ in Premix Bag 1 BAG IVPB SCH ×2 (01:47→03:51)
[2022-03-28] MEDS: Morphine 4 MG/ML VIAL SLOW IVP PRN ×3 (03:52→13:06)
[2022-03-28] MEDS: Dextrose 5%-Lactated Ringers 1,000 ML IV SCH ×2 (05:58→14:37)
[2022-03-28] MEDS: metroNIDAZOLE 500 MG in Premix Bag 1 BAG IVPB SCH ×3 (06:01→21:57)
[2022-03-28 07:11] LABS: Anion Gap 11 mmol/L (10-20); BUN (Urea Nitrogen) 60 mg/dL (9.8-20.1); Calc. Creatinine Clearance 33 mL/min (70-130); Calcium 9.4 mg/dL (7.8-10.44); Carbon Dioxide 27 mmol/L (23-31); Chloride 103 mmol/L (98-107); Estimated GFR 28; Glucose 136 mg/dL (83-110); Magnesium 2.2 mg/dL (1.6-2.6); Potassium 3.8 mmol/L (3.5-5.1); Sodium 137 mmol/L (136-145)
[2022-03-28] MEDS ORDERED: Potassium Chloride 20 MEQ TAB PO SCH (08:00)
[2022-03-28 08:15] LABS: Hemoglobin 9.9 g/dL (12.0-16.0); Mean Corpuscular Hemoglobin 37.2 pg (27.0-31.0); Mean Platelet Volume 11.9 fL (7.4-10.4); Platelet Count 27 10x3/uL (130-400); RBC Distribution Width 12.7 % (11.5-14.5); Red Blood Cell (RBC) Count 2.66 mill/uL (4.20-5.40); White Blood Cell (WBC) Count 11.6 10x3/uL (4.8-10.8)
[2022-03-28 09:04] LABS: Band 6 % (5-11); Lymphocytes 11 % (21-51); MDiff Complete? YES; Macrocytosis SLIGHT = 6-15 cells (100X) (0-5/hpf); Monocytes 10 % (0-10); Neutrophil 71 % (42-75); Platelet Morphology Comment Appears Decreased; Polychromasia SLIGHT = 2-3 cells (100X) (0-2/hpf); Reactive Lymphocytes 2 % (0-10)
[2022-03-28] MEDS ORDERED: Gabapentin 300 MG CAP PO SCH (09:45)
[2022-03-28] MEDS: Cefepime 1 GM in Sodium Chloride 0.9% 100 ML IVPB SCH (15:00)
[2022-03-28] MEDS: Methocarbamol 500 MG TAB PO SCH ×2 (15:00→21:56)
[2022-03-28] MEDS: Gabapentin 300 MG CAP PO SCH (21:56)
[2022-03-29 04:51] LABS: Hemoglobin 10.4 g/dL (12.0-16.0); Mean Corpuscular HGB CONC 33.2 g/dL (32.0-36.0); Mean Corpuscular Hemoglobin 37.4 pg (27.0-31.0); Mean Platelet Volume 11.4 fL (7.4-10.4); Platelet Count 38 10x3/uL (130-400); RBC Distribution Width 12.5 % (11.5-14.5); Red Blood Cell (RBC) Count 2.77 mill/uL (4.20-5.40); White Blood Cell (WBC) Count 11.7 10x3/uL (4.8-10.8)
[2022-03-29] MEDS: Morphine 4 MG/ML VIAL SLOW IVP PRN (04:54)
[2022-03-29] MEDS: Acetaminophen 500 MG TAB PO PRN ×2 (04:55→20:58)
[2022-03-29 04:56] LABS: Anion Gap 13 mmol/L (10-20); BUN (Urea Nitrogen) 35 mg/dL (9.8-20.1); Calc. Creatinine Clearance 68 mL/min (70-130); Calcium 10.1 mg/dL (7.8-10.44); Carbon Dioxide 27 mmol/L (23-31); Chloride 100 mmol/L (98-107); Estimated GFR 68; Glucose 103 mg/dL (83-110); Magnesium 1.6 mg/dL (1.6-2.6); Potassium 3.6 mmol/L (3.5-5.1); Sodium 136 mmol/L (136-145)
[2022-03-29] MEDS: metroNIDAZOLE 500 MG in Premix Bag 1 BAG IVPB SCH ×3 (05:02→21:00)
[2022-03-29 05:30] LABS: Band 15 % (5-11); Eosinophils 2 % (0-10); Lymphocytes 19 % (21-51); MDiff Complete? YES; Macrocytosis SLIGHT = 6-15 cells (100X) (0-5/hpf); Monocytes 8 % (0-10); Neutrophil 56 % (42-75)
[2022-03-29] MEDS: Dextrose 5%-Lactated Ringers 1,000 ML IV SCH (06:32)
[2022-03-29] MEDS ORDERED: Magnesium Sulfate In Water 4 GM in Premix Bag 1 BAG IVPB SCH (08:00)
[2022-03-29] MEDS: Methocarbamol 500 MG TAB PO SCH ×3 (08:15→20:59)
[2022-03-29] MEDS: Gabapentin 300 MG CAP PO SCH ×2 (08:16→20:58)
[2022-03-29] MEDS ORDERED: Lisinopril 10 MG TAB PO SCH (09:15)
[2022-03-29] MEDS: Cefepime 1 GM in Sodium Chloride 0.9% 100 ML IVPB SCH (14:11)
[2022-03-30 05:16] LABS: Anion Gap 16 mmol/L (10-20); BUN (Urea Nitrogen) 21 mg/dL (9.8-20.1); Calc. Creatinine Clearance 81 mL/min (70-130); Calcium 10.4 mg/dL (7.8-10.44); Carbon Dioxide 25 mmol/L (23-31); Chloride 98 mmol/L (98-107); Estimated GFR 85; Glucose 100 mg/dL (83-110); Magnesium 1.6 mg/dL (1.6-2.6); Potassium 3.3 mmol/L (3.5-5.1); Sodium 136 mmol/L (136-145)
[2022-03-30] MEDS: metroNIDAZOLE 500 MG in Premix Bag 1 BAG IVPB SCH ×2 (06:18→15:19)
[2022-03-30] MEDS ORDERED: Magnesium Sulfate 4 GM in Sodium Chloride 0.9% 250 ML 250 ML IVPB SCH (07:15)
[2022-03-30] MEDS ORDERED: Magnesium Sulfate In Water 4 GM in Premix Bag 1 BAG IVPB SCH (08:00)
[2022-03-30] MEDS: Gabapentin 300 MG CAP PO SCH ×2 (11:12→20:45)
[2022-03-30] MEDS: Potassium Chloride 20 MEQ TAB PO SCH ×2 (11:13→15:26)
[2022-03-30] MEDS: Methocarbamol 500 MG TAB PO SCH ×3 (11:13→20:47)
[2022-03-30] MEDS: Acetaminophen 500 MG TAB PO PRN ×2 (11:14→20:46)
[2022-03-30] MEDS: Aspirin 81 mg Enteric Coated Tablet PO SCH (11:15)
[2022-03-30] MEDS: Lisinopril 10 MG TAB PO SCH (11:15)
[2022-03-30] MEDS: Cefepime 1 GM in Sodium Chloride 0.9% 100 ML IVPB SCH (15:25)
[2022-03-31 05:12] LABS: Anion Gap 12 mmol/L (10-20); BUN (Urea Nitrogen) 16 mg/dL (9.8-20.1); Calc. Creatinine Clearance 93 mL/min (70-130); Calcium 9.6 mg/dL (7.8-10.44); Carbon Dioxide 26 mmol/L (23-31); Chloride 102 mmol/L (98-107); Estimated GFR 90; Glucose 97 mg/dL (83-110); Sodium 136 mmol/L (136-145)
[2022-03-31 06:22] LABS: Band 7 % (5-11); Hemoglobin 10.2 g/dL (12.0-16.0); Lymphocytes 15 % (21-51); MDiff Complete? YES; Mean Corpuscular HGB CONC 33.3 g/dL (32.0-36.0); Mean Platelet Volume 11.5 fL (7.4-10.4); Monocytes 12 % (0-10); Neutrophil 66 % (42-75); Platelet Count 63 10x3/uL (130-400); Platelet Morphology Comment Appears Decreased; RBC Distribution Width 12.7 % (11.5-14.5); Red Blood Cell (RBC) Count 2.69 mill/uL (4.20-5.40); White Blood Cell (WBC) Count 11.4 10x3/uL (4.8-10.8)
[2022-03-31] MEDS: Gabapentin 300 MG CAP PO SCH ×2 (09:47→20:56)
[2022-03-31] MEDS: Methocarbamol 500 MG TAB PO SCH ×3 (09:47→20:59)
[2022-03-31] MEDS: Aspirin 81 mg Enteric Coated Tablet PO SCH (09:47)
[2022-03-31] MEDS: Lisinopril 10 MG TAB PO SCH (09:48)
[2022-03-31] MEDS ORDERED: Amiodarone 200 MG TAB PO SCH ×2 (10:15→21:00)
[2022-03-31] MEDS ORDERED: Furosemide 100 MG/10 ML VIAL SLOW IVP SCH (10:15)
[2022-03-31] MEDS: Cefepime 2 GM in Sodium Chloride 0.9% 100 ML IVPB SCH (15:05)
[2022-03-31] MEDS ORDERED: Morphine 2 MG/ML VIAL SLOW IVP PRN (15:15)
[2022-03-31] MEDS ORDERED: Digoxin 0.25 MG TAB PO SCH (18:45)
[2022-03-31] MEDS ORDERED: GUAIFENESIN SF SOLN 200 MG/10 ML UDCUP PO PRN (20:55)
[2022-03-31] MEDS: Acetaminophen 500 MG TAB PO PRN (20:57)
[2022-04-01] MEDS: Cefepime 2 GM in Sodium Chloride 0.9% 100 ML IVPB SCH ×2 (03:24→14:41)
[2022-04-01 05:04] LABS: Anion Gap 13 mmol/L (10-20); BUN (Urea Nitrogen) 15 mg/dL (9.8-20.1); Calc. Creatinine Clearance 92 mL/min (70-130); Calcium 9.8 mg/dL (7.8-10.44); Carbon Dioxide 28 mmol/L (23-31); Chloride 99 mmol/L (98-107); Estimated GFR 90; Glucose 97 mg/dL (83-110); Potassium 3.7 mmol/L (3.5-5.1); Sodium 136 mmol/L (136-145)
[2022-04-01 05:28] LABS: #Eosinphils 0.1 thou/uL (0.0-0.7); #Lymphocytes 1.5 thou/uL (1.20-3.40); #Monocytes 0.9 thou/uL (0.11-0.59); #Neutrophils 8.2 thou/uL (1.40-6.50); %Basophils 0.1 % (0.0-1.0); %Eosinophils 0.8 % (0.0-10.0); %Lymphocytes 14.1 % (21.0-51.0); %Monocytes 8.4 % (0.0-10.0); %Neutrophils 76.5 % (42.0-75.0); Hemoglobin 10.3 g/dL (12.0-16.0); MDiff Complete? YES; Macrocytosis SLIGHT = 6-15 cells (100X) (0-5/hpf); Mean Corpuscular HGB CONC 33.4 g/dL (32.0-36.0); Mean Corpuscular Hemoglobin 38.5 pg (27.0-31.0); Mean Platelet Volume 11.3 fL (7.4-10.4); Platelet Count 86 10x3/uL (130-400); Platelet Morphology Comment Appears Decreased; RBC Distribution Width 12.7 % (11.5-14.5); Red Blood Cell (RBC) Count 2.66 mill/uL (4.20-5.40); White Blood Cell (WBC) Count 10.7 10x3/uL (4.8-10.8)
[2022-04-01] MEDS ORDERED: Metoprolol Tartrate 5 MG/5 ML VIAL IVP SCH (07:30)
[2022-04-01] MEDS: Methocarbamol 500 MG TAB PO SCH ×3 (07:50→20:59)
[2022-04-01] MEDS: Gabapentin 300 MG CAP PO SCH ×2 (07:50→20:59)
[2022-04-01] MEDS: Furosemide 20 MG TAB PO SCH ×2 (07:51→14:18)
[2022-04-01] MEDS: Aspirin 81 mg Enteric Coated Tablet PO SCH (07:51)
[2022-04-01] MEDS: Lisinopril 10 MG TAB PO SCH (07:51)
[2022-04-01] MEDS ORDERED: Diltiazem HCl 125 MG, Admixture Fee 1 EACH in Sodium Chloride 0.9% 100 ML IVPB SCH (09:45)
[2022-04-01] MEDS ORDERED: Flecainide 50 MG TAB PO SCH ×3 (10:02→21:00)
[2022-04-02] MEDS ORDERED: Ipratropium/Albuterol 3 ML NEB NEB SCH (00:15)
[2022-04-02] MEDS ORDERED: Furosemide 20 MG/2 ML VIAL SLOW IVP SCH (00:15)
[2022-04-02] MEDS: Cefepime 2 GM in Sodium Chloride 0.9% 100 ML IVPB SCH ×2 (03:45→14:14)
[2022-04-02 04:53] LABS: #Eosinphils 0.1 thou/uL (0.0-0.7); #Lymphocytes 1.3 thou/uL (1.20-3.40); #Neutrophils 10.8 thou/uL (1.40-6.50); %Basophils 0.1 % (0.0-1.0); %Eosinophils 0.7 % (0.0-10.0); %Monocytes 7.7 % (0.0-10.0); %Neutrophils 81.5 % (42.0-75.0); Hemoglobin 8.9 g/dL (12.0-16.0); Mean Corpuscular HGB CONC 33.4 g/dL (32.0-36.0); Mean Corpuscular Hemoglobin 38.1 pg (27.0-31.0); Mean Platelet Volume 11.3 fL (7.4-10.4); Platelet Count 98 10x3/uL (130-400); RBC Distribution Width 12.7 % (11.5-14.5); Red Blood Cell (RBC) Count 2.34 mill/uL (4.20-5.40); White Blood Cell (WBC) Count 13.3 10x3/uL (4.8-10.8)
[2022-04-02 05:08] LABS: Anion Gap 13 mmol/L (10-20); BUN (Urea Nitrogen) 16 mg/dL (9.8-20.1); Calc. Creatinine Clearance 87 mL/min (70-130); Calcium 9.4 mg/dL (7.8-10.44); Carbon Dioxide 26 mmol/L (23-31); Chloride 99 mmol/L (98-107); Estimated GFR 89; Glucose 98 mg/dL (83-110); Potassium 3.7 mmol/L (3.5-5.1); Sodium 134 mmol/L (136-145)
[2022-04-02] MEDS: Ipratropium/Albuterol 3 ML NEB NEB PRN ×2 (06:02→23:26)
[2022-04-02] MEDS: Acetaminophen 500 MG TAB PO PRN (06:02)
[2022-04-02] MEDS ORDERED: Furosemide 40 MG/4 ML VIAL SLOW IVP SCH (07:00)
[2022-04-02] MEDS: Lisinopril 10 MG TAB PO SCH (08:42)
[2022-04-02] MEDS: Methocarbamol 500 MG TAB PO SCH ×3 (08:42→19:14)
[2022-04-02] MEDS: Aspirin 81 mg Enteric Coated Tablet PO SCH (08:42)
[2022-04-02] MEDS: Gabapentin 300 MG CAP PO SCH ×2 (08:42→19:14)
[2022-04-02] MEDS: Flecainide 50 MG TAB PO SCH ×2 (08:45→19:14)
[2022-04-02] MEDS: Furosemide 20 MG/2 ML VIAL SLOW IVP SCH (14:14)
[2022-04-03] MEDS: Cefepime 2 GM in Sodium Chloride 0.9% 100 ML IVPB SCH ×2 (03:18→15:23)
[2022-04-03 04:42] LABS: #Eosinphils 0.1 thou/uL (0.0-0.7); #Lymphocytes 1.6 thou/uL (1.20-3.40); #Neutrophils 10.4 thou/uL (1.40-6.50); %Basophils 0.3 % (0.0-1.0); %Eosinophils 0.5 % (0.0-10.0); %Lymphocytes 12.1 % (21.0-51.0); %Monocytes 7.8 % (0.0-10.0); %Neutrophils 79.3 % (42.0-75.0); Hemoglobin 9.6 g/dL (12.0-16.0); Mean Corpuscular HGB CONC 32.9 g/dL (32.0-36.0); Mean Corpuscular Hemoglobin 37.7 pg (27.0-31.0); Mean Platelet Volume 11.1 fL (7.4-10.4); Platelet Count 122 10x3/uL (130-400); RBC Distribution Width 12.7 % (11.5-14.5); Red Blood Cell (RBC) Count 2.56 mill/uL (4.20-5.40); White Blood Cell (WBC) Count 13.1 10x3/uL (4.8-10.8)
[2022-04-03 05:07] LABS: Anion Gap 16 mmol/L (10-20); BUN (Urea Nitrogen) 14 mg/dL (9.8-20.1); CRP (Inflammatory) 15.43 mg/dL (= or < 0.5); Calc. Creatinine Clearance 93 mL/min (70-130); Calcium 9.5 mg/dL (7.8-10.44); Carbon Dioxide 23 mmol/L (23-31); Chloride 98 mmol/L (98-107); Estimated GFR 91; Glucose 92 mg/dL (83-110); Potassium 3.8 mmol/L (3.5-5.1); Sodium 133 mmol/L (136-145)
[2022-04-03] MEDS: Ipratropium/Albuterol 3 ML NEB NEB PRN (05:42)
[2022-04-03] MEDS: Furosemide 20 MG/2 ML VIAL SLOW IVP SCH (05:42)
[2022-04-03] MEDS ORDERED: Furosemide 20 MG/2 ML VIAL SLOW IVP SCH (07:45)
[2022-04-03] MEDS: Spironolactone 25 MG TAB PO SCH (10:11)
[2022-04-03] MEDS: Methocarbamol 500 MG TAB PO SCH ×3 (10:12→20:10)
[2022-04-03] MEDS: Gabapentin 300 MG CAP PO SCH ×2 (10:12→20:10)
[2022-04-03] MEDS: Aspirin 81 mg Enteric Coated Tablet PO SCH (10:12)
[2022-04-03] MEDS: Lisinopril 10 MG TAB PO SCH (10:12)
[2022-04-03] MEDS: Flecainide 50 MG TAB PO SCH ×2 (10:13→20:10)
[2022-04-03 11:20] VITALS: BMI 29.8
[2022-04-03] MEDS: Acetaminophen 500 MG TAB PO PRN ×2 (13:21→20:09)
[2022-04-03] MEDS: Furosemide 40 MG/4 ML VIAL SLOW IVP SCH (15:22)
[2022-04-04] MEDS: Cefepime 2 GM in Sodium Chloride 0.9% 100 ML IVPB SCH (03:01)
[2022-04-04] MEDS: Ipratropium/Albuterol 3 ML NEB NEB PRN (03:02)
[2022-04-04 04:51] LABS: #Eosinphils 0.1 thou/uL (0.0-0.7); #Lymphocytes 1.4 thou/uL (1.20-3.40); #Monocytes 0.7 thou/uL (0.11-0.59); #Neutrophils 9.8 thou/uL (1.40-6.50); %Basophils 0.1 % (0.0-1.0); %Eosinophils 0.9 % (0.0-10.0); %Lymphocytes 11.3 % (21.0-51.0); %Monocytes 6.2 % (0.0-10.0); %Neutrophils 81.5 % (42.0-75.0); Hemoglobin 10.5 g/dL (12.0-16.0); Mean Corpuscular HGB CONC 33.1 g/dL (32.0-36.0); Mean Corpuscular Hemoglobin 37.9 pg (27.0-31.0); Mean Platelet Volume 10.8 fL (7.4-10.4); Platelet Count 144 10x3/uL (130-400); RBC Distribution Width 12.8 % (11.5-14.5); Red Blood Cell (RBC) Count 2.77 mill/uL (4.20-5.40)
[2022-04-04 05:16] LABS: Anion Gap 16 mmol/L (10-20); BUN (Urea Nitrogen) 15 mg/dL (9.8-20.1); Calc. Creatinine Clearance 82 mL/min (70-130); Calcium 9.9 mg/dL (7.8-10.44); Carbon Dioxide 25 mmol/L (23-31); Chloride 97 mmol/L (98-107); Estimated GFR 88; Glucose 90 mg/dL (83-110); Potassium 3.1 mmol/L (3.5-5.1); Sodium 135 mmol/L (136-145)
[2022-04-04] MEDS: Furosemide 40 MG/4 ML VIAL SLOW IVP SCH ×2 (06:21→14:45)
[2022-04-04] MEDS: Acetaminophen 500 MG TAB PO PRN ×2 (06:21→13:49)
[2022-04-04] MEDS: Lisinopril 10 MG TAB PO SCH (09:08)
[2022-04-04] MEDS: Spironolactone 25 MG TAB PO SCH (09:08)
[2022-04-04] MEDS: Flecainide 50 MG TAB PO SCH (09:08)
[2022-04-04] MEDS: Aspirin 81 mg Enteric Coated Tablet PO SCH (09:09)
[2022-04-04] MEDS: Gabapentin 300 MG CAP PO SCH (09:09)
[2022-04-04] MEDS: Methocarbamol 500 MG TAB PO SCH ×2 (09:09→14:45)
[2022-04-04 12:44] VITALS: BP 127/60; TEMP 96.6
[2022-04-04 16:18] LABS: SARS-CoV-2 NAA Rapid Test DETECTED (NotDetected)
== END 2022-04-04 15:55 | DRG 871 ==
LOC: ERS 11:22 → ERHOLD 15:41 → IMCU/EMU 18:08 → CCU 19:17 → 2NO 03-28 14:33
PROVIDERS: ADMIT Family Medicine; ATTEND Hospitalist
DX: A41.51 Sepsis due to Escherichia coli [E. coli] (principal); G93.41 Metabolic encephalopathy; J96.01 Acute respiratory failure with hypoxia; R65.21 Severe sepsis with septic shock; U07.1 COVID-19; I50.33 Acute on chronic diastolic (congestive) heart failure; N17.9 Acute kidney failure, unspecified; E87.1 Hypo-osmolality and hyponatremia; E87.20 Acidosis, unspecified; Z20.822 Contact with and (suspected) exposure to COVID-19; I48.19 Other persistent atrial fibrillation; E78.5 Hyperlipidemia, unspecified; K21.9 Gastro-esophageal reflux disease without esophagitis; I49.5 Sick sinus syndrome; I27.20 Pulmonary hypertension, unspecified; E87.6 Hypokalemia; E86.0 Dehydration; D69.6 Thrombocytopenia, unspecified; E83.42 Hypomagnesemia; Z88.1 Allergy status to other antibiotic agents; Z88.0 Allergy status to penicillin; Z79.82 Long term (current) use of aspirin; Z79.899 Other long term (current) drug therapy; Z95.0 Presence of cardiac pacemaker; Z90.710 Acquired absence of both cervix and uterus
CPT/HCPCS: 36415; 36416; 51701; 70450; 71045; 74176; 80048; 80053; 81001; 82550; 82570; 82805; 83605; 83735; 83880; 84100; 84132; 84145; 84156; 84300; 84484; 84540; 85025; 85379; 86140; 87040; 87076; 87086; 87149; 87811; 93005; 93010; 94640; 96360; 96361; 96365; 96366; 96367; 96375; J0692; J1940; J2270; J3010; J3370; J3475; J3480; J3490; J7070; J7620; P9047; S0028; U0002

== ENCOUNTER 2022-11-19 10:47 | Outpatient (CLI) | payer MEDICARE | END 2022-11-19 10:48 | disposition home or self-care (01) | LOC: BICMAMMO 10:47 | PROVIDERS: ATTEND Family Medicine | DX: Z12.31 Encounter for screening mammogram for malignant neoplasm of breast (principal); Z80.3 Family history of malignant neoplasm of breast; Z85.828 Personal history of other malignant neoplasm of skin | CPT/HCPCS: 77063; 77067 ==

== ENCOUNTER 2024-04-25 09:58 | Inpatient (IN) | payer MEDICARE ==
[2024-04-25 11:01] LABS: Hematocrit 42.5 % (36.0-47.0); Hemoglobin 14.1 g/dL (12.0-16.0); Mean Corpuscular HGB CONC 33.2 g/dL (32.0-36.0); Mean Corpuscular Hemoglobin 38.2 pg (27.0-31.0); Mean Corpuscular Volume 115.2 fL (78.0-98.0); Platelet Count 195 10x3/uL (130-400); Red Blood Cell (RBC) Count 3.69 mill/uL (4.20-5.40)
[2024-04-25 11:13] LABS: INR-International Normal Ratio 1.2; PTT 31.7 sec (22.9-36.1); Prothrombin Time 14.8 sec (12.0-14.7)
[2024-04-25 11:20] LABS: Troponin I 0.014 ng/mL (< 0.028)
[2024-04-25 11:23] LABS: ALT (SGPT) 107 U/L (Less than 34); AST (SGOT) 110 U/L (11-34); Albumin 3.7 g/dL (3.1-4.5); Alkaline Phosphatase 84 U/L (40-110); Anion Gap 18 mmol/L (10-20); BUN (Urea Nitrogen) 25 mg/dL (9.8-20.1); Bilirubin, Total 0.5 mg/dL (0.3-1.2); Calc. Creatinine Clearance 0 mL/min (70-130); Calcium 11.5 mg/dL (7.8-10.44); Carbon Dioxide 20 mmol/L (23-31); Chloride 106 mmol/L (98-107); Estimated GFR 45; Globulin 4.6 g/dL (2.4-3.5); Glucose 148 mg/dL (83-110); Lipase 35 U/L (8-78); Magnesium 2.1 mg/dL (1.6-2.6); Protein, Total 8.3 g/dL (5.8-8.1); Sodium 139 mmol/L (136-145)
[2024-04-25 11:32] LABS: Bacteria/HPF None Seen HPF (None Seen); Bilirubin Negative (Negative); Blood, Urine Negative (Negative); CAUTI Indications for Culture Dysuria,urgency,freq; Clarity Clear (Clear); Glucose, Urine (Dipstick) Normal (Negative); Ketone, Urine Negative (Negative); Leukocyte Negative Leu/uL (Negative); Nitrite Negative (Negative); Protein, Urine (Dipstick) Negative (Neg-Trace); RBC/HPF 0-3 HPF (0-3); Specific Gravity, Urine 1.008 (1.002-1.036); Squamous Epithelial 0-3 HPF (0-3); Urobilinogen Normal mg/dL (Less than 2); WBC/HPF 0-3 HPF (0-3)
[2024-04-25 11:55] LABS: Urine Culture Reflex No No
[2024-04-25 12:04] LABS: #Basophils Less than 0.03 10x3/uL (0.0-0.2); %Basophils 0.2 % (0.0-1.0); %Eosinophils 0.9 % (0.0-10.0); %Lymphocytes 18.2 % (21.0-51.0); %Monocytes 6.2 % (0.0-10.0); %Neutrophils 74.1 % (42.0-75.0); Macrocytosis MODERATE=16-30 cells (100X) (0-5/hpf); Ovalocytes MODERATE= 6-15 cells (100X) (0-1/hpf); Plasma Cells 0 % (0-0); Platelet Adequacy Comment Appears Adequate
[2024-04-25] MEDS ORDERED: Furosemide 40 MG (4 mL) VIAL ONE (12:44)
[2024-04-25] MEDS ORDERED: Senokot S 8.6-50 MG TAB PO PRN (14:06)
[2024-04-25] MEDS ORDERED: Ondansetron ODT 4 MG TAB PO PRN (14:06)
[2024-04-25 15:37] VITALS: BMI 27.3
[2024-04-25 16:00] LABS: Lactic Acid 2.68 mmol/L (0.50-2.20)
[2024-04-25] MEDS: Flecainide 50 MG TAB PO SCH (20:44)
[2024-04-25] MEDS: Acetaminophen 325 MG TAB PO PRN (21:18)
[2024-04-26 07:21] LABS: #Basophils Less than 0.03 10x3/uL (0.0-0.2); %Basophils 0.2 % (0.0-1.0); %Eosinophils 1.3 % (0.0-10.0); %Lymphocytes 19.3 % (21.0-51.0); %Monocytes 8.4 % (0.0-10.0); %Neutrophils 70.6 % (42.0-75.0); Hematocrit 38.4 % (36.0-47.0); Hemoglobin 12.7 g/dL (12.0-16.0); Mean Corpuscular HGB CONC 33.1 g/dL (32.0-36.0); Mean Corpuscular Hemoglobin 37.8 pg (27.0-31.0); Mean Corpuscular Volume 114.3 fL (78.0-98.0); Mean Platelet Volume 10.7 fL (7.4-10.4); Platelet Count 179 10x3/uL (130-400); Red Blood Cell (RBC) Count 3.36 mill/uL (4.20-5.40)
[2024-04-26 07:42] LABS: ALT (SGPT) 81 U/L (Less than 34); AST (SGOT) 70 U/L (11-34); Albumin 3.5 g/dL (3.1-4.5); Alkaline Phosphatase 78 U/L (40-110); Anion Gap 18 mmol/L (10-20); BUN (Urea Nitrogen) 25 mg/dL (9.8-20.1); Bilirubin, Total 0.8 mg/dL (0.3-1.2); Calc. Creatinine Clearance 49 mL/min (70-130); Carbon Dioxide 22 mmol/L (23-31); Chloride 104 mmol/L (98-107); Estimated GFR 54; Globulin 4.4 g/dL (2.4-3.5); Glucose 91 mg/dL (83-110); Potassium 3.9 mmol/L (3.5-5.1); Protein, Total 7.9 g/dL (5.8-8.1); Sodium 140 mmol/L (136-145)
[2024-04-26] MEDS: Aspirin 81 mg Enteric Coated Tablet PO SCH (08:12)
[2024-04-26] MEDS: Furosemide 40 MG (4 mL) VIAL SLOW IVP SCH (08:12)
[2024-04-26] MEDS: Enoxaparin 40 MG (0.4 mL) SYRINGE SC SCH (08:13)
[2024-04-26] MEDS: Spironolactone 25 MG TAB PO SCH (08:59)
[2024-04-26] MEDS: Metoprolol Succinate XL 50 MG ER.TAB PO SCH (08:59)
[2024-04-26] MEDS: Dapagliflozin Propanediol 10 MG TAB PO SCH (08:59)
[2024-04-26] MEDS: Acetaminophen 325 MG TAB PO PRN (09:46)
[2024-04-26] MEDS: Docusate 100 MG CAP PO SCH (20:50)
[2024-04-26] MEDS: Ezetimibe 10 MG TAB PO SCH (20:50)
[2024-04-26] MEDS: Atorvastatin Calcium 40 MG TAB PO SCH (20:50)
[2024-04-26] MEDS: Flecainide 50 MG TAB PO SCH (20:50)
[2024-04-27] MEDS ORDERED: Spironolactone 25 MG TAB PO SCH (08:00)
[2024-04-27 08:30] VITALS: BP 127/72; TEMP 97.7
[2024-04-28] MEDS ORDERED: Furosemide 20 MG TAB PO SCH (09:00)
== END 2024-04-27 11:25 | disposition home or self-care (01) | DRG 308 ==
LOC: ERS 09:58 → OBS 13:11 → OBSVTOIN 04-26 11:06
PROVIDERS: ADMIT Internal Medicine; ATTEND Hospitalist
DX: I47.19 Other supraventricular tachycardia (principal); I50.33 Acute on chronic diastolic (congestive) heart failure; N17.9 Acute kidney failure, unspecified; I48.92 Unspecified atrial flutter; I11.0 Hypertensive heart disease with heart failure; I49.8 Other specified cardiac arrhythmias; I49.5 Sick sinus syndrome; I48.0 Paroxysmal atrial fibrillation; E83.52 Hypercalcemia; Z88.0 Allergy status to penicillin; Z88.8 Allergy status to other drugs, medicaments and biological substances; E66.9 Obesity, unspecified; Z79.82 Long term (current) use of aspirin; Z79.899 Other long term (current) drug therapy; E78.5 Hyperlipidemia, unspecified; Z95.0 Presence of cardiac pacemaker; I27.20 Pulmonary hypertension, unspecified; R74.01 Elevation of levels of liver transaminase levels
CPT/HCPCS: 36415; 71045; 80053; 81001; 82310; 83605; 83690; 83735; 83880; 84443; 84484; 85025; 85610; 85730; 93005; 93306; 96372; 96374; 96376; G0378; J1650; J1940

== ENCOUNTER 2025-02-24 13:34 | Outpatient (CLI) | payer MEDICARE | END 2025-02-24 13:35 | disposition home or self-care (01) | LOC: BICMAMMO 13:34 | PROVIDERS: ATTEND Family Medicine | DX: Z78.0 Asymptomatic menopausal state (principal); M81.0 Age-related osteoporosis without current pathological fracture | CPT/HCPCS: 77080 ==